=== PATIENT | female | born 1950 | race Caucasian/White ===

== ENCOUNTER 2017-06-26 11:09 | Day surgery (SDC) | payer MEDICARE ==
[~2017-06-26 11:09] MED LIST: Buffered Lidocaine 0.9% SYRIN* 5 ML/SYR SYRINGE INTRADERM ONE; Famotidine IV* 10 MG/ML 2 ML (20 mg) IV ONE; Metoclopramide TAB* 10 MG PO ONE
[2017-06-26] MEDS ORDERED: Buffered Lidocaine 0.9% SYRIN* 5 ML/SYR SYRINGE ONE (11:24)
[2017-06-26] MEDS ORDERED: Famotidine IV* 10 MG/ML 2 ML (20 mg) ONE (11:24)
[2017-06-26] MEDS ORDERED: Metoclopramide TAB* 10 MG ONE (11:24)
[2017-06-26] MEDS ORDERED: ceFAZolin 2 GM PREMIX (*) 2 GM/50 ML BAG IVPB ONE (11:24)
[2017-06-26] MEDS ORDERED: Propofol* 10 MG/ML 20 ML BTL IV PUSH ONE (11:42)
[2017-06-26] MEDS ORDERED: Ondansetron INJ* 2 MG/ML VIAL ONE (11:42)
[2017-06-26] MEDS ORDERED: KETAMINE HCL* 50 MG/ML 10 ML VIAL ONE (11:42)
[2017-06-26] MEDS ORDERED: Lidocaine 2% PF * 5 ML VIAL ONE (11:42)
[2017-06-26] MEDS ORDERED: Midazolam* 1 MG/ML 5 ML VIAL (5 MG) ONE (11:42)
[2017-06-26] MEDS ORDERED: fentaNYL* 50 MCG/ML 2 ML VIAL (100 MCG VIAL) ONE (11:42)
[2017-06-26] MEDS ORDERED: Dexamethasone IV* 4 MG/ML 1 ML (4 MG) ONE (11:42)
[2017-06-26] MEDS ORDERED: Ketorolac INJ* 30 MG/ML 1 ML VIAL ONE (11:42)
[2017-06-26] MEDS ORDERED: Neostigmine Methylsulfate* 2 MG/2 ML SYRINGE ONE (11:50)
[2017-06-26] MEDS ORDERED: Glycopyrrolate IV* 0.2 MG/ML 1 ML VIAL ONE (11:50)
[2017-06-26] MEDS ORDERED: Labetalol IV* 5 MG/ML 20 ML VIAL ONE (12:08)
[2017-06-26] MEDS ORDERED: Lidocaine 1% INJ* 10 MG/ML 30 ML SDV ONE (12:27)
[2017-06-26] MEDS ORDERED: Bupivacaine 0.5% SDV PF* 30 ML VIAL ONE (12:27)
[2017-06-26] MEDS ORDERED: Ondansetron INJ* 2 MG/ML VIAL IV PRN (13:23)
[2017-06-26] MEDS ORDERED: fentaNYL* 50 MCG/ML 2 ML VIAL (100 MCG VIAL) IV PRN (13:23)
[2017-06-26] MEDS ORDERED: EPHEDrine (Pressors)* 50 MG/ML VIAL ONE (13:28)
[2017-06-26] MEDS ORDERED: oxyCODONE/Acetamin 5/325 MG* TAB PO PRN (13:45)
--- NOTE | 2017-06-26 13:51 | PN ---
Progress Note - Progress Note Date of Service: 06/26/17 Note: Brief Operative Note: Pre-op: Left inguinal lymphadenopathy; hx marginal zone lymphoma Post-op: Same Surgery: Excision of left inguinal lymph nodes Surgeon: Dr. Lay Linen Folder: EMILIO Sheets Anaesthesia: MAC and local EBL: Minimal Fluids: LR 500 cc Catheter: None Drains: None Specimen: Left inguinal lymph nodes Findings: See dictated op note
[2017-06-26 15:00] VITALS: BP 111/73
--- NOTE | 2017-06-29 10:24 | OP ---
CC: Dr. Sayda Mcneill; Dr. Mono Loredo, [facility] DATE OF OPERATION: 06/26/17 DATE OF : 52 SURGEON: Camden Lay MD. CENTER REP: EMILIO Kruse. ANESTHESIOLOGIST: ANESTHESIA: Local MAC anesthesia. PRE-OP DIAGNOSES: Left inguinal lymphadenopathy and history of marginal zone lymphoma. POST-OP DIAGNOSES: Left inguinal lymphadenopathy and history of marginal zone lymphoma. PROCEDURE: Excision of left inguinal lymph node. ESTIMATED BLOOD LOSS: Minimal blood loss. IV FLUIDS: 500 cc crystalloid fluid given. SPECIMENS: Left inguinal lymph node. DRAINS: None. DESCRIPTION OF PROCEDURE: The patient was identified in the preoperative. The area was marked. Con sent was signed. She was brought to the operating room. General sedation was given. The patient's l eft groin and lower abdomen were prepped and draped sterilely and a time-out was performed. The patient had received preoperative antibiotics and sequential devices. Injection with lidocaine for local block was performed and a transverse site overlying the lesion, th is incision was made. Flaps are made both superiorly and inferiorly and lymph node was removed both with blunt and sharp dissection in its entirety and passed off as specimen. The wound was then irrig ated. Hemostasis achieved. The the skin was reapproximated with 3-0 Polysorb sutures followed by 4- 0 Monocryl subcuticular stitches. Steri-strips and sterile dressings were applied. [id number]/[facility] #: [id number]
== END 2017-06-26 15:10 | disposition home or self-care (01) ==
LOC: OR 11:09
PROVIDERS: ATTEND Surgery
DX: C83.05 Small cell B-cell lymphoma, lymph nodes of inguinal region and lower limb (principal); E03.9 Hypothyroidism, unspecified; F17.210 Nicotine dependence, cigarettes, uncomplicated; C83.84 Other non-follicular lymphoma, lymph nodes of axilla and upper limb
CPT/HCPCS: 88184; 88185; 88188; 88307; 88333; 88341; 88342; 88360; A9270-GY; J0690; J1100; J1885; J2001; J2250; J2405; J2704; J3010

== ENCOUNTER 2018-05-22 07:52 | Inpatient (IN) | payer MEDICARE ==
[2018-05-22] MEDS: NS 0.9% 1000 ML* 2,000 ML IV ONE ×2 (08:24→08:25)
[2018-05-22] MEDS ORDERED: Meclizine TAB* 12.5 MG PO ONE (08:26)
[2018-05-22 08:41] LABS: EGFR Non-African American 44.5 (>60)
[2018-05-22 09:10] LABS: ABS Basophils 0.1 10^3/ul (0-0.2); ABS Eosinophils 0.2 10^3/ul (0-0.6); ABS Lymphocytes 2.1 10^3/ul (1.0-4.8); ABS Monocytes 0.5 10^3/ul (0-0.8); ABS Neutrophils 6.7 10^3/ul (1.5-7.7); ABS Nucleated RBC 0 10^3/ul; Eosinophil % 1.8 % (0-6); Hematocrit 43 % (35-47); Hemoglobin 14.4 g/dl (12.0-16.0); Lymphocyte % 21.8 % (25-47); Mean Corpuscular HGB Conc 33 g/dl (31-36); Mean Corpuscular Hemoglobin 33 pg (27-31); Mean Corpuscular Volume 98 fL (80-97); Mean Platelet Volume 8.8 um3 (7.4-10.4); Nucleated Red Blood Cells % 0; Platelet Count 308 10^3/ul (150-450); Red Blood Count 4.38 10^6/ul (4.00-5.40); Red Cell Distribution Width 15 % (10.5-15); White Blood Count 9.6 10^3/ul (3.5-10.8)
--- NOTE | 2018-05-22 09:24 | RAD ---
INDICATION: Dizziness, diaphoresis. COMPARISON: Comparison is made with a prior study from November 19, 2010. TECHNIQUE: AP and lateral views of the chest were obtained. FINDINGS: The heart is within normal limits in size. Mediastinal and hilar contours appear within normal limits. The lungs are underinflated and clear. No pleural effusion is seen. IMPRESSION: NO EVIDENCE FOR ACTIVE CARDIOPULMONARY DISEASE.
[2018-05-22] MEDS ORDERED: LORazepam INJ* 2 MG/ML 1 ML VIAL IV PUSH ONE (09:54)
[2018-05-22] MEDS ORDERED: Iodixanol* (CONTRAST) 320 MG/ML 100 ML SDV IV ONE (10:13)
--- NOTE | 2018-05-22 11:06 | RAD ---
HISTORY: dizziness COMPARISONS: None TECHNIQUE: Multiple contiguous axial CT scans were obtained of the head without intravenous contrast. FINDINGS: The study is limited by patient motion artifact. HEMORRHAGE/INFARCT: There is no hemorrhage or acute infarct. MASSES/SHIFT: There is no mass or shift. EXTRA-AXIAL SPACES: There are no extra-axial fluid collections. SULCI AND VENTRICLES: The sulci and ventricles are normal in size and position for the patient's stated age. CEREBRUM: There are no focal parenchymal abnormalities. BRAINSTEM: There are no focal parenchymal abnormalities. CEREBELLUM: There are no focal parenchymal abnormalities. VESSELS: The vessels are grossly normal. PARANASAL SINUSES: The paranasal sinuses are clear. ORBITS: The orbits are unremarkable. BONES AND SOFT TISSUE: No bone or soft tissue abnormalities are noted. OTHER: None IMPRESSION: NO ACUTE INTRACRANIAL PATHOLOGY.
--- NOTE | 2018-05-22 11:07 | RAD ---
HISTORY: CA hx/ SOB/ diaphoretic COMPARISONS: PET/CT dated May 31, 2017 TECHNIQUE: Multiple contiguous axial CT scans of the chest were obtained after the administration of nonionic intravenous contrast, timed to the pulmonary arterial phase of contrast enhancement.. Coronal and sagittal multiplanar reformations are also submitted for review. FINDINGS: NECK AND THYROID: The lower neck and thyroid are unremarkable. CHEST WALL: There is no lower cervical, axillary, or supraclavicular lymphadenopathy by size criteria. HEART AND PERICARDIUM: The heart is unremarkable. AORTA AND PULMONARY VASCULATURE: There is no pulmonary arterial filling defect to suggest pulmonary embolism. The aorta is not well evaluated secondary to technique and phase of contrast demonstration. There is mild calcific atherosclerosis disease. The aorta is otherwise grossly normal.. MEDIASTINUM: There is no mediastinal lymphadenopathy by size criteria. DONNA: There is no hilar lymphadenopathy by size criteria. AIRWAY AND ESOPHAGUS: The airway is unremarkable, without endobronchial filling defect. The esophagus is grossly normal. LUNG PARENCHYMA: The lungs are clear. PLEURA: No pleural abnormalities are noted. UPPER ABDOMEN: The upper abdomen is unremarkable. BONES AND SOFT TISSUES: No bone or soft tissue abnormalities are noted. OTHER: None. IMPRESSION: NO PULMONARY ARTERIAL FILLING DEFECT TO SUGGEST PULMONARY EMBOLISM.
[2018-05-22 11:17] LABS: Urine Appearance Cloudy; Urine Blood Negative (Negative); Urine Color Yellow; Urine Ketones Negative (Negative); Urine Protein Negative (Negative); Urine Red Blood Cell 1+(3-5/hpf) (Absent); Urine Specific Gravity 1.019 (1.010-1.030); Urine Urobilinogen Negative (Negative); Urine White Blood Cell 3+(>20/hpf) (Absent)
[2018-05-22] MEDS: Heparin VIAL(*) 5000 UNITS/ML VIAL (FIVE THOUSAND) SUBCUT SCH ×2 (14:10→22:11)
--- NOTE | 2018-05-22 16:16 | RAD ---
HISTORY: Dizziness COMPARISONS: CT dated May 22, 2018 TECHNIQUE: The following sequences were obtained of the head: Sagittal T1-weighted images, axial T2-weighted images, axial FLAIR images, axial susceptibility weighted images, axial T1-weighted images. Additionally, axial diffusion-weighted images were obtained with calculated apparent diffusion coefficients. FINDINGS: HEMORRHAGE/INFARCT: There is no hemorrhage or acute infarct. MASSES/SHIFT: There is no mass or shift. EXTRA-AXIAL SPACES/MENINGES: There are no extra-axial fluid collections. SULCI AND VENTRICLES: The sulci and ventricles are normal in size and position for the patient's stated age. CEREBRUM: There are multiple scattered small foci of elevated T2/FLAIR signal within the periventricular and subcortical white matter. BRAINSTEM: There are no focal parenchymal abnormalities. CEREBELLUM: There are no focal parenchymal abnormalities. The cerebellar tonsils are normal in size and position. SELLA: The sella is normal. PINEAL: The pineal region is clear. CP ANGLE/TEMPORAL BONES: The labyrinthine structures are grossly normal. VESSELS: Normal flow-voids are noted within the visualized vertebral vasculature. DIFFUSION ABNORMALITIES: There are no diffusion abnormalities. PARANASAL SINUSES/MASTOIDS: The paranasal sinuses are clear. ORBITS: The orbits are unremarkable. BONES AND SOFT TISSUE: No bone or soft tissue abnormalities are noted. OTHER: None IMPRESSION: 1. THERE ARE MULTIPLE FOCI OF ELEVATED T2/FLAIR SIGNAL WITHIN THE PERIVENTRICULAR AND SUBCORTICAL WHITE MATTER. WHILE THESE FINDINGS ARE NONSPECIFIC, THEY CAN BE SEEN IN ASSOCIATION WITH MIGRAINE HEADACHE, THE SEQUELA OF PREVIOUS INFECTION OR INFLAMMATION, AND CHRONIC SMALL VESSEL ISCHEMIA. DEMYELINATING DISEASE IS ALSO WITHIN THE DIFFERENTIAL, BUT IS CONSIDERED LESS LIKELY IN THE ABSENCE OF THE APPROPRIATE CLINICAL PRESENTATION. 2. THERE IS NO RESTRICTED DIFFUSION TO SUGGEST ACUTE INFARCT.
[2018-05-22] MEDS: Meclizine TAB* 12.5 MG PO PRN (18:51)
--- NOTE | 2018-05-22 21:07 | HP ---
CC: Mono Loredo MD * HISTORY AND PHYSICAL: DATE OF ADMISSION: 05/22/18 PRIMARY CARE PROVIDER: Mono Loredo MD ATTENDING PHYSICIAN: Marlo Thomas MD * (dictated by Megha Trejo NP) CHIEF COMPLAINT: Dizziness and vomiting. HISTORY OF PRESENT ILLNESS: Ms. Sarmiento is a 67-year-old female with past medical history significant for hypothyroidism and low-grade non-Hodgkin's lymphoma who states that she has been in her usual health over the last few days with the exception of "fan sounds" in her right ear intermittently. She states that she rolled over this morning in bed at approximately 6 am and developed dizziness. She describes this as "room spinning". This is also accompanied by vomiting this morning. She denies any fevers, chills, chest pain , cough, upper respiratory symptoms, shortness of breath, abdominal pain, any urinary symptoms such as urgency, dysuria, or changes in frequency. Due to her dizziness and vomiting, her daughter brought her to the emergency room for further evaluation of her symptoms. While in the emergency room, the patient received meclizine, 2 L of normal saline, Ativan. She had a urinalysis that was unremarkable and EKG showing a sinus noe, head CTA showing no acute pathology, a CTA of her chest showing no PE. It has been noted on triage, the patient was noted to be hypoxic with O2 sats 84% on room air. She was maintaining oxygen saturation levels in the high 90s to 100s on 3 L, and on 2 L via nasal cannula she is in the low 90s. The patient notes that she has continued to have dizziness in the emergency room when she opens her eyes. This is exacerbated by evaluating eye movement. The patient reports that the fanned noise in her right ear has resolved during her time in the emergency room. She was influenza A, B negative. She had a head CT with no acute intracranial pathology, a chest CTA showing no PE. The patient received Ativan while in the ER. She is more lethargic and drowsy after receiving the Ativan. Per her daughter, her speech is slower but this was not occurring prior to receiving the Ativan in the emergency room. She has no other speech or neurological deficits. The hospitalists were asked to evaluate the patient for admission. PAST MEDICAL HISTORY: 1. Hypothyroidism. 2. Non-Hodgkin's lymphoma. PAST SURGICAL HISTORY: 1. Status post right inguinal hernia repair as a child. 2. Status post tubal ligation. MEDICATIONS: Home medications include levothyroxine 250 mcg oral daily. ALLERGIES: No known drug allergies. FAMILY HISTORY: The patient's mother with a history of an AR. Sister with heart disease. Mother with type 2 diabetes mellitus. Her mother has a history of blood cancer, she is unsure the name of it. Additionally, she had a brother with metastatic cancer with unknown cause. SOCIAL HISTORY: She smokes a half a pack a day. She smoked for the last 54 years. She occasionally drinks alcohol. Denies recreational drug use. Her daughter, Celeste Sarmiento, will be her surrogate decision maker in the event she is unable to make decisions for herself. REVIEW OF SYSTEMS: I performed an 11-point review of systems. All the pertinent positives and negatives are mentioned in the history of present illness. The remaining review of systems is negative. PHYSICAL EXAMINATION GENERAL APPEARANCE: The patient is alert, pleasant, appears to be in no acute distress. VITAL SIGNS: Temperature 97.4, heart rate 57, respiratory rate 21, O2 sat 95% on 3 L via nasal cannula, blood pressure 117/81. HEENT: Normocephalic, atraumatic. Pupils are equal and reactive to light. Extraocular movements are intact. The patient is noted to have resting nystagmus in addition to horizontal nystagmus with eye movement. RESPIRATORY: There is no accessory muscle use. Her lungs are clear to auscultation, bilateral. CARDIOVASCULAR: Regular rate and rhythm. S1, S2 present. There are no murmurs , rubs, or gallops heard. ABDOMEN: Soft, nontender, nondistended. There are bowel sounds present x4. EXTREMITIES: There is no lower extremity edema. DP, PT pulses are 1+ and symmetric. MUSCULOSKELETAL: There is no clubbing or cyanosis noted. The patient exhibits good strength in all extremities. NEUROLOGICAL: The patient is alert and oriented x4. Cranial nerves II through XII are grossly intact. Her handgrips are equal. She has strong dorsi and plantarflexion. Again, she moves all her extremities. As above, she is noted to have resting and horizontal nystagmus. PSYCHOLOGICAL: The patient is calm and cooperative. SKIN: There are no rashes or abnormalities seen. DIAGNOSTIC STUDIES/LAB DATA: Sodium 140, potassium 3.8, chloride 101, CO2 of 33, BUN 17, creatinine 1.21, glucose 162. White blood cell count 9.6, hemoglobin 14.4, hematocrit 43, platelet count 308,000. Influenza A, B negative. Urinalysis significant for leukocyte esterase 2+, wbc's 3+, rbc's 1+, squamous epithelial cells present, and hyaline casts present. EKG shows a sinus bradycardia, rate of 58. There are no acute signs of ischemia. This is similar to previous from 11/19/10. Brain CT from today. Radiologist's impression: No acute intracranial pathology. Chest CTA from today. Radiologist's impression: No pulmonary arterial filling defect to suggest pulmonary embolus. IMPRESSION: Ms. Sarmiento is a 67-year-old female with past medical history significant for hypothyroidism and low-grade non-Hodgkin's lymphoma who presented to the emergency room with complaints of dizziness. She will be admitted as an observation for dizziness and rule out cerebrovascular accident. ASSESSMENT/PLAN: 1. Dizziness. This could represent a vestibular pathology or a stroke. We will monitor her on telemetry. I am going to check an MRI. If this is negative , I will hold on further stroke workup. If this is positive for a stroke, we will get an echocardiogram. Additionally, I will check fasting lipids. We will do neuro checks q.4 hours. I will check orthostatic vital signs. 2. Hypoxia. She had a CTA of her chest and that is negative for a pulmonary embolism. It is unclear if she typically runs hypoxic at baseline with her smoking history. I am going to check an ABG and continue supplemental oxygen as needed. 3. Acute kidney injury. The patient's creatinine appears to be elevated above her baseline. I am going to give her some IV fluids. I will recheck labs in the morning. 4. Hypothyroidism. We will continue her on her home levothyroxine dosing. 5. Non-Hodgkin's lymphoma. The patient will continue to follow with her PCP and Oncology. This is not an active issue. 6. Obesity. The patient's BMI is approximately 29. 7. Fluids, electrolytes, and nutrition. She will be on a regular diet. 8. Code status. Full code. 9. DVT prophylaxis. She is at high risk. She will be on subcu heparin. 10. Disposition. Observation. TIME SPENT: Time for this admission was approximately 60 minutes, greater than half of that was spent with the patient and her daughter discussing medications , past medical history, events leading to her arrival today, performing a physical examination. The case has been reviewed with the attending, Dr. Thomas, who agrees with the plan of care. Reviewed by GUANACO COURTNEY 05/25/18 [id number]/[facility] #: [id number] MTDD
[2018-05-23] MEDS: Heparin VIAL(*) 5000 UNITS/ML VIAL (FIVE THOUSAND) SUBCUT SCH ×2 (06:34→14:09)
[2018-05-23 07:04] LABS: EGFR Non-African American 44.9 (>60)
[2018-05-23] MEDS: Meclizine TAB* 12.5 MG PO PRN (07:51)
[2018-05-23] MEDS: Levothyroxine TAB* 50 MCG TAB PO SCH (07:51)
[2018-05-23] MEDS ORDERED: Diazepam TAB(*) 5 MG PO PRN (10:21)
--- NOTE | 2018-05-23 13:00 | ECHO ---
Patient: NIDHI QUEVEDO [facility] Rec#: [id number] : 1950 Date: 05/23/2018 Age: 67y Height: 177 cm / 69.7 in Weight: 90.7 kg / 199.9 lbs Sex: F BSA: 2.1 Room#: [facility] Admit Date#: 05/22/2018 Type: Inpatient Referring: Izabella Live Reading: Camden Salgado DO [employer] Fab[employer]ator: Kristin Way RN RDCS CC: Mono Loredo MD Transthoracic Echocardiogram Indication: TIA BP: 116/82 HR: 60 Rhythm: NSR with PACs Findings History: Thyroid disease, low grade non-Hodgkins lymphoma, smoker Technical Comments: The study is technically limited due to patient body habitus. The study is technically limited due to the patient's smoking history. Left Ventricle: The left ventricular chamber size is normal. Mild concentric left ventricular hypertrophy is observed. Global left ventricular wall motion and contractility are within normal limits. There is normal left ventricular systolic function. The estimated ejection fraction is 60-65%. There is no consistent Doppler evidence of clinically significant diastolic dysfunction. Left Atrium: The left atrial chamber size is normal. Right Ventricle: The right ventricular chamber size and systolic function are within normal limits. Right Atrium: The right atrial cavity size is normal. The bubble study is negative. A patent foramen ovale is not demonstrated with color Doppler and agitated contrast. Aortic Valve: The aortic valve is trileaflet. The aortic valve leaflets are mildly thickened. There is trace to mild aortic regurgitation. There is no evidence of aortic stenosis. Mitral Valve: The mitral valve leaflets are mildly thickened. There is a trace of mitral regurgitation. There is no evidence of mitral stenosis. Tricuspid Valve: The tricuspid valve structure is not well visualized. There is trace tricuspid regurgitation. Unable to estimate the right ventricular systolic pressure. Pulmonic Valve: The pulmonic valve appears normal. There is a trace pulmonic regurgitation. There is no pulmonic stenosis. Pericardium: There is no significant pericardial effusion. Aorta: There is no dilatation of the ascending aorta. There is no dilatation of the aortic arch. There is mild dilatation of the aortic root. Pulmonary Artery: The main pulmonary artery is not well visualized. Venous: The venous system is not well visualized. The inferior vena cava is not visualized. Contrast: Normal saline was used as contrast for the bubble study. Images 1 and 2. Conclusions The left ventricular chamber size is normal. Mild concentric left ventricular hypertrophy is observed. Global left ventricular wall motion and contractility are within normal limits. There is normal left ventricular systolic function. The estimated ejection fraction is 60-65%. The left atrial chamber size is normal. The right ventricular chamber size and systolic function are within normal limits. No significant valvular abnormalities noted The bubble study is negative. There is mild dilatation of the aortic root. None prior for comparison at time of interpretation Measurements Name Value Normal Range RVDdMajor (2D) 2.7 cm (2.2 - 4.4) RAd ISD 4CH 4.1 cm (3.4 - 4.9) RA (A4C)W 3.5 cm (2.9 - 4.6) IVSd (2D) 1.1 cm (0.6 - 1) LVPWd (2D) 1.1 cm (0.6 - 1) LVIDd (2D) 4.4 cm (3.6 - 5.4) LVIDs (2D) 2.8 cm - LV FS (2D) 36 % (25 - 45) Aortic Annulus 2.3 cm (1.4 - 2.6) Ao root diameter (2D) 3.6 cm (2.1 - 3.5) Ascending Ao 3.5 cm (2.1 - 3.4) Aortic arch 2.9 cm (1.8 - 3.4) LA dimension (AP) 2D 3.1 cm (2.3 - 3.8) LAd ISD 4CH 4.2 cm (2.9 - 5.3) LA ISD 4CH W 3.8 cm (2.5 - 4.5) Name Value Normal Range LA ESV BP (A/L) index 14.5 ml/m2 - Name Value Normal Range MV E-wave Vmax 0.88 m/sec - MV deceleration time 222 msec - MV A-wave Vmax 0.77 m/sec - MV E:A ratio 1.1 ratio - LV septal e' Vmax 0.07 m/sec - LV lateral e' Vmax 0.06 m/sec - LV E:e' septal ratio 12.6 ratio - LV E:e' lateral ratio 14.7 ratio - Name Value Normal Range AV Vmax 1.2 m/sec - AV VTI 26.2 cm - AV peak gradient 6 mmHg - AV mean gradient 3 mmHg - LVOT Vmax 0.74 m/sec - LVOT VTI 14.6 cm - LVOT peak gradient 2 mmHg - LVOT mean gradient 1 mmHg - WINDY Vmax 0.52 m/sec - Name Value Normal Range PV Vmax 0.43 m/sec -
--- NOTE | 2018-05-23 13:07 | RAD ---
HISTORY: acute vertigo COMPARISONS: MRI of the brain dated May 22, 2018 TECHNIQUE: 3-D axial [id number] MR angiography was performed of the head to include the in[place] of [place]. Multiple 3-D maximum intensity projection reconstructions are also submitted for review. FINDINGS: The study is limited by patient motion artifact. RIGHT VERTEBRAL ARTERY: The distal right vertebral artery is unremarkable, without stenosis. LEFT VERTEBRAL ARTERY: The distal left vertebral artery is unremarkable, without stenosis. DOMINANCE: The vertebral arteries are codominant. DISTAL RIGHT CERVICAL INTERNAL CAROTID ARTERY: The distal right cervical internal carotid artery is unremarkable. DISTAL LEFT CERVICAL INTERNAL CAROTID ARTERY: The distal left cervical internal carotid artery is unremarkable. INTRACRANIAL CIRCULATION: There is no aneurysm, vascular malformation, occlusion, or stenosis of the visualized intracranial circulation. The anterior communicating artery complex is clear. The posterior communicating arteries are diminutive if present. OTHER FINDINGS: None IMPRESSION: LIMITED STUDY. NO ANEURYSM, VASCULAR MALFORMATION, OCCLUSION, OR STENOSIS OF THE VISUALIZED INTRACRANIAL CIRCULATION.
--- NOTE | 2018-05-23 13:10 | RAD ---
HISTORY: Dizziness, suspect left cerebellar stroke COMPARISONS: May 22, 2018 TECHNIQUE: The following sequences were obtained of the head: Sagittal T1-weighted images, axial T2-weighted images, axial FLAIR images, axial susceptibility weighted images, axial T1-weighted images. Additionally, axial diffusion-weighted images were obtained with calculated apparent diffusion coefficients. FINDINGS: HEMORRHAGE/INFARCT: There is no hemorrhage or acute infarct. MASSES/SHIFT: There is no mass or shift. EXTRA-AXIAL SPACES/MENINGES: There are no extra-axial fluid collections. SULCI AND VENTRICLES: The sulci and ventricles are normal in size and position for the patient's stated age. CEREBRUM: There are multiple scattered small foci of elevated T2/FLAIR signal within the periventricular and subcortical white matter. BRAINSTEM: There are no focal parenchymal abnormalities. CEREBELLUM: There are no focal parenchymal abnormalities. On axial images, left inferior cerebellum appears mildly dysplastic, though this is felt to represent volume averaging through a mildly prominent left cerebellar fissure. The cerebellar tonsils are normal in size and position. SELLA: The sella is normal. PINEAL: The pineal region is clear. CP ANGLE/TEMPORAL BONES: The labyrinthine structures are grossly normal. VESSELS: Normal flow-voids are noted within the visualized vertebral vasculature. DIFFUSION ABNORMALITIES: There are no diffusion abnormalities. PARANASAL SINUSES/MASTOIDS: The paranasal sinuses are clear. There are small bilateral mastoid effusions. ORBITS: The orbits are unremarkable. BONES AND SOFT TISSUE: No bone or soft tissue abnormalities are noted. OTHER: None IMPRESSION: 1. STABLE SCATTERED NONSPECIFIC WHITE MATTER CHANGES. 2. NO RESTRICTED DIFFUSION TO SUGGEST ACUTE INFARCT.
--- NOTE | 2018-05-23 14:05 | RAD ---
INDICATION: Vertigo. COMPARISON: No relevant prior exams available on the [facility] [place] for [place]. TECHNIQUE: Bilateral carotid duplex scan. Stenosis estimations reflect velocity criteria that have been correlated to angiographic stenosis calculations based on distal internal carotid diameter. REPORT: RIGHT ICA: 44 cm/s peak systolic 20 cm/s end diastolic CCA: 62 cm/s peak systolic ICA/CCA peak systolic ratio: 0.71 The right common carotid artery and internal carotid artery are without evidence for significant atherosclerotic disease. Tortuous RIGHT internal carotid artery. Normal spectral wave forms are present throughout. Antegrade flow in the right vertebral artery. LEFT ICA: 50 cm/s peak systolic 24 cm/s end diastolic CCA: 51 cm/s peak systolic ICA/CCA peak systolic ratio: 1.1 Minimal predominant calcific plaque at the LEFT carotid bulb and proximal internal carotid artery. Normal spectral wave forms are present throughout. Antegrade flow in the left vertebral artery. IMPRESSION: #. Minimal atherosclerotic plaque at the LEFT carotid bifurcation without appreciable internal carotid artery stenosis resulting based on NASCET criteria. #. Negative for atherosclerotic disease at the RIGHT carotid artery. CPT II Codes: 3100F
--- NOTE | 2018-05-23 16:37 | PN ---
Subjective Date of Service: 05/23/18 Interval History: Patient seen and examined. Remains dizzy. Denies chest pain, no SOB, denies palpitations. Intermittent nausea. Family at bedside. Objective Active Medications: Diazepam (Valium Tab(*)) 5 mg PO Q8H PRN PRN Reason: vertigo Stop: 05/24/18 18:00 Last Admin: 05/23/18 11:15 Dose: 5 mg Heparin Sodium (Porcine) (Heparin Vial(*)) 5,000 units SUBCUT Q8HR GURJIT Last Admin: 05/23/18 14:09 Dose: 5,000 units Influenza Virus Vaccine (Fluarix *Quad* 2018-*) 0.5 ml IM .ONCE ONE Stop: 05/24/18 09:01 Levothyroxine Sodium (Synthroid Tab*) 250 mcg PO 0800 [facility] Last Admin: 05/23/18 07:51 Dose: 250 mcg Meclizine HCl (Antivert Tab*) 25 mg PO Q8HR PRN PRN Reason: DIZZINESS Last Admin: 05/23/18 07:51 Dose: 25 mg Vital Signs - 8 hr 05/23/18 05/23/18 05/23/18 11:15 11:26 15:19 Temperature 98.7 F 97.7 F Pulse Rate 63 67 Respiratory 18 18 16 Rate Blood Pressure 112/76 131/67 (mmHg) O2 Sat by Pulse 96 94 Oximetry Oxygen Devices in Use Now: Nasal Cannula Appearance: Drowsy, NAD Eyes: No Scleral Icterus, PERRLA Ears/Nose/Mouth/Throat: Mucous Membranes Moist Neck: NL Appearance and Movements; NL JVP, Trachea Midline Respiratory: Symmetrical Chest Expansion and Respiratory Effort, Clear to Auscultation Cardiovascular: NL Sounds; No Murmurs; No JVD Abdominal: NL Sounds; No Tenderness; No Distention Extremities: No Edema, No Clubbing, Cyanosis Skin: No Rash or Ulcers Neurological: Alert and Oriented x 3, NL Muscle Strength and Tone Nutrition: Taking PO's Result Diagrams: 05/22/18 08:14 05/23/18 06:13 Microbiology and Other Data: Microbiology 05/22/18 10:13 Urine Culture - Final Urine 05/22/18 08:16 Influenza Types A,B Antigen - Final Nasal Specimen received for Influenza A/B Molecular testing Diagnostic Imaging: Patient Name: NIDHI QUEVEDO Vidal Medical Record#: [id number] Ordering Physician: Stephanie Paiz MD Acct.#: [id number] : 1950 Age: 67 Sex: F Location: 4 [facility]/TELEMETRY Exam Date: 05/23/18 1041 ADM Status: ADM Seema Order Information: VL CAROTID BILATERAL Accession Number: [id number] CPT: 01708 INDICATION: Vertigo. COMPARISON: No relevant prior exams available on the [facility] PACS for comparison. TECHNIQUE: Bilateral carotid duplex scan. Stenosis estimations reflect velocity criteria that have been correlated to angiographic stenosis calculations based on distal internal carotid diameter. REPORT: RIGHT ICA: 44 cm/s peak systolic 20 cm/s end diastolic CCA: 62 cm/s peak systolic ICA/CCA peak systolic ratio: 0.71 The right common carotid artery and internal carotid artery are without evidence for significant atherosclerotic disease. Tortuous RIGHT internal carotid artery. Normal spectral wave forms are present throughout. Antegrade flow in the right vertebral artery. LEFT ICA: 50 cm/s peak systolic 24 cm/s end diastolic CCA: 51 cm/s peak systolic ICA/CCA peak systolic ratio: 1.1 Minimal predominant calcific plaque at the LEFT carotid bulb and proximal internal carotid artery. Normal spectral wave forms are present throughout. Antegrade flow in the left vertebral artery. IMPRESSION: #. Minimal atherosclerotic plaque at the LEFT carotid bifurcation without appreciable internal carotid artery stenosis resulting based on NASCET criteria. #. Negative for atherosclerotic disease at the RIGHT carotid artery. CPT II Codes: 3100F Patient Name: NIDHI QUEVEDO Medical Record#: [id number] Ordering Physician: Stephanie Paiz MD Acct.#: [id number] : 1950 Age: 67 Sex: F [facility] 4 [facility] Exam Date: 05/23/18 1003 ADM Status: ADM Seema Order Information: MRI BRAIN W/O Accession Number: [id number] CPT: 36265 HISTORY: Dizziness, suspect left cerebellar stroke COMPARISONS: May 22, 2018 TECHNIQUE: The following sequences were obtained of the head: Sagittal T1- weighted images, axial T2-weighted images, axial FLAIR images, axial susceptibility weighted images, axial T1-weighted images. Additionally, axial diffusion-weighted images were obtained with calculated apparent diffusion coefficients. FINDINGS: HEMORRHAGE/INFARCT: There is no hemorrhage or acute infarct. MASSES/SHIFT: There is no mass or shift. EXTRA-AXIAL SPACES/MENINGES: There are no extra-axial fluid collections. SULCI AND VENTRICLES: The sulci and ventricles are normal in size and position for the patient's stated age. CEREBRUM: There are multiple scattered small foci of elevated T2/FLAIR signal within the periventricular and subcortical white matter. BRAINSTEM: There are no focal parenchymal abnormalities. CEREBELLUM: There are no focal parenchymal abnormalities. On axial images, left inferior cerebellum appears mildly dysplastic, though this is felt to represent volume averaging through a mildly prominent left cerebellar fissure. The cerebellar tonsils are normal in size and position. SELLA: The sella is normal. PINEAL: The pineal region is clear. CP ANGLE/TEMPORAL BONES: The labyrinthine structures are grossly normal. VESSELS: Normal flow-voids are noted within the visualized vertebral vasculature. DIFFUSION ABNORMALITIES: There are no diffusion abnormalities. PARANASAL SINUSES/MASTOIDS: The paranasal sinuses are clear. There are small bilateral mastoid effusions. ORBITS: The orbits are unremarkable. BONES AND SOFT TISSUE: No bone or soft tissue abnormalities are noted. OTHER: None IMPRESSION: 1. STABLE SCATTERED NONSPECIFIC WHITE MATTER CHANGES. 2. NO RESTRICTED DIFFUSION TO SUGGEST ACUTE INFARCT. <Electronically signed by Jason Gardner MD in OV> 05/23/18 130 Dictated By: Jason Gardner MD Dictated Date/Time: 05/23/18 130 Transcribed Date/Time: 05/23/18 130 This report is only to be considered final once signed by the Provider(s) as displayed in the "<Electronically Signed by >" field (s). Absence of a signature indicates the report is in a draft status and still needs to be finalized. In the event this document was created by someone other than the signing Provider, the individual initiating the document will be listed in the "Entered by:" or "Dictated by:" reyez. 1 of 2 Patient Name: NIDHI QUEVEDO Medical Record#: [id number] Ordering Physician: Na JHAVERI Acct.#: [id number] : 1950 Age: 67 Sex: F Location: EMERGENCY DEPARTMENT Exam Date: 05/22/18 0951 ADM Status: REG ER Order Information: CTA CHEST Accession Number: [id number] CPT: 67660 HISTORY: CA hx/ SOB/ diaphoretic COMPARISONS: PET/CT dated May 31, 2017 TECHNIQUE: Multiple contiguous axial CT scans of the chest were obtained after the administration of nonionic intravenous contrast, timed to the pulmonary arterial phase of contrast enhancement.. Coronal and sagittal multiplanar reformations are also submitted for review. FINDINGS: NECK AND THYROID: The lower neck and thyroid are unremarkable. CHEST WALL: There is no lower cervical, axillary, or supraclavicular lymphadenopathy by size criteria. HEART AND PERICARDIUM: The heart is unremarkable. AORTA AND PULMONARY VASCULATURE: There is no pulmonary arterial filling defect to suggest pulmonary embolism. The aorta is not well evaluated secondary to technique and phase of contrast demonstration. There is mild calcific atherosclerosis disease. The aorta is otherwise grossly normal.. MEDIASTINUM: There is no mediastinal lymphadenopathy by size criteria. DONNA: There is no hilar lymphadenopathy by size criteria. AIRWAY AND ESOPHAGUS: The airway is unremarkable, without endobronchial filling defect. The esophagus is grossly normal. LUNG PARENCHYMA: The lungs are clear. PLEURA: No pleural abnormalities are noted. UPPER ABDOMEN: The upper abdomen is unremarkable. BONES AND SOFT TISSUES: No bone or soft tissue abnormalities are noted. OTHER: None. IMPRESSION: NO PULMONARY ARTERIAL FILLING DEFECT TO SUGGEST PULMONARY EMBOLISM. <Electronically signed by Jason Gardner MD in OV> 05/22/18 110 Dictated By: Jason Gardner MD Dictated Date/Time: 05/22/18 110 Transcribed Date/Time: 05/22/18 110 Copy to: Assess/Plan/Problems-Billing Assessment: This is a 67 year old female with history of low grade lymphoma and tobacco abuse, that presented to the ER with complaint of persistent, intractable dizziness, hypoxia, and vomiting. - Patient Problems (1) Dizziness Code(s): R42 - DIZZINESS AND GIDDINESS SNOMED Code(s): 516423370 Comment: - r/o TIA vs. CVA vs BPPV? Confounding with episode of afib overnight - MRI, MRA, US carotids as above - Neurology consult appreciated, [place] Maneuvers applied by Dr. Paiz, appears to be improved - ECHO with negative bubble study - Continue meclizine and valium PRN with anti-emetics - PT/OT - Optimize lipids, will start high dose statin and AC (2) History of lymphoma Code(s): Z85.79 - PRSNL HX OF MALIG NEOPLM OF LYMPHOID, HEMATPOETC & REL TISS SNOMED Code(s): 131115019 Comment: - Stable (3) Hypoxia Code(s): R09.02 - HYPOXEMIA SNOMED Code(s): 022476242 Comment: - Etiology unclear, may be underlaying COPD - CTA chest negative for PE - Wean O2 as tolerated (4) PAF (paroxysmal atrial fibrillation) Code(s): I48.0 - PAROXYSMAL ATRIAL FIBRILLATION SNOMED Code(s): 951157424 Comment: - Noted on tele overnight, not captured on EKG - May be having small embolic events given MRI findings (nothing new or acute though) which may be contributing to current symptoms - Discussed anticoagulation with neurology, does not appear to need rate control, will start eliquis Status and Disposition: Remain inpatient. DC to home when medically stable.
--- NOTE | 2018-05-23 17:45 | CONS ---
NEUROLOGY CONSULTATION NOTE: DATE OF CONSULT: 05/23/18 CONSULTING PROVIDER: Izabella Phipps NP CHIEF COMPLAINT: Dizziness and abnormal MRI. HISTORY OF PRESENT ILLNESS: Ms. Sarmiento is a pleasant 67-year-old female with a history of tobacco use, non-Hodgkin's lymphoma, hypothyroidism, who presented with sudden-onset vertigo. The patient woke up at 6:30 a.m. on 05/22/18. She opened her eyes without having any vertigo. She turned around to get up when suddenly she felt a may of vertiginous sensation. The room was spinning and going towards the left side. She was extremely off-balance. The spinning sensation was continuous. Moving her head right or left worsens the vertigo. She had nausea and vomiting all throughout the morning yesterday. She was unable to stand on her feet due to severe vertigo. She denied any focal weakness or paresthesias. She denied any headaches. She denied any double vision. She denied any swallowing difficulties. She has never had vertigo in the past. She denied any chest pain or palpitation. She denied any hearing loss or tinnitus, but she did have a fan-like sensation/sound in the right ear that lasted for a few hours. The patient was evaluated in the emergency room. She received meclizine with [id number]-[id number]-wg benefit. She continues to be symptomatic this morning. PAST MEDICAL HISTORY: Hypothyroidism, non-Hodgkin's lymphoma, obesity, dyslipidemia. PAST SURGICAL HISTORY: Inguinal hernia repair as a child and tubal ligation. HOME MEDICATION: Levothyroxine 250 mcg oral daily. ALLERGIES: No known drug allergies. FAMILY HISTORY: Her father unfortunately when she was 4 years of age due to a motor vehicle accident. Her mother has a history of myocardial infarction. There is no family history of stroke or seizures. SOCIAL HISTORY: The patient smokes for more than 54 years. She currently averages a half a pack per day. She rarely drinks alcohol. She denied any recreational drugs. REVIEW OF SYSTEMS: A 14-point review of systems was obtained, otherwise negative except for what was mentioned in the HPI. PHYSICAL EXAM: Vitals: Temperature 97.4, heart rate of 59, respiratory rate of 16, oxygen saturation of 93, blood pressure of 116/82. General: Ill- appearing female in no acute distress but feels nauseated and vertiginous. Head is normocephalic without any obvious abnormality. HiNT examination is positive towards the left side. Eyes: Conjunctivae/corneas are clear. Neck: Supple and symmetrical. No carotid bruits. Lungs are clear to auscultation bilaterally. Cardiovascular: Sounds bradycardia with normal S1, S2. Extremities: Normal range of motion with no cyanosis. Skin: No skin lesions or lacerations. Psych: Affect is broad and normal mood. Mental Status: Awake , alert, and oriented to person, place, time, and general circumstances. Speech and language including expression, naming, repetition, and comprehension were assessed and found to be normal. Cranial Nerves: Normal confrontation testing bilaterally. Pupils in mid range and reactive to light measuring 4 mm bilaterally and constricted to 3 mm with light. She has no ptosis. She does have a rotatory horizontally prominent nystagmus with a fast pace going towards the left side on primary gaze. The increase in frequency and intensity of the nystagmus is seen when looking towards the left. She has no double vision. No facial droop. She is able to hear throughout the history process. Symmetrical palatal elevation. Normal strength against resistance. Undilated funduscopic examination reveals no evidence of increased intraocular pressure. She has sharp disc margins. Motor: No abnormal movements, although I found slight decrease in rapid alternating movement on the left upper extremity. 5/5 strength in the upper and lower extremities bilaterally. Reflexes, right/left: Brachioradialis 2/2, biceps 2/2, triceps 2/2, patella 2/2, ankles trace/trace, plantar flexor/mute. Sensation is intact to light touch and pinprick throughout. Coordination: Mild dysmetria to ffwogj-pn-ovqh on the left and more prominent dysmetria to [id number] testing on the left lower extremity. Gait and station were not assessed as the patient is severely vertiginous. DIAGNOSTIC STUDIES/LAB DATA: WBC 9.6, hemoglobin 14.4, hematocrit 43, platelets of 308. Sodium 142, potassium 4.4, chloride 103, creatinine 1.20. Cholesterol 428, LDL cholesterol 256. Urinalysis showed no evidence of bacteria or pyuria. She does have 3+ wbc's and 2+ leukocyte esterase, but she denied any dysuria. She had an EKG that showed a prolonged QTc of 512. She also had a prolonged NE at 222 milliseconds and heart rate of 58. She was found to be in atrial fibrillation intermittently on tele. CT of the chest showed no evidence of pulmonary arterial filling defect to suggest PE. Brain CT showed no acute intracranial pathology. MRI of the brain without contrast showed multiple foci of elevated T2/FLAIR signal throughout the brain with no evidence of an acute ischemic infarction. C-reactive protein was 3.24. TSH was not recently checked. ASSESSMENT AND PLAN: 1. Ms. Mehreen Sarmiento is a pleasant 67-year-old female who has a history of tobacco use and is overweight, who presented with sudden-onset continuous vertigo. On examination, she has concerning neurological signs of primary gaze rotatory with predominantly horizontal nystagmus towards the left side that does not fatigue. This is concerning for a central cause for the vertigo.. Given the slight dysmetria to mxwcgx-ru-gnlu and cmjo-hn-tyjv testing on the left side, I am concerned that she may have had left cerebellar ischemic stroke that was not seen on the initial MRI. Strokes in the posterior fossa can be missed on MRI within the first 24 hours. Other differential diagnosis would be atypical, severe, benign paroxysmal positional vertigo, although we should not be seeing primary gaze nystagmus or any other focal neurological deficits. What may support the benign paroxysmal positional vertigo diagnosis is that her HiNT examination was positive. I started the patient on Valium 5 mg every 8 hours as needed for severe vertigo. Continue meclizine 25 mg every 8 hours. 2. Paroxysmal atrial fibrillation - the patient will require anticoagulation therapy. 3. Abnormal diffuse chronic small vessel disease on MRI - her risk factors include dyslipidemia and chronic tobacco use. It does not appear that this is related to a demyelinating process given that the patient has never had any clinical evidence of demyelinating disease and she has other risk factors to have chronic white matter changes related to small vessel disease. 4. Dyslipidemia - LDL is 256. RECOMMENDATION: I have reordered an MRI of the brain only to obtain the DWI and ADC sequences to confirm that there is no stroke in the posterior fossa. If there is, the patient will confirm the diagnosis that was based off her clinical examination. If the MRI is negative, then we can safely conclude that she has BPPV. Please also obtain an MRA head and an MRA of neck to evaluate the carotid vasculature. She is pending an echo. She will require anticoagulation therapy given the episodes of atrial fibrillation. I will also recommend starting her on high-dose atorvastatin 80 mg daily given her LDL level. I have ordered a TSH and vitamin B12 level. Neurology will continue to follow. TIME SPENT: I spent a total of 70 minutes and greater than 50% was spent directly reviewing the medical chart, obtaining history, examining the patient, education and counseling, and discussing the treatment plan as mentioned above. [id number]/[facility] #: [id number] ELENA
[2018-05-23] MEDS ORDERED: Atorvastatin* 80 MG TAB PO ONE (21:00)
[2018-05-23] MEDS ORDERED: Atorvastatin* 20 MG TAB PO SCH (21:00)
[2018-05-23] MEDS: Apixaban* 5 MG TAB PO SCH (22:08)
--- NOTE | 2018-05-24 06:47 | ED ---
Dizziness - HPI Summary HPI Summary: Patient is a 67-year-old female with a PMH of low-grade non-Hodgkin's lymphoma presenting to the ED with acute onset of dizziness and diaphoresis without chest pain or shortness of breath 2 hours [employer]. Daughter at bedside. Daughter states she became immediately diaphoretic and was unable to stand on her own. She describes the room as spinning. After developing the dizziness, she states she had episodes of vomiting. Denies any fevers, sweats, chills, cough or shortness of breath. She is a heavy smoker 50 years, but has never been diagnosed with COPD. - History Of Current Complaint Chief Complaint: EDNauseaVomitDiarrh Stated Complaint: DIZZINESS Time Seen by Provider: 05/22/18 07:59 Hx Obtained From: Patient Timing: Constant Severity Initially: Mild Severity Currently: Mild Character: Room Spinning Aggravating Factor(s): Other - Not associated with position change or headache Alleviating Factor(s): Nothing Associated Signs And Symptoms: Positive: Nausea, Vomiting. Negative: Diarrhea, Diaphoresis, Unsteady Gait, Visual Changes, Decreased Oral Intake - Risk Factors Cardiac Risk Factors: Negative CVA Risk Factor: Negative - Allergies/Home Medications Allergies/Adverse Reactions: Allergies Allergy/AdvReac Type Severity Reaction Status Date / Time No Known Allergies Allergy Verified 06/26/17 11:38 PMH/Surg Hx/FS Hx/Imm Hx Previously Healthy: Yes Endocrine/Hematology History: Reports: Hx Thyroid Disease - hypothyroidism Cardiovascular History: Denies: Hx Pacemaker/ICD Musculoskeletal History: Reports: Hx Arthritis Sensory History: Reports: Hx Contacts or Glasses Denies: Hx Hearing Aid, Hx Hearing Problem Opthamlomology History: Reports: Hx Contacts or Glasses Psychiatric History: Denies: Hx Panic Disorder - Cancer History Cancer Type, Location and Year: Non hodgekins lymphoma Hx Chemotherapy: No - Surgical History Surgery Procedure, Year, and Place: henia repair as an . thyroid surgery in the s. tubal ligation late . breast bx; lumpectomy Hx Anesthesia Reactions: No - Immunization History Hx Pertussis Vaccination: No Immunizations Up to Date: Yes Infectious Disease History: No Infectious Disease History: Denies: Hx Clostridium Difficile, Hx Hepatitis, Hx Human Immunodeficiency Virus (HIV), Hx of Known/Suspected MRSA, Hx Shingles, Hx Tuberculosis, Traveled Outside the [place] in Last 30 Days - Social History Occupation: Unemployed Lives: With Family Alcohol Use: None Hx Substance Use: No Substance Use Type: Reports: None Hx Tobacco Use: Yes Smoking Status (MU): Heavy Every Day Tobacco Smoker Type: Cigarettes Amount Used/How Often: 1/2 ppd, has smoked on and off since 16 years old Length of Time of Smoking/Using Tobacco: 50 Have You Smoked in the Last Year: Yes Review of Systems Constitutional: Negative Negative: Fever, Chills, Fatigue, Skin Diaphoresis Negative: Palpitations, Chest Pain Negative: Shortness Of Breath, Cough Positive: Nausea. Negative: Abdominal Pain, Vomiting, Diarrhea Genitourinary: Negative Positive: no symptoms reported, see HPI Negative: Arthralgia, Myalgia Negative: Rash, Bruising Positive: Weakness - dizziness Psychological: Normal All Other Systems Reviewed And Are Negative: Yes Physical Exam Triage Information Reviewed: Yes Vital Signs On Initial Exam: Initial Vitals Temp Pulse Resp BP Pulse Ox 97.4 F 68 16 142/79 84 05/22/18 07:54 05/22/18 07:54 05/22/18 07:54 05/22/18 07:54 05/22/18 07:54 Vital Signs Reviewed: Yes Appearance: Positive: Well-Appearing, Well-Nourished Skin: Positive: Warm, Skin Color Reflects Adequate Perfusion Head/Face: Positive: Normal Head/Face Inspection Eyes: Positive: Other: - Nystagmus at rest Neck: Positive: Supple, No Lymphadenopathy Respiratory/Lung Sounds: Positive: Wheezes - Bilaterally Cardiovascular: Positive: Pulses are Symmetrical in both Upper and Lower Extremities Musculoskeletal: Positive: Strength/ROM Intact Neurological: Positive: Alert, Oriented to Person Place, Time, Speech Normal Psychiatric: Positive: Normal, Affect/Mood Appropriate AVPU Assessment: Alert - [place] Coma Scale Best Eye Response: 4 - Spontaneous Best Motor Response: 6 - Obeys Commands Best Verbal Response: 5 - Oriented Coma Scale Total: 15 Diagnostics - Vital Signs Vital Signs Temp Pulse Resp BP Pulse Ox 05/22/18 12:14 60 22 141/86 91 05/22/18 12:00 61 22 94 05/22/18 11:44 56 20 112/79 95 05/22/18 11:14 57 21 117/81 95 05/22/18 11:00 59 23 95 05/22/18 10:52 60 22 138/87 100 05/22/18 10:14 61 19 129/87 95 05/22/18 10:07 18 05/22/18 10:00 65 20 87 05/22/18 09:55 66 14 143/75 89 05/22/18 09:44 17 119/83 05/22/18 09:14 56 14 129/89 93 05/22/18 09:00 59 21 93 05/22/18 08:44 60 15 154/86 94 05/22/18 08:14 63 20 146/96 96 05/22/18 08:05 21 05/22/18 07:54 97.4 F 68 16 142/79 84 - Laboratory Lab Results: Lab Results 05/22/18 05/22/18 05/22/18 Range/Units 08:14 08:14 08:14 WBC 9.6 (3.5-10.8) 10^3/ul RBC 4.38 (4.00-5.40) 10^6/ul Hgb 14.4 (12.0-16.0) g/dl Hct 43 (35-47) % MCV 98 H (80-97) fL MCH 33 H (27-31) pg MCHC 33 (31-36) g/dl RDW 15 (10.5-15) % Plt Count 308 (150-450) 10^3/ul MPV 8.8 (7.4-10.4) um3 Neut % (Auto) 69.7 (38-83) % Lymph % (Auto) 21.8 L (25-47) % [place] % (Auto) 5.7 (0-7) % Eos % (Auto) 1.8 (0-6) % Baso % (Auto) 1.0 (0-2) % Absolute Neuts (auto) 6.7 (1.5-7.7) 10^3/ul Absolute Lymphs (auto) 2.1 (1.0-4.8) 10^3/ul Absolute Monos (auto) 0.5 (0-0.8) 10^3/ul Absolute Eos (auto) 0.2 (0-0.6) 10^3/ul Absolute Basos (auto) 0.1 (0-0.2) 10^3/ul Absolute Nucleated RBC 0 10^3/ul Nucleated RBC % 0 Sodium 140 (135-145) mmol/L Potassium 3.8 (3.5-5.0) mmol/L Chloride 101 (101-111) mmol/L Carbon Dioxide 33 H (22-32) mmol/L Anion Gap 6 (2-11) mmol/L BUN 17 (6-24) mg/dL Creatinine 1.21 H (0.51-0.95) mg/dL Est GFR ( Amer) 53.9 (>60) Est GFR (Non-Af Amer) 44.5 (>60) BUN/Creatinine Ratio 14.0 (8-20) Glucose 162 H (70-100) mg/dL Lactic Acid 1.4 (0.5-2.0) mmol/L Calcium 9.5 (8.6-10.3) mg/dL Total Bilirubin 0.40 (0.2-1.0) mg/dL AST 36 (13-39) U/L ALT 23 (7-52) U/L Alkaline Phosphatase 82 (34-104) U/L C-Reactive Protein 3.24 (<8.01) mg/L Total Protein 7.3 (6.4-8.9) g/dL Albumin 4.4 (3.2-5.2) g/dL Globulin 2.9 (2-4) g/dL Albumin/Globulin Ratio 1.5 (1-3) Urine Color Urine Appearance Urine pH (5-9) Ur Specific [place] (1.010-1.030) Urine Protein (Negative) Urine Ketones (Negative) Urine Blood (Negative) Urine Nitrate (Negative) Urine Bilirubin (Negative) Urine Urobilinogen (Negative) Ur Leukocyte Esterase (Negative) Urine WBC (Auto) (Absent) Urine RBC (Auto) (Absent) Ur Squamous Epith Cells (Absent) Urine Bacteria (Absent) Hyaline Casts (Absent) Urine Glucose (Negative) Influenza A (Rapid) (Negative) Influenza B (Rapid) (Negative) 05/22/18 05/22/18 Range/Units 08:27 10:13 WBC (3.5-10.8) 10^3/ul RBC (4.00-5.40) 10^6/ul Hgb (12.0-16.0) g/dl Hct (35-47) % MCV (80-97) fL MCH (27-31) pg MCHC (31-36) g/dl RDW (10.5-15) % Plt Count (150-450) 10^3/ul MPV (7.4-10.4) um3 Neut % (Auto) (38-83) % Lymph % (Auto) (25-47) % [place] % (Auto) (0-7) % Eos % (Auto) (0-6) % Baso % (Auto) (0-2) % Absolute Neuts (auto) (1.5-7.7) 10^3/ul Absolute Lymphs (auto) (1.0-4.8) 10^3/ul Absolute Monos (auto) (0-0.8) 10^3/ul Absolute Eos (auto) (0-0.6) 10^3/ul Absolute Basos (auto) (0-0.2) 10^3/ul Absolute Nucleated RBC 10^3/ul Nucleated RBC % Sodium (135-145) mmol/L Potassium (3.5-5.0) mmol/L Chloride (101-111) mmol/L Carbon Dioxide (22-32) mmol/L Anion Gap (2-11) mmol/L BUN (6-24) mg/dL Creatinine (0.51-0.95) mg/dL Est GFR ( Amer) (>60) Est GFR (Non-Af Amer) (>60) BUN/Creatinine Ratio (8-20) Glucose (70-100) mg/dL Lactic Acid (0.5-2.0) mmol/L Calcium (8.6-10.3) mg/dL Total Bilirubin (0.2-1.0) mg/dL AST (13-39) U/L ALT (7-52) U/L Alkaline Phosphatase (34-104) U/L C-Reactive Protein (<8.01) mg/L Total Protein (6.4-8.9) g/dL Albumin (3.2-5.2) g/dL Globulin (2-4) g/dL Albumin/Globulin Ratio (1-3) Urine Color Yellow Urine Appearance Cloudy Urine pH 5.0 (5-9) Ur Specific [place] 1.019 (1.010-1.030) Urine Protein Negative (Negative) Urine Ketones Negative (Negative) Urine Blood Negative (Negative) Urine Nitrate Negative (Negative) Urine Bilirubin Negative (Negative) Urine Urobilinogen Negative (Negative) Ur Leukocyte Esterase 2+ A (Negative) Urine WBC (Auto) 3+(>20/hpf) A (Absent) Urine RBC (Auto) 1+(3-5/hpf) A (Absent) Ur Squamous Epith Cells Present A (Absent) Urine Bacteria Absent (Absent) Hyaline Casts Present A (Absent) Urine Glucose Negative (Negative) Influenza A (Rapid) Negative (Negative) Influenza B (Rapid) Negative (Negative) Result Diagrams: 05/22/18 08:14 05/23/18 06:13 Lab Statement: Any lab studies that have been ordered have been reviewed, and results considered in the medical decision making process. Dizzy Course/Dx - Course Course Of Treatment: During the course treatment, the patient is evaluated for dizziness. She is given meclizine on arrival, labs obtained and fluids are given. UA obtained which is unremarkable and EKG shows a sinus bradycardia. Due to her dizziness is CT brain was obtained which shows no acute intracranial pathology. On arrival her oxygen saturation is 84% on room air and she is immediately placed on 3 L elevating her oxygen saturation to the mid 90s. She states she is not on oxygen at home and has not been complaining of soreness of breath. This could be new and at her baseline, however to assess for other shortness of breath and etiologies, CTA of the chest was completed which shows no evidence of pulmonary embolism. She continues to report dizziness despite the meclizine, so was given Ativan 1 mg IV. Patient did report some noise in her right ear prior to arrival, however this has dissipated. Influenza swabs obtained which are negative. Discussed case with hospitalist who agrees to admit. Will call for an ABG due to hypoxia and possibly further a neuro consult for continuing dizziness. - Diagnoses Differential Diagnosis/HQI/PQRI: Other - Dizziness Provider Diagnoses: Dizziness - Provider Notifications Discussed Care Of Patient With: Malro Thomas Discharge - Sign-Out/Discharge Documenting (check all that apply): Patient Departure - Discharge Plan Condition: Fair Disposition: ADMITTED TO [facility] - Billing Disposition and Condition Condition: FAIR Disposition: Admitted to [facility]
[2018-05-24] MEDS: Levothyroxine TAB* 50 MCG TAB PO SCH (08:27)
[2018-05-24] MEDS: Apixaban* 5 MG TAB PO SCH ×2 (08:27→21:40)
--- NOTE | 2018-05-24 16:50 | PN ---
Subjective Date of Service: 05/24/18 Interval History: continues to c/o dizziness improving. patient continue to by hypoxic on RA with o2 saturation decreasing to 84%. denies chest pain or shortness of breath. Denies BRADSHAW or visual changes. Denies abd pain n/v/d. Family History: Unchanged from Admission Social History: Unchanged from Admission Past Medical History: Unchanged from Admission Objective Active Medications: Apixaban (Eliquis*) 5 mg PO BID [facility] Last Admin: 05/24/18 08:27 Dose: 5 mg Diazepam (Valium Tab(*)) 5 mg PO Q8H PRN PRN Reason: vertigo Stop: 05/24/18 18:00 Last Admin: 05/23/18 11:15 Dose: 5 mg Levothyroxine Sodium (Synthroid Tab*) 250 mcg PO 0800 [facility] Last Admin: 05/24/18 08:27 Dose: 250 mcg Meclizine HCl (Antivert Tab*) 25 mg PO Q8HR PRN PRN Reason: DIZZINESS Last Admin: 05/23/18 07:51 Dose: 25 mg Vital Signs - 8 hr 05/24/18 05/24/18 05/24/18 10:46 11:38 15:53 Temperature 97.7 F 98.2 F Pulse Rate 68 72 Respiratory 18 18 Rate Blood Pressure 113/70 133/76 (mmHg) O2 Sat by Pulse 84 91 92 Oximetry Oxygen Devices in Use Now: Nasal Cannula Appearance: appears comfortable resting in bed. no acute distress Eyes: No Scleral Icterus Ears/Nose/Mouth/Throat: Clear Oropharnyx, Mucous Membranes Moist Neck: NL Appearance and Movements; NL JVP, Trachea Midline Respiratory: Symmetrical Chest Expansion and Respiratory Effort, Clear to Auscultation Cardiovascular: NL Sounds; No Murmurs; No JVD, No Edema Abdominal: NL Sounds; No Tenderness; No Distention Lymphatic: No Cervical Adenopathy Extremities: No Edema, No Clubbing, Cyanosis Skin: No Rash or Ulcers Neurological: Alert and Oriented x 3, - - nystagmus noted with left and right lateral gazes Nutrition: Taking PO's Result Diagrams: 05/22/18 08:14 05/23/18 06:13 Additional Lab and Data: Lab Results 05/22/18 05/22/18 05/22/18 Range/Units 08:14 08:14 08:14 WBC 9.6 (3.5-10.8) 10^3/ul RBC 4.38 (4.00-5.40) 10^6/ul Hgb 14.4 (12.0-16.0) g/dl Hct 43 (35-47) % MCV 98 H (80-97) fL MCH 33 H (27-31) pg MCHC 33 (31-36) g/dl RDW 15 (10.5-15) % Plt Count 308 (150-450) 10^3/ul MPV 8.8 (7.4-10.4) um3 Neut % (Auto) 69.7 (38-83) % Lymph % (Auto) 21.8 L (25-47) % Blount % (Auto) 5.7 (0-7) % Eos % (Auto) 1.8 (0-6) % Baso % (Auto) 1.0 (0-2) % Absolute Neuts (auto) 6.7 (1.5-7.7) 10^3/ul Absolute Lymphs (auto) 2.1 (1.0-4.8) 10^3/ul Absolute Monos (auto) 0.5 (0-0.8) 10^3/ul Absolute Eos (auto) 0.2 (0-0.6) 10^3/ul Absolute Basos (auto) 0.1 (0-0.2) 10^3/ul Absolute Nucleated RBC 0 10^3/ul Nucleated RBC % 0 Sodium 140 (135-145) mmol/L Potassium 3.8 (3.5-5.0) mmol/L Chloride 101 (101-111) mmol/L Carbon Dioxide 33 H (22-32) mmol/L Anion Gap 6 (2-11) mmol/L BUN 17 (6-24) mg/dL Creatinine 1.21 H (0.51-0.95) mg/dL Est GFR ( Amer) 53.9 (>60) Est GFR (Non-Af Amer) 44.5 (>60) BUN/Creatinine Ratio 14.0 (8-20) Glucose 162 H (70-100) mg/dL Lactic Acid 1.4 (0.5-2.0) mmol/L Calcium 9.5 (8.6-10.3) mg/dL Total Bilirubin 0.40 (0.2-1.0) mg/dL AST 36 (13-39) U/L ALT 23 (7-52) U/L Alkaline Phosphatase 82 (34-104) U/L C-Reactive Protein 3.24 (<8.01) mg/L Total Protein 7.3 (6.4-8.9) g/dL Albumin 4.4 (3.2-5.2) g/dL Globulin 2.9 (2-4) g/dL Albumin/Globulin Ratio 1.5 (1-3) Urine Color Urine Appearance Urine pH (5-9) Ur Specific Canon (1.010-1.030) Urine Protein (Negative) Urine Ketones (Negative) Urine Blood (Negative) Urine Nitrate (Negative) Urine Bilirubin (Negative) Urine Urobilinogen (Negative) Ur Leukocyte Esterase (Negative) Urine WBC (Auto) (Absent) Urine RBC (Auto) (Absent) Ur Squamous Epith Cells (Absent) Urine Bacteria (Absent) Hyaline Casts (Absent) Urine Glucose (Negative) Influenza A (Rapid) (Negative) Influenza B (Rapid) (Negative) 05/22/18 05/22/18 Range/Units 08:27 10:13 WBC (3.5-10.8) 10^3/ul RBC (4.00-5.40) 10^6/ul Hgb (12.0-16.0) g/dl Hct (35-47) % MCV (80-97) fL MCH (27-31) pg MCHC (31-36) g/dl RDW (10.5-15) % Plt Count (150-450) 10^3/ul MPV (7.4-10.4) um3 Neut % (Auto) (38-83) % Lymph % (Auto) (25-47) % Blount % (Auto) (0-7) % Eos % (Auto) (0-6) % Baso % (Auto) (0-2) % Absolute Neuts (auto) (1.5-7.7) 10^3/ul Absolute Lymphs (auto) (1.0-4.8) 10^3/ul Absolute Monos (auto) (0-0.8) 10^3/ul Absolute Eos (auto) (0-0.6) 10^3/ul Absolute Basos (auto) (0-0.2) 10^3/ul Absolute Nucleated RBC 10^3/ul Nucleated RBC % Sodium (135-145) mmol/L Potassium (3.5-5.0) mmol/L Chloride (101-111) mmol/L Carbon Dioxide (22-32) mmol/L Anion Gap (2-11) mmol/L BUN (6-24) mg/dL Creatinine (0.51-0.95) mg/dL Est GFR ( Amer) (>60) Est GFR (Non-Af Amer) (>60) BUN/Creatinine Ratio (8-20) Glucose (70-100) mg/dL Lactic Acid (0.5-2.0) mmol/L Calcium (8.6-10.3) mg/dL Total Bilirubin (0.2-1.0) mg/dL AST (13-39) U/L ALT (7-52) U/L Alkaline Phosphatase (34-104) U/L C-Reactive Protein (<8.01) mg/L Total Protein (6.4-8.9) g/dL Albumin (3.2-5.2) g/dL Globulin (2-4) g/dL Albumin/Globulin Ratio (1-3) Urine Color Yellow Urine Appearance Cloudy Urine pH 5.0 (5-9) Ur Specific Canon 1.019 (1.010-1.030) Urine Protein Negative (Negative) Urine Ketones Negative (Negative) Urine Blood Negative (Negative) Urine Nitrate Negative (Negative) Urine Bilirubin Negative (Negative) Urine Urobilinogen Negative (Negative) Ur Leukocyte Esterase 2+ A (Negative) Urine WBC (Auto) 3+(>20/hpf) A (Absent) Urine RBC (Auto) 1+(3-5/hpf) A (Absent) Ur Squamous Epith Cells Present A (Absent) Urine Bacteria Absent (Absent) Hyaline Casts Present A (Absent) Urine Glucose Negative (Negative) Influenza A (Rapid) Negative (Negative) Influenza B (Rapid) Negative (Negative) Microbiology and Other Data: Microbiology 05/22/18 10:13 Urine Culture - Final Urine 05/22/18 08:16 Influenza Types A,B Antigen - Final Nasal Specimen received for Influenza A/B Molecular testing Diagnostic Imaging: Patient Name: NIDHI QUEVEDO Medical Record#: [id number] Ordering Physician: Stephanie Paiz MD Acct.#: [id number] : 1950 Age: 67 Sex: F Location: 4 [facility]TELE[facility] Exam Date: 05/23/18 1041 ADM Status: ADM Seema Order Information: VL CAROTID BILATERAL Accession Number: [id number] CPT: 39325 INDICATION: Vertigo. COMPARISON: No relevant prior exams available on the [facility] PACS for comparison. TECHNIQUE: Bilateral carotid duplex scan. Stenosis estimations reflect velocity criteria that have been correlated to angiographic stenosis calculations based on distal internal carotid diameter. REPORT: RIGHT ICA: 44 cm/s peak systolic 20 cm/s end diastolic CCA: 62 cm/s peak systolic ICA/CCA peak systolic ratio: 0.71 The right common carotid artery and internal carotid artery are without evidence for significant atherosclerotic disease. Tortuous RIGHT internal carotid artery. Normal spectral wave forms are present throughout. Antegrade flow in the right vertebral artery. LEFT ICA: 50 cm/s peak systolic 24 cm/s end diastolic CCA: 51 cm/s peak systolic ICA/CCA peak systolic ratio: 1.1 Minimal predominant calcific plaque at the LEFT carotid bulb and proximal internal carotid artery. Normal spectral wave forms are present throughout. Antegrade flow in the left vertebral artery. IMPRESSION: #. Minimal atherosclerotic plaque at the LEFT carotid bifurcation without appreciable internal carotid artery stenosis resulting based on NASCET criteria. #. Negative for atherosclerotic disease at the RIGHT carotid artery. CPT II Codes: 3100F Patient Name: NIDHI QUEVEDO Medical Record#: [id number] Ordering Physician: Stephanie Paiz MD Acct.#: [id number] : 1950 Age: 67 Sex: F Location: 4 [facility] Exam Date: 05/23/18 1003 ADM Status: ADM Seema Order Information: MRI BRAIN W/O Accession Number: [id number] CPT: 05055 HISTORY: Dizziness, suspect left cerebellar stroke COMPARISONS: May 22, 2018 TECHNIQUE: The following sequences were obtained of the head: Sagittal T1- weighted images, axial T2-weighted images, axial FLAIR images, axial susceptibility weighted images, axial T1-weighted images. Additionally, axial diffusion-weighted images were obtained with calculated apparent diffusion coefficients. FINDINGS: HEMORRHAGE/INFARCT: There is no hemorrhage or acute infarct. MASSES/SHIFT: There is no mass or shift. EXTRA-AXIAL SPACES/MENINGES: There are no extra-axial fluid collections. SULCI AND VENTRICLES: The sulci and ventricles are normal in size and position for the patient's stated age. CEREBRUM: There are multiple scattered small foci of elevated T2/FLAIR signal within the periventricular and subcortical white matter. BRAINSTEM: There are no focal parenchymal abnormalities. CEREBELLUM: There are no focal parenchymal abnormalities. On axial images, left inferior cerebellum appears mildly dysplastic, though this is felt to represent volume averaging through a mildly prominent left cerebellar fissure. The cerebellar tonsils are normal in size and position. SELLA: The sella is normal. PINEAL: The pineal region is clear. CP ANGLE/TEMPORAL BONES: The labyrinthine structures are grossly normal. VESSELS: Normal flow-voids are noted within the visualized vertebral vasculature. DIFFUSION ABNORMALITIES: There are no diffusion abnormalities. PARANASAL SINUSES/MASTOIDS: The paranasal sinuses are clear. There are small bilateral mastoid effusions. ORBITS: The orbits are unremarkable. BONES AND SOFT TISSUE: No bone or soft tissue abnormalities are noted. OTHER: None IMPRESSION: 1. STABLE SCATTERED NONSPECIFIC WHITE MATTER CHANGES. 2. NO RESTRICTED DIFFUSION TO SUGGEST ACUTE INFARCT. <Electronically signed by Jason Gardner MD in OV> 05/23/18 130 Dictated By: Jason Gardner MD Dictated Date/Time: 05/23/181306 Transcribed Date/Time: 05/23/18 130 This report is only to be considered final once signed by the Provider(s) as displayed in the "<Electronically Signed by >" field (s). Absence of a signature indicates the report is in a draft status and still needs to be finalized. In the event this document was created by someone other than the signing Provider, the individual initiating the document will be listed in the "Entered by:" or "Dictated by:" reyez. 1 of 2 Patient Name: NIDHI QUEVEDO Medical Record#: [id number] Ordering Physician: Na JHAVERI Acct.#: [id number] : 1950 Age: 67 Sex: F Location: EMERGENCY DEPARTMENT Exam Date: 05/22/18 0951 ADM Status: REG ER Order Information: CTA CHEST Accession Number: [id number] CPT: 51042 HISTORY: CA hx/ SOB/ diaphoretic COMPARISONS: PET/CT dated May 31, 2017 TECHNIQUE: Multiple contiguous axial CT scans of the chest were obtained after the administration of nonionic intravenous contrast, timed to the pulmonary arterial phase of contrast enhancement.. Coronal and sagittal multiplanar reformations are also submitted for review. FINDINGS: NECK AND THYROID: The lower neck and thyroid are unremarkable. CHEST WALL: There is no lower cervical, axillary, or supraclavicular lymphadenopathy by size criteria. HEART AND PERICARDIUM: The heart is unremarkable. AORTA AND PULMONARY VASCULATURE: There is no pulmonary arterial filling defect to suggest pulmonary embolism. The aorta is not well evaluated secondary to technique and phase of contrast demonstration. There is mild calcific atherosclerosis disease. The aorta is otherwise grossly normal.. MEDIASTINUM: There is no mediastinal lymphadenopathy by size criteria. DONNA: There is no hilar lymphadenopathy by size criteria. AIRWAY AND ESOPHAGUS: The airway is unremarkable, without endobronchial filling defect. The esophagus is grossly normal. LUNG PARENCHYMA: The lungs are clear. PLEURA: No pleural abnormalities are noted. UPPER ABDOMEN: The upper abdomen is unremarkable. BONES AND SOFT TISSUES: No bone or soft tissue abnormalities are noted. OTHER: None. IMPRESSION: NO PULMONARY ARTERIAL FILLING DEFECT TO SUGGEST PULMONARY EMBOLISM. <Electronically signed by Jason Gardner MD in OV> 05/22/18 110 Dictated By: Jason Gardner MD Dictated Date/Time: 05/22/18 110 Transcribed Date/Time: 05/22/181101 Copy to: Assess/Plan/Problems-Billing Assessment: This is a 67 year old female with history of low grade lymphoma and tobacco abuse, that presented to the ER with complaint of persistent, intractable dizziness, hypoxia, and vomiting. - Patient Problems (1) Dizziness Current Visit: Yes Status: Acute Code(s): R42 - DIZZINESS AND GIDDINESS SNOMED Code(s): 872788167 Comment: - BPPV - Confounding with episode of afib overnight - MRI, MRA, US carotids as above - Neurology consult appreciated, Eppley Maneuvers applied by Dr. Paiz- reports dizziness is improving- continues to have, gait imbalance with walking. - ECHO with negative bubble study - Continue meclizine and valium PRN with anti-emetics - PT/OT - Optimize lipids, will start high dose statin and AC (2) PAF (paroxysmal atrial fibrillation) Current Visit: Yes Status: Acute Code(s): I48.0 - PAROXYSMAL ATRIAL FIBRILLATION SNOMED Code(s): 160162419 Comment: - Noted on tele overnight, not captured on EKG - May be having small embolic events given MRI findings (nothing new or acute though) which may be contributing to current symptoms - Discussed anticoagulation with neurology, does not appear to need rate control, will start eliquis - currently in SR on the monitor (3) Hypothyroid Current Visit: Yes Status: Acute Code(s): E03.9 - HYPOTHYROIDISM, UNSPECIFIED SNOMED Code(s): 28160976 Comment: TSH 77 - will continue levothyroxine at 250mcg - as patient reports that she does not take her levothyroxine on a daily basis and offen forget to take her medications - will need TSH rechecked in 4 to 6 weeks (4) History of lymphoma Current Visit: Yes Status: Acute Code(s): Z85.79 - PRSNL HX OF MALIG NEOPLM OF LYMPHOID, HEMATPOETC & REL TISS SNOMED Code(s): 208892833 Comment: - Stable (5) Hypoxia Current Visit: Yes Status: Acute Code(s): R09.02 - HYPOXEMIA SNOMED Code(s ): 700993304 Comment: - Etiology unclear, may be underlaying COPD - CTA chest negative for PE - attempted to wean O2 but o2 dropped to 84% on RA, recovered with 2 liters NC to 94%., will need oxygen for home (6) DVT prophylaxis Current Visit: Yes Status: Acute Code(s): ZAO1003 - SNOMED Code(s): 828539232 Comment: Ryan (7) Full code status Current Visit: Yes Status: Acute Code(s): Z78.9 - OTHER SPECIFIED HEALTH STATUS SNOMED Code(s): 092823064 Status and Disposition: Remain inpatient. DC to home when medically stable.
[2018-05-25] MEDS: Apixaban* 5 MG TAB PO SCH (07:51)
[2018-05-25] MEDS: Levothyroxine TAB* 50 MCG TAB PO SCH (07:51)
--- NOTE | 2018-05-25 11:16 | CONSULT ---
Subjective Date of Service: 05/25/18 Interval History: Admission Date: 05/22/18 Consult date 05/24/2018 Service: Hospitalist PMMohini Loredo MD CHIEF COMPLAINT: Dizziness and vomiting Reason for consult: Abnormal telemetry strips HISTORY OF PRESENT ILLNESS: Ms. Sarmiento is a 67 year old woman admitted with right ear hearing changes, positional dizziness and room spinning and vomiting. She has been diagnosed with vertigo. She is improving but still remains with symptoms. She was found with telemetry abnormalities. There were PVC's with compensatory pauses, wenkebach physiology heart block and brief arrhythmias. There was no atrial fibrillation, flutter, prolonged pauses or high degree heart block. Patient has had generalized fatigue since December. She denies any CP, sustained palpitations or syncope (had one episode as a child). She described more of fatigue than dyspnea. She was found with 02 requirements and an elevated bicarbonate suggestive of chronic respiratory failure likely related to undiagnosed smoking related COPD. Daughter is at bedside who pateint lives with. PAST MEDICAL HISTORY: 1. Hypothyroidism s/p subtotal thyroidectomy, non-adherent with synthroid 2. Non-Hodgkin's lymphoma. PAST SURGICAL HISTORY: 1. Status post right inguinal hernia repair as a child. 2. Status post tubal ligation. MEDICATIONS: Home medications include levothyroxine 250 mcg oral daily (non- adherent) ALLERGIES: No known drug allergies. FAMILY HISTORY: The patient's mother with a history of an ID. Sister with heart disease. Mother with type 2 diabetes mellitus. Her mother has a history of blood cancer, she is unsure the name of it. Additionally, she had a brother with metastatic cancer with unknown cause. SOCIAL HISTORY: She smokes a half a pack a day. She smoked for the last 54 years. She occasionally drinks alcohol. Denies recreational drug use. Her daughter, Celeste Sarmiento, will be her surrogate decision maker in the event she is unable to make decisions for herself. Medications Active Medications: Apixaban (Eliquis*) 5 mg PO BID [facility] Last Admin: 05/25/18 07:51 Dose: 5 mg Meclizine HCl (Antivert Tab*) 25 mg PO Q8HR PRN PRN Reason: DIZZINESS Last Admin: 05/23/18 07:51 Dose: 25 mg Home Medications: Levothyroxine TAB* [Synthroid 100 MCG TAB*] 250 mcg PO 0800 01/05/15 [History Confirmed 05/22/18] Review of Systems - Measurements Intake and Output: Intake and Output Last 24 Hours 05/23/18 05/24/18 05/25/18 05/26/18 06:59 06:59 06:59 06:59 Intake Total 3140 365 600 Output Total 0 700 0 Balance 3140 -335 600 Weight 200 lb 200 lb Intake: IV Fluids 2990 Oral 150 365 600 Output: Urine 0 700 0 Other: Estimated Void Large Medium # Bowel Movements 0 0 # Voids 0 2 0 - Review of Systems Constitutional Symptoms: Positive: Weakness, Fatigue Negative: Weight Loss, Fever, Night Sweats Dermatology: Negative: Rash, Skin Lesions HEENT: Negative: Change in Hearing, Vertigo Eyes: Negative: Change in Vision, Double Vision Thyroid: Negative: Constipation, Weight Loss, Weight Gain Pulmonary: Positive: Cough, Shortness of Breath, Exercise Intolerance Negative: Hemoptysis, COPD, Asthma Cardiology: Positive: Shortness of Breath Negative: Chest Pain, Palpitations, Swelling of Ankles, Peripheral Vascular Dis, Edema, Faintness, Syncope, Claudication, Paroxysmal Nocturnal Dyspnea, Orthopnea Gastroenterology: Negative: Abdominal Pain, Nausea, Vomiting, Anorexia Genital - Urinary: Negative: Dysuria, Hematuria Musculoskeletal: Negative: Joint Pain, Joint Stiffness, Arthritis Endocrinology: Negative: Adrenal Problems, Gonadal Problems, Calluses, Hirsutism, Polydipsia , Polyuria, Pituitary Disease Hematologic/Lymphatic: Negative: Use of Anticoagulant, Use of Antiplatelet Drugs Neurology: Negative: Change in Speech, Change in Sphincter Function, Change in Walking, Numbness\Paresthesiae, Hx of Stroke\TIA Psychiatry: Negative: Unusual Anxiety, Suicidal Ideation Allergic/Immunologic: Negative: Hx Anaphylaxis, Hx Angioedema, Hx HIV, Immunocompromise Review of Systems Statement: All other review of systems negative, unless stated above. Objective Vital Signs: Temp Pulse Resp BP Pulse Ox 98.1 F 72 16 132/70 98 05/25/18 07:22 05/25/18 07:22 05/25/18 08:00 05/25/18 07:22 05/25/18 07:22 Oxygen Devices in Use Now: Nasal Cannula Appearance: nad, pleasant Ears/Nose/Mouth/Throat: Clear Oropharnyx, Mucous Membranes Moist Neck: NL Appearance and Movements; NL JVP, - - thyroidectomy scar Respiratory: Symmetrical Chest Expansion and Respiratory Effort, Clear to Auscultation Cardiovascular: NL Sounds; No Murmurs; No JVD, RRR, No Edema Abdominal: NL Sounds; No Tenderness; No Distention Extremities: No Edema Skin: No Rash or Ulcers Neurological: Alert and Oriented x 3 Laboratory Results: 05/22/18 08:14 05/23/18 06:13 Total Bilirubin 0.40 mg/dL (0.2-1.0) 05/22/18 08:14 AST 36 U/L (13-39) 05/22/18 08:14 ALT 23 U/L (7-52) 05/22/18 08:14 Alkaline Phosphatase 82 U/L (34-104) 05/22/18 08:14 Total Protein 7.3 g/dL (6.4-8.9) 05/22/18 08:14 Albumin 4.4 g/dL (3.2-5.2) 05/22/18 08:14 Globulin 2.9 g/dL (2-4) 05/22/18 08:14 Albumin/Globulin Ratio 1.5 (1-3) 05/22/18 08:14 Triglycerides 473 mg/dL 05/23/18 06:13 Cholesterol 428 mg/dL 05/23/18 06:13 LDL Cholesterol Senior Account Director 05/23/18 06:13 HDL Cholesterol 42.8 mg/dL 05/23/18 06:13 TSH 77.33 mcIU/mL (0.34-5.60) H 05/23/18 06:13 direct ldl 256 Diagnostic Imaging: Brain CT admission. Radiologist's impression: No acute intracranial pathology. Chest CTA admission. Radiologist's impression: No pulmonary arterial filling defect to suggest pulmonary embolus. Brain MRI 05/23/2018: scattered non-specific white matter changes, no acute infarct echo 05/23/2018: mild LVH, normal LVEF, LA size, and no significant valvular abnormalities noted EKG Data: ekg 11/2010: NSR, LAFB with PRWP EKG on admission: Unchanged from 11/2010 Other ekgs since admsission showing pvc's Assessment/Plan 67 year old woman admitted with vertigo and cardiology consulted due to abnormal telemetry monitoring as described in HPI. - Some of her telemetry abnormalities may be related to her severe hypothyroidism which needs corrected - Would start intensive dose atorvastatin 80 mg po daily given her severe dyslipidemia and correction of thyroid abnormalities should also be of benefit with this regard. This will need rechecked through her PMD's office. We also discussed a heart healthy diet. - I think primary prevention aspirin in this high risk patient is reasonable and would start aspirin 81 mg po daily - There is no cardiac indication for a pacemaker or anticoagulation. Eliquis can be discontinued from a cardiac standpoint - Patient needs additional risk factor modification including but not limited to smoking cessation and she expressed understanding of risks of medication non- adherence and continued smoking including but not limited to stroke, heart attack and Thank you for allowing me to participate in the cardiovascular care of this patient. Please do not hesitate to contact me with questions or concerns
[2018-05-25 11:29] VITALS: BP 152/69
--- NOTE | 2018-05-25 17:45 | PN ---
Subjective Date of Service: 05/25/18 Interval History: patient reports she continues to feel off balance, with change in position. patient continues to need oxygen for maintain saturations above 90%. Denies chest pain or shortness of breath, denies abd pain n/v/d. denies headache Family History: Unchanged from Admission Social History: Unchanged from Admission Past Medical History: Unchanged from Admission Objective Active Medications: Apixaban (Eliquis*) 5 mg PO BID GURJIT Last Admin: 05/25/18 07:51 Dose: 5 mg Meclizine HCl (Antivert Tab*) 25 mg PO Q8HR PRN PRN Reason: DIZZINESS Last Admin: 05/23/18 07:51 Dose: 25 mg Vital Signs - 8 hr 05/25/18 11:27 Temperature 98.2 F Pulse Rate 71 Respiratory 20 Rate Blood Pressure 152/69 (mmHg) O2 Sat by Pulse 96 Oximetry Oxygen Devices in Use Now: Nasal Cannula Appearance: appears comfortable resting in bed, no acute distress Eyes: No Scleral Icterus Ears/Nose/Mouth/Throat: Clear Oropharnyx, Mucous Membranes Moist, - - lateral nystagmus noted Neck: NL Appearance and Movements; NL JVP, Trachea Midline Respiratory: Symmetrical Chest Expansion and Respiratory Effort, Clear to Auscultation Cardiovascular: NL Sounds; No Murmurs; No JVD, No Edema Abdominal: NL Sounds; No Tenderness; No Distention Extremities: No Edema, No Clubbing, Cyanosis Skin: No Rash or Ulcers Neurological: Alert and Oriented x 3 Nutrition: Taking PO's Result Diagrams: 05/22/18 08:14 05/23/18 06:13 Additional Lab and Data: Lab Results 05/22/18 05/22/18 05/22/18 Range/Units 08:14 08:14 08:14 WBC 9.6 (3.5-10.8) 10^3/ul RBC 4.38 (4.00-5.40) 10^6/ul Hgb 14.4 (12.0-16.0) g/dl Hct 43 (35-47) % MCV 98 H (80-97) fL MCH 33 H (27-31) pg MCHC 33 (31-36) g/dl RDW 15 (10.5-15) % Plt Count 308 (150-450) 10^3/ul MPV 8.8 (7.4-10.4) um3 Neut % (Auto) 69.7 (38-83) % Lymph % (Auto) 21.8 L (25-47) % Chambers % (Auto) 5.7 (0-7) % Eos % (Auto) 1.8 (0-6) % Baso % (Auto) 1.0 (0-2) % Absolute Neuts (auto) 6.7 (1.5-7.7) 10^3/ul Absolute Lymphs (auto) 2.1 (1.0-4.8) 10^3/ul Absolute Monos (auto) 0.5 (0-0.8) 10^3/ul Absolute Eos (auto) 0.2 (0-0.6) 10^3/ul Absolute Basos (auto) 0.1 (0-0.2) 10^3/ul Absolute Nucleated RBC 0 10^3/ul Nucleated RBC % 0 Sodium 140 (135-145) mmol/L Potassium 3.8 (3.5-5.0) mmol/L Chloride 101 (101-111) mmol/L Carbon Dioxide 33 H (22-32) mmol/L Anion Gap 6 (2-11) mmol/L BUN 17 (6-24) mg/dL Creatinine 1.21 H (0.51-0.95) mg/dL Est GFR ( Amer) 53.9 (>60) Est GFR (Non-Af Amer) 44.5 (>60) BUN/Creatinine Ratio 14.0 (8-20) Glucose 162 H (70-100) mg/dL Lactic Acid 1.4 (0.5-2.0) mmol/L Calcium 9.5 (8.6-10.3) mg/dL Total Bilirubin 0.40 (0.2-1.0) mg/dL AST 36 (13-39) U/L ALT 23 (7-52) U/L Alkaline Phosphatase 82 (34-104) U/L C-Reactive Protein 3.24 (<8.01) mg/L Total Protein 7.3 (6.4-8.9) g/dL Albumin 4.4 (3.2-5.2) g/dL Globulin 2.9 (2-4) g/dL Albumin/Globulin Ratio 1.5 (1-3) Urine Color Urine Appearance Urine pH (5-9) Ur Specific [place] (1.010-1.030) Urine Protein (Negative) Urine Ketones (Negative) Urine Blood (Negative) Urine Nitrate (Negative) Urine Bilirubin (Negative) Urine Urobilinogen (Negative) Ur Leukocyte Esterase (Negative) Urine WBC (Auto) (Absent) Urine RBC (Auto) (Absent) Ur Squamous Epith Cells (Absent) Urine Bacteria (Absent) Hyaline Casts (Absent) Urine Glucose (Negative) Influenza A (Rapid) (Negative) Influenza B (Rapid) (Negative) 05/22/18 05/22/18 Range/Units 08:27 10:13 WBC (3.5-10.8) 10^3/ul RBC (4.00-5.40) 10^6/ul Hgb (12.0-16.0) g/dl Hct (35-47) % MCV (80-97) fL MCH (27-31) pg MCHC (31-36) g/dl RDW (10.5-15) % Plt Count (150-450) 10^3/ul MPV (7.4-10.4) um3 Neut % (Auto) (38-83) % Lymph % (Auto) (25-47) % Chambers % (Auto) (0-7) % Eos % (Auto) (0-6) % Baso % (Auto) (0-2) % Absolute Neuts (auto) (1.5-7.7) 10^3/ul Absolute Lymphs (auto) (1.0-4.8) 10^3/ul Absolute Monos (auto) (0-0.8) 10^3/ul Absolute Eos (auto) (0-0.6) 10^3/ul Absolute Basos (auto) (0-0.2) 10^3/ul Absolute Nucleated RBC 10^3/ul Nucleated RBC % Sodium (135-145) mmol/L Potassium (3.5-5.0) mmol/L Chloride (101-111) mmol/L Carbon Dioxide (22-32) mmol/L Anion Gap (2-11) mmol/L BUN (6-24) mg/dL Creatinine (0.51-0.95) mg/dL Est GFR ( Amer) (>60) Est GFR (Non-Af Amer) (>60) BUN/Creatinine Ratio (8-20) Glucose (70-100) mg/dL Lactic Acid (0.5-2.0) mmol/L Calcium (8.6-10.3) mg/dL Total Bilirubin (0.2-1.0) mg/dL AST (13-39) U/L ALT (7-52) U/L Alkaline Phosphatase (34-104) U/L C-Reactive Protein (<8.01) mg/L Total Protein (6.4-8.9) g/dL Albumin (3.2-5.2) g/dL Globulin (2-4) g/dL Albumin/Globulin Ratio (1-3) Urine Color Yellow Urine Appearance Cloudy Urine pH 5.0 (5-9) Ur Specific [place] 1.019 (1.010-1.030) Urine Protein Negative (Negative) Urine Ketones Negative (Negative) Urine Blood Negative (Negative) Urine Nitrate Negative (Negative) Urine Bilirubin Negative (Negative) Urine Urobilinogen Negative (Negative) Ur Leukocyte Esterase 2+ A (Negative) Urine WBC (Auto) 3+(>20/hpf) A (Absent) Urine RBC (Auto) 1+(3-5/hpf) A (Absent) Ur Squamous Epith Cells Present A (Absent) Urine Bacteria Absent (Absent) Hyaline Casts Present A (Absent) Urine Glucose Negative (Negative) Influenza A (Rapid) Negative (Negative) Influenza B (Rapid) Negative (Negative) Microbiology and Other Data: Microbiology 05/22/18 10:13 Urine Culture - Final Urine 05/22/18 08:16 Influenza Types A,B Antigen - Final Nasal Specimen received for Influenza A/B Molecular testing Diagnostic Imaging: Patient Name: NIDHI QUEVEDO Medical Record#: [id number] Ordering Physician: Stephanie Paiz MD Acct.#: [id number] : 1950 Age: 67 Sex: F Location: [address] [place] [address]/TELEMETRY Exam Date: 05/23/18 104 ADM Status: ADM Seema Order Information: VL CAROTID BILATERAL Accession Number: [id number] CPT: 13138 INDICATION: Vertigo. COMPARISON: No relevant prior exams available on the [facility] for comparison. TECHNIQUE: Bilateral carotid duplex scan. Stenosis estimations reflect velocity criteria that have been correlated to angiographic stenosis calculations based on distal internal carotid diameter. REPORT: RIGHT ICA: 44 cm/s peak systolic 20 cm/s end diastolic CCA: 62 cm/s peak systolic ICA/CCA peak systolic ratio: 0.71 The right common carotid artery and internal carotid artery are without evidence for significant atherosclerotic disease. Tortuous RIGHT internal carotid artery. Normal spectral wave forms are present throughout. Antegrade flow in the right vertebral artery. LEFT ICA: 50 cm/s peak systolic 24 cm/s end diastolic CCA: 51 cm/s peak systolic ICA/CCA peak systolic ratio: 1.1 Minimal predominant calcific plaque at the LEFT carotid bulb and proximal internal carotid artery. Normal spectral wave forms are present throughout. Antegrade flow in the left vertebral artery. IMPRESSION: #. Minimal atherosclerotic plaque at the LEFT carotid bifurcation without appreciable internal carotid artery stenosis resulting based on NASCET criteria. #. Negative for atherosclerotic disease at the RIGHT carotid artery. CPT II Codes: 3100F Patient Name: NIDHI QUEVEDO Medical Record#: [id number] Ordering Physician: Stephanie Paiz MD Acct.#: [id number] : 1950 Age: 67 Sex: F Location: [address] [place] [address]/[place]LEMETRY Exam Date: 05/23/18 1003 ADM Status: ADM Seema Order Information: MRI BRAIN W/O Accession Number: [id number] CPT: 98981 HISTORY: Dizziness, suspect left cerebellar stroke COMPARISONS: May 22, 2018 TECHNIQUE: The following sequences were obtained of the head: Sagittal T1- weighted images, axial T2-weighted images, axial FLAIR images, axial susceptibility weighted images, axial T1-weighted images. Additionally, axial diffusion-weighted images were obtained with calculated apparent diffusion coefficients. FINDINGS: HEMORRHAGE/INFARCT: There is no hemorrhage or acute infarct. MASSES/SHIFT: There is no mass or shift. EXTRA-AXIAL SPACES/MENINGES: There are no extra-axial fluid collections. SULCI AND VENTRICLES: The sulci and ventricles are normal in size and position for the patient's stated age. CEREBRUM: There are multiple scattered small foci of elevated T2/FLAIR signal within the periventricular and subcortical white matter. BRAINSTEM: There are no focal parenchymal abnormalities. CEREBELLUM: There are no focal parenchymal abnormalities. On axial images, left inferior cerebellum appears mildly dysplastic, though this is felt to represent volume averaging through a mildly prominent left cerebellar fissure. The cerebellar tonsils are normal in size and position. SELLA: The sella is normal. PINEAL: The pineal region is clear. CP ANGLE/TEMPORAL BONES: The labyrinthine structures are grossly normal. VESSELS: Normal flow-voids are noted within the visualized vertebral vasculature. DIFFUSION ABNORMALITIES: There are no diffusion abnormalities. PARANASAL SINUSES/MASTOIDS: The paranasal sinuses are clear. There are small bilateral mastoid effusions. ORBITS: The orbits are unremarkable. BONES AND SOFT TISSUE: No bone or soft tissue abnormalities are noted. OTHER: None IMPRESSION: 1. STABLE SCATTERED NONSPECIFIC WHITE MATTER CHANGES. 2. NO RESTRICTED DIFFUSION TO SUGGEST ACUTE INFARCT. <Electronically signed by Jason Gardner MD in [place]> 05/23/18 130 Dictated By: Jason Gardner MD Dictated Date/Time: 05/23/181306 Transcribed Date/Time: 05/23/18 130 This report is only to be considered final once signed by the Provider(s) as displayed in the "<Electronically Signed by >" field (s). Absence of a signature indicates the report is in a draft status and still needs to be finalized. In the event this document was created by someone other than the signing Provider, the individual initiating the document will be listed in the "Entered by:" or "Dictated by:" reyez. 1 of 2 Patient Name: NIDHI QUEVEDO Medical Record#: [id number] Ordering Physician: Na JHAVERI Acct.#: [id number] : 1950 Age: 67 Sex: F Location: EMERGENCY DEPARTMENT Exam Date: 05/22/18950 ADM Status: REG ER Order Information: CTA CHEST Accession Number: [id number] CPT: 82197 HISTORY: CA hx/ SOB/ diaphoretic COMPARISONS: PET/CT dated May 31, 2017 TECHNIQUE: Multiple contiguous axial CT scans of the chest were obtained after the administration of nonionic intravenous contrast, timed to the pulmonary arterial phase of contrast enhancement.. Coronal and sagittal multiplanar reformations are also submitted for review. FINDINGS: NECK AND THYROID: The lower neck and thyroid are unremarkable. CHEST WALL: There is no lower cervical, axillary, or supraclavicular lymphadenopathy by size criteria. HEART AND PERICARDIUM: The heart is unremarkable. AORTA AND PULMONARY VASCULATURE: There is no pulmonary arterial filling defect to suggest pulmonary embolism. The aorta is not well evaluated secondary to technique and phase of contrast demonstration. There is mild calcific atherosclerosis disease. The aorta is otherwise grossly normal.. MEDIASTINUM: There is no mediastinal lymphadenopathy by size criteria. DONNA: There is no hilar lymphadenopathy by size criteria. AIRWAY AND ESOPHAGUS: The airway is unremarkable, without endobronchial filling defect. The esophagus is grossly normal. LUNG PARENCHYMA: The lungs are clear. PLEURA: No pleural abnormalities are noted. UPPER ABDOMEN: The upper abdomen is unremarkable. BONES AND SOFT TISSUES: No bone or soft tissue abnormalities are noted. OTHER: None. IMPRESSION: NO PULMONARY ARTERIAL FILLING DEFECT TO SUGGEST PULMONARY EMBOLISM. <Electronically signed by Jason Gardner MD in OV> 05/22/18 110 Dictated By: Jason Gardner MD Dictated Date/Time: 05/22/181103 Transcribed Date/Time: 05/22/181101 Copy to: Assess/Plan/Problems-Billing Assessment: This is a 67 year old female with history of low grade lymphoma and tobacco abuse, that presented to the ER with complaint of persistent, intractable dizziness, hypoxia, and vomiting. - Patient Problems (1) Dizziness Status: Acute Code(s): R42 - DIZZINESS AND GIDDINESS SNOMED Code(s): 952630666 Comment: - BPPV - Confounding with episode of afib overnight- seen by cardiology who reports episode is not afib - MRI, MRA, US carotids as above - Neurology consult appreciated, Eppley Maneuvers applied by Dr. Paiz- reports dizziness is improving- continues to have, gait imbalance with walking. - ECHO with negative bubble study - Continue meclizine PRN - Optimize lipids, will start high dose statin and AC (2) PAF (paroxysmal atrial fibrillation) Status: Acute Code(s): I48.0 - PAROXYSMAL ATRIAL FIBRILLATION SNOMED Code(s) : 326514688 Comment: - Noted on tele overnight, not captured on EKG- seen by cardiology who feels arrhythmia was not afib - May be having small embolic events given MRI findings (nothing new or acute though) which may be contributing to current symptoms - Discussed anticoagulation with Dr. Mariano from neurology again today - will stop eliquis and start Aspirin 81 mg po daily as per cardiology recommendations - currently in SR on the monitor, arrhythmia on the monitor but no afib - suspect that her arrhythmias are related to her hypothyroidism (3) Hypothyroid Status: Acute Code(s): E03.9 - HYPOTHYROIDISM, UNSPECIFIED SNOMED Code(s): 15758367 Comment: TSH 77 - will stop levothyroxine at 250mcg - as patient reports today that she only takes her levothyroxine maybe once a week. - will start levothyroxine at 100mcg po daily - will need TSH rechecked in 4 to 6 weeks with PMD (4) History of lymphoma Status: Acute Code(s): Z85.79 - PRSNL HX OF [facility] [place] NEOPLM OF LYMPHOID, HEMATPOETC & REL TISS SNOMED Code(s): 932608366 Comment: - Stable (5) Hypoxia Status: Acute Code(s): R09.02 - HYPOXEMIA SNOMED Code(s): 964871265 Comment: - Etiology unclear, may be underlaying COPD - CTA chest negative for PE - attempted to wean O2 but o2 dropped to 88% on 2 liters, recovered with 3 liters NC to 94%., will need oxygen for home at 3 liters . (6) DVT prophylaxis Status: Acute Code(s): LXP1137 - SNOMED Code(s): 452787812 Comment: stopping eliquis and discharging home (7) Full code status Status: Acute Code(s): Z78.9 - OTHER SPECIFIED HEALTH STATUS SNOMED Code(s) : 993435502 (8) Dyslipidemia Status: Acute Code(s): E78.5 - HYPERLIPIDEMIA, UNSPECIFIED SNOMED Code(s): 077605785 Comment: start lipitor at 80 mg po daily Status and Disposition: Remain inpatient. DC to home when medically stable.
--- NOTE | 2018-05-26 02:34 | PN ---
NEUROLOGICAL FOLLOWUP NOTE: DATE OF FOLLOWUP: 05/23/18 - ROOM #442 PATIENT OF: Rukhsana Aldana NP HISTORY: Dr. Paiz had seen on 05/23/18. At that point, he thought she had atrial fibrillation and therefore on the basis of her vertigo and also her abnormal MRI scan, recommended Eliquis; however, Dr. Salgado saw her and did not think she had any significant atrial arrhythmia and had some heart problems secondary to her severe hypothyroidism where she was medically noncompliant with medications. He, therefore, discontinued the Eliquis and has her on aspirin. The patient, in talking to her, has had no prior episodes of possible stroke and the dizziness with room spinning is much better but not completely resolved. MEDICATIONS: Include her Antivert and she has been switched to aspirin by Jovan. PHYSICAL EXAMINATION: Temperature 98.2, pulse 71, respirations 20, blood pressure 150/69. She was alert and oriented with normal speech and comprehension. Cranial nerves II through XII were normal other than 2 beats of nystagmus when looking to the left. She was not dizzy. Strength is 5/5. [id number] is intact. Chest clear. Cardiovascular: Regular rate and rhythm. DIAGNOSTIC STUDIES: I reviewed her MRI scan films, which did show some diffuse white matter disease, some of it is subcortically. There is no acute infarct. Her MRA and carotid Dopplers were negative. Her transthoracic echo showed no source of clot. LABORATORY DATA: Labs include TSH of 77, her LDL is 256 and she is going on the statin. IMPRESSION AND PLAN: I discussed with her and Jovan that she has had no prior stroke. It is not clear whether the vertigo currently was central or peripheral. She said the Alejandro maneuver has clearly helped her and with positional vertigo, this may well have been a peripheral neuritis or labyrinthitis. If she does not have atrial fibrillation, then she does not have any clear indications for anticoagulation. I agree with Dr. Salgado. I think that it would make sense to do some more prolonged monitoring, especially once her thyroid is done to see if she has atrial arrhythmia, especially since the MRI scan showed some diffuse white matter disease. Some of which was subcortically, which would be possible but less likely for just small vessel ischemic disease. I have asked Jovan to schedule a followup to see me in 6 to 8 weeks. Thank you for sharing her case. [id number]/[facility] #: [id number] ELENA
--- NOTE | 2018-05-26 08:01 | DS ---
CC: Dr. Loredo * DISCHARGE SUMMARY: DATE OF ADMISSION: 05/22/18 DATE OF DISCHARGE: 05/25/18 PROVIDER: Rukhsana Aldana NP ATTENDING PHYSICIAN: Dr. Marlo Thomas * (dictated by Rukhsana Aldana NP). PRIMARY CARE PROVIDER: Dr. Mono Loredo. PRIMARY DIAGNOSES: 1. Benign positional paroxysmal vertigo. 2. Hypothyroidism, noncompliance with levothyroxine. 3. Hypoxia. 4. Severe dyslipidemia. SECONDARY DIAGNOSIS: Non-Hodgkin's lymphoma. STUDIES COMPLETED WHILE IN THE HOSPITAL: The patient had a chest x-ray on 05/22. Radiologist's impression, no evidence of active cardiopulmonary disease. She had an electrocardiogram on 05/22/18, which showed sinus bradycardia at a rate of 58. She had a CT of the chest on 05/22/18. Radiologist's impression, no pulmonary arterial filling defect to suggest pulmonary embolism, lung parenchyma. Lungs are clear. No pleural abnormalities were noted. She had a CT of the brain on 05/22/18. Radiologist's impression, no acute intracranial pathology. She had an MRI on 05/22/18. Radiologist's impression, there is multiple foci of elevated T2/FLAIR signal within the periventricular and subcortical white matter. All these findings are nonspecific. They can be seen associated with migraine headaches in the sequelae of previous infection or inflammation and chronic small vessel ischemia, demyelinating disease also a differential, but is considered less likely in the absence of appropriate clinical presentation. There is no restrictive diffusion to suggest acute infarct. She had a transthoracic echocardiogram on 05/23/18. Conclusion, the left ventricular chamber is normal size. Mild concentric left ventricular hypertrophy is observed. Global left ventricular wall motion and contractility are within normal limits. There is normal left ventricular systolic function with estimated ejection fraction 60% to 65%. Left atrial chamber is normal size , and right ventricular size and systolic function are within normal limits. No significant valvular abnormality is noted. The bubble study is negative. There is mild dilation to aortic root. She had an MRI of the brain on . Radiologist's impression, stable scattered nonspecific white matter changes. No restrictive diffusion to suggest acute infarct. She had an MRA of the brain on 05/23/18, limited study; no aneurysm, vascular malformation, occlusion, or stenosis of the visualized intracranial circulation. She had a carotid Doppler on 05/23/18. Radiologist's impression, minimal atherosclerotic plaque in the left carotid bifurcation without appreciable internal carotid artery stenosis resulting based on NASCET criteria, negative for arterial sclerotic disease in the right carotid artery. DISCHARGE MEDICATIONS: New home medications: 1. Atorvastatin 80 mg p.o. daily at bedtime. 2. Levothyroxine 100 mcg p.o. daily. 3. Aspirin 81 mg p.o. daily. 4. Meclizine 25 mg p.o. q.8 hours as needed for dizziness. Discontinued home medication: Levothyroxine 250 mcg. HISTORY OF PRESENT ILLNESS AND HOSPITAL COURSE: Ms. Sarmiento is a 67-year-old female with past medical history significant for hypothyroidism and low-grade non- Hodgkin's lymphoma who states that she has been in her usual state of health over the last few days with the exception of fan sounds in her right ear intermittently. She states that she rolled over this morning in bed and developed dizziness. She describes this as room spinning, accompanied by vomiting this morning. She denies any fever, chills, chest pain, cough, upper respiratory symptoms, shortness of breath, or abdominal pain. She denied any urinary symptoms as well. Due to the dizziness and vomiting, she was brought to the emergency room by her daughter. While in the emergency room, the patient received meclizine and 2 L of saline. She received some Ativan. She had a urinalysis that was unremarkable and EKG showed sinus bradycardia. She had a CTA of the chest with no acute pathology. On admission to the emergency room, the triage note did note that she was hypoxic with O2 saturation of 84% on room air. She was able to maintain O2 saturations in the high 90s on 3 L and 2 L nasal cannula, she is in the low 90s. Given the patient's continued dizziness, we were asked to evaluate her and she was admitted to the hospital. During the hospitalization, she was seen in consultation by Neurology who felt that her symptoms were related to benign positional vertigo, but there was also a concern that she could have, and so she was started on Valium 5 mg q.8 hours as needed for severe vertigo and continued meclizine 25 mg every 8 hours for the dizziness. She did have, during her hospitalization, positive for nystagmus as well. She did have the Apley maneuver completed by the neurologist, which helped improve her symptoms of dizziness. She did continue to have residual dizziness throughout the hospitalization and continued on the day of discharge. The patient was thought to have paroxysmal atrial fibrillation and was initially started on anticoagulation with Eliquis. She did later have a consultation by Cardiology who reviewed all of her telemetry strips and concluded that this was not indeed related to atrial fibrillation and her Eliquis was stopped. It was recommended that she continue on aspirin 81 mg p.o. daily. The patient remained on oxygen throughout her hospitalization. On attempts to wean her oxygen, her oxygen saturations dropped to 84% on room air. She was placed back on nasal cannula oxygen at 3 L and was able to maintain her O2 saturation at 94% on 3 L nasal cannula. The patient has a steady gait and she is ambulating with a walker for balance stability. At this time, the patient will be discharged to home. Vital signs are as follows: Blood pressure 152/69 , heart rate 71, respirations are 20, O2 saturation 96% on 3 L nasal cannula, temp was 98.2. DISCHARGE PLAN: Ms. Sarmiento will be discharged back home. Activity as tolerated. She should use a walker when ambulating. She should continue on her heart-healthy low-sodium diet. 1. Benign paroxysmal positional vertigo. The patient will continue on meclizine 25 mg p.o. q.8 hours as needed for dizziness. The patient did have some arrhythmias on the monitor during her hospitalization. I would recommend further long-term Holter monitoring or loop recorder to rule out any continued arrhythmias. I did discuss with Neurology today, Dr. Mariano, who has recommended that the patient follow up with Neurology in 6 to 7 weeks; she should follow up with Dr. Mariano at that time. She will be placed on an aspirin 81 mg p.o. daily. I would also recommend outpatient vestibular rehab to assess in improving her dizziness. 2. Hypothyroidism. The patient admits to only taking her thyroid medication approximately 1 day a week of 250 mcg of levothyroxine. Her levothyroxine was decreased to 100 mcg as the patient is noncompliant with this at home. I will begin her on a 100 mcg levothyroxine p.o. daily. Her TSH during this hospitalization was 77. She will need a repeat TSH in 4 to 6 weeks. 3. Dyslipidemia. The patient will be started on atorvastatin 80 mg p.o. daily as recommended by Neurology and Cardiology. She should have her liver functions monitored as an outpatient. 4. Cardiac arrhythmias. The patient did have some arrhythmias on the monitor. She was seen in consultation by Cardiology during this hospitalization who felt that she had PVCs with compensatory pauses, Wenckebach physiology heart block and brief arrhythmias. There was no atrial fibrillation, flutter, or prolonged pauses or high-degree heart block during this hospitalization. EKGs on this admission were showing PVCs and Cardiology has recommended that the patient continue on aspirin 81 mg as well as the patient should continue on intensive dose atorvastatin at 80 mg for her severe dyslipidemia. I would also recommend that the patient have further monitoring with Holter monitoring or loop recorder as an outpatient as the patient does have scattered white foci on an MRI, which could be associated with scattered embolic stroke and we would want to rule out any atrial fibrillation that may have occurred to cause this abnormality. 5. Hypoxia. The patient was hypoxic on admission with O2 saturation of 84%. She did have a chest x-ray and a CTA of the chest, which were both negative for pulmonary embolism and pneumonia. During her hospitalization, she was maintained on 3 L nasal cannula. Several attempts were made to wean and discontinue her oxygen that were unsuccessful. On room air, the patient continued to desaturate to 84%. I would recommend that the patient follow up with Pulmonology as an outpatient for pulmonary function testing to diagnose underlying disease of her hypoxia. I suspect that this is probably related to underdiagnosed COPD as the patient has a longstanding history of smoking. The patient will be discharged on oxygen 3 L nasal cannula for home; she should wear this at all times. FOLLOWUP: The patient is recommended to follow up with her primary care provider in 1 to 3 days. I recommended that she needs to follow up with Neurology, Dr. Mariano, in 6 to 7 weeks. She should also follow up with Pulmonology as soon as possible to diagnose underlying lung condition for her hypoxia. DISCHARGE INSTRUCTIONS: The patient was instructed to return to the emergency room for any chest pain, shortness of breath, any severe dizziness, weakness on one side, slurred speech, or any other concerning symptoms. This is a summarization of her medical stay. For further details, please obtain the entire medical record. TIME SPENT: Time spent on this discharge was approximately 60 minutes, greater than half that time was spent with the patient and her daughter discussing discharge plans and instructions. CONDITION ON DISCHARGE: Stable. RUKHSANA ALDANA, SARAH BETH [id number]/[facility] #: [id number] [facility] CENTERMohini
== END 2018-05-25 17:00 | disposition home or self-care (01) | DRG 149 ==
LOC: ED 07:52 → MEDTELE 13:10 → OBSVTOIN 05-24 15:04
PROVIDERS: ADMIT Internal Medicine; ATTEND Pediatrics
DX: H81.10 Benign paroxysmal vertigo, unspecified ear (principal); C85.90 Non-Hodgkin lymphoma, unspecified, unspecified site; N17.9 Acute kidney failure, unspecified; E03.9 Hypothyroidism, unspecified; R09.02 Hypoxemia; E66.9 Obesity, unspecified; F17.210 Nicotine dependence, cigarettes, uncomplicated; E78.5 Hyperlipidemia, unspecified; H55.00 Unspecified nystagmus; I49.1 Atrial premature depolarization; Z82.49 Family history of ischemic heart disease and other diseases of the circulatory system; Z83.3 Family history of diabetes mellitus; Z80.7 Family history of other malignant neoplasms of lymphoid, hematopoietic and related tissues; Z80.8 Family history of malignant neoplasm of other organs or systems; Z79.899 Other long term (current) drug therapy; Z68.29 Body mass index [BMI] 29.0-29.9, adult
CPT/HCPCS: 36415; 70450; 70544; 70551; 71046; 71275; 80048; 80053; 80061; 81003; 81015; 82607; 83605; 83721; 84443; 85025; 86140; 87086; 90686; 93005; 93306; 93880; 96360; 99284; 99406; A9270-GY; G0378; G8978-GP-CI; G8979-GP-CH; J1644; J2060; Q9967

== ENCOUNTER 2019-03-10 21:14 | Inpatient (IN) | payer MEDICARE ==
[2019-03-10] MEDS ORDERED: NS 0.9% 1000 ML** 3,000 ML IV ONE (21:40)
[2019-03-10] MEDS ORDERED: Levofloxacin 750 MG IVPREMIX(* 750 MG/150 ML BAG IVPB ONE (21:40)
[2019-03-10] MEDS ORDERED: Acetaminophen TAB* 325 MG PO ONE (21:40)
[2019-03-10] MEDS ORDERED: Albuterol/Ipratropium NEB.SOL* Albuterol 2.5 MG/Ipratropium 0.5 MG 3 ML INH ONE (21:41)
[2019-03-10] MEDS ORDERED: methylPREDNISolone 125 MG* 2 ML VIAL IV ONE (21:41)
[2019-03-10] MEDS ORDERED: Magnesium Sulfate 2 GM IV* 2 GM/50 ML BAG IVPB ONE (21:42)
[2019-03-10] MEDS ORDERED: Albuterol 2.5 MG/3 ML NEB.SOL* (0.083%) INH ONE (21:48)
[2019-03-10 22:06] LABS: Hematocrit 40 % (35-47); Hemoglobin 13.5 g/dL (12.0-16.0); Mean Corpuscular HGB Conc 34 g/dL (31-36); Mean Corpuscular Hemoglobin 30 pg (27-31); Mean Corpuscular Volume 90 fL (80-97); Mean Platelet Volume 9.8 fL (7.4-10.4); Platelet Count 142 10^3/uL (150-450); Red Blood Count 4.43 10^6 /uL (3.70-4.87); Red Cell Distribution Width 14 % (10-15); White Blood Count 6.9 10^3/uL (3.5-10.8)
[2019-03-10 22:12] LABS: ABS Lymphocytes 0.5 10^3/ul (1.0-4.8); ABS Monocytes 0.3 10^3/ul (0-0.8); ABS Neutrophils 6.1 10^3/ul (1.5-7.7); Eosinophil % 0.1 %; Lymphocyte % 7.7 %
[2019-03-10] MEDS: Albuterol 2.5 MG/3 ML NEB.SOL* (0.083%) INH SCH ×2 (22:13→22:25)
[2019-03-10 22:18] LABS: Activated Partial Thrombo Time 33.3 seconds (26.0-38.0)
[2019-03-10 22:31] LABS: ALT 128 U/L (7-52); AST 246 U/L (13-39); Albumin 3.7 g/dL (3.2-5.2); Albumin/Globulin Ratio 1.1 (1-3); Alkaline Phosphatase 87 U/L (34-104); Anion Gap 12 mmol/L (2-11); BUN/Creatinine Ratio 19.9 (8-20); Blood Urea Nitrogen 48 mg/dL (6-24); C Reactive Protein 120.72 mg/L (<8.01); CO2 Carbon Dioxide 25 mmol/L (22-32); Calcium 9.1 mg/dL (8.6-10.3); Chloride 94 mmol/L (101-111); EGFR African American 24.2 (>60); Globulin 3.5 g/dL (2-4); Glucose 146 mg/dL (70-100); Potassium 3.7 mmol/L (3.5-5.0); Sodium 131 mmol/L (135-145); Total Protein 7.2 g/dL (6.4-8.9)
[2019-03-10 22:39] LABS: Troponin I 0.09 ng/mL (<0.04)
[2019-03-11] MEDS ORDERED: Albuterol/Ipratropium NEB.SOL* Albuterol 2.5 MG/Ipratropium 0.5 MG 3 ML INH PRN (00:08)
[2019-03-11] MEDS ORDERED: Acetaminophen TAB* 325 MG PO PRN (00:08)
--- NOTE | 2019-03-11 00:19 | ED ---
Shortness of Breath - HPI Summary HPI Summary: The pt is a 68 year old [place] [facility] [place], rashes, and weakness beginning 1 day ago, and diarrhea beginning 3 days ago. She has difficulty speaking due to the SOB and notes that the rashes have been spreading consistently. The rashes are not pruritic. She went to see her PCP 3 days ago and they noted that her O2 Sat levels were in the 80s on room air, per the triage. She has also been feeling weak throughout the entire day today. The pts daughter spoke on her behalf in the room. The pt is a former smoker and has Hx of COPD. - History of Current Complaint Chief Complaint: EDGeneral Time Seen by Provider: 03/10/19 21:29 Hx Obtained From: Patient, Family/[employer] - Daughter Onset/Duration: Sudden Onset, Lasting Days, Still Present Timing: Constant Current Severity: None Dyspnea At: Rest - Allergy/Home Medications Allergies/Adverse Reactions: Allergies Allergy/AdvReac Type Severity Reaction Status Date / Time No Known Allergies Allergy Verified 03/10/19 21:22 PMH/Surg Hx/FS Hx/Imm Hx Endocrine/Hematology History: Reports: Hx Thyroid Disease - hypothyroidism Cardiovascular History: Denies: Hx Pacemaker/ICD, Hx Peripheral Vascular Disease Respiratory History: Reports: Hx Chronic Obstructive Pulmonary Disease (COPD) Denies: Hx Asthma Musculoskeletal History: Denies: Hx Arthritis Sensory History: Reports: Hx Contacts or Glasses Denies: Hx Hearing Aid, Hx Hearing Problem Opthamlomology History: Reports: Hx Contacts or Glasses Neurological History: Denies: Hx Transient Ischemic Attacks (TIA) Psychiatric History: Denies: Hx Panic Disorder - Cancer History Cancer Type, Location and Year: Non hodgekins lymphoma Hx Chemotherapy: No Hx Radiation Therapy: No - Surgical History Surgery Procedure, Year, and Place: henia repair as an infant. thyroid surgery in the . tubal ligation late . breast bx; lumpectomy Hx Anesthesia Reactions: No Infectious Disease History: No Infectious Disease History: Denies: Hx Clostridium Difficile, Hx Hepatitis, Hx Human Immunodeficiency Virus (HIV), Hx of Known/Suspected MRSA, Hx Shingles, Hx Tuberculosis, Traveled Outside the [place] in Last 30 Days - Family History Known Family History: Positive: Cardiac Disease - Social History Alcohol Use: Rare Hx Substance Use: No Substance Use Type: Reports: None Hx Tobacco Use: Yes Smoking Status (MU): Former Smoker Type: Cigarettes Amount Used/How Often: 1/2 ppd, has smoked on and off since 16 years old Length of Time of Smoking/Using Tobacco: 50 Have You Smoked in the Last Year: Yes Review of Systems Positive: Fatigue Positive: Shortness Of Breath Positive: Diarrhea Positive: Rash - no pruritus All Other Systems Reviewed And Are Negative: Yes Physical Exam - Summary Physical Exam Summary: VITAL SIGNS: Reviewed. GENERAL: Patient is a well-developed and nourished female who is lying comfortable in the stretcher. Patient is not in any acute respiratory distress. HEAD AND FACE: No signs of trauma. No ecchymosis, hematomas or skull depressions. No sinus tenderness. EYES: PERRLA, EOMI x 2, No injected conjunctiva, no nystagmus. EARS: Hearing grossly intact. Ear canals and tympanic membranes are within normal limits. MOUTH: Oropharynx within normal limits. NECK: Supple, trachea is midline, no adenopathy, no JVD, no carotid bruit, no c- spine tenderness, neck with full ROM CHEST: Symmetric, no tenderness at palpation LUNGS: Expiratory wheezes. Decreased breath sounds. CVS: tachycardic, S1 and S2 present, no murmurs or gallops appreciated. ABDOMEN: Soft, non-tender. No signs of distention. No rebound no guarding, and no masses palpated. Bowel sounds are normal. EXTREMITIES: FROM in all major joints, no edema, no cyanosis or clubbing. NEURO: Alert and oriented x 3. No acute neurological deficits. Speech is normal and follows commands. SKIN: Dry and warm. Diffuse Rash, reticular on her back and both cheeks, consistent with parvovirus B-19 infection (erythema infectiosum). Triage Information Reviewed: Yes Vital Signs On Initial Exam: Initial Vitals Temp Pulse Resp BP Pulse Ox 101.1 F 115 32 119/64 96 03/10/19 21:17 03/10/19 21:17 03/10/19 21:17 03/10/19 21:17 03/10/19 21:17 Vital Signs Reviewed: Yes Diagnostics - Vital Signs Vital Signs Temp Pulse Resp BP Pulse Ox 03/10/19 23:06 99 F 03/10/19 22:25 106 18 99 03/10/19 22:17 101.7 F 03/10/19 22:16 106 24 99 03/10/19 22:15 103 20 100/85 98 03/10/19 22:00 106 30 95 03/10/19 21:44 102 F 03/10/19 21:35 111 36 97 03/10/19 21:17 101.1 F 115 32 119/64 96 - Laboratory Lab Results: Lab Results 03/10/19 03/10/19 03/10/19 Range/Units 22:00 22:00 22:00 WBC 6.9 (3.5-10.8) 10^3/uL RBC 4.43 (3.70-4.87) 10^6 /uL Hgb 13.5 (12.0-16.0) g/dL Hct 40 (35-47) % MCV 90 (80-97) fL MCH 30 (27-31) pg MCHC 34 (31-36) g/dL RDW 14 (10-15) % Plt Count 142 L (150-450) 10^3/uL MPV 9.8 (7.4-10.4) fL Neut % (Auto) 88.1 % Lymph % (Auto) 7.7 % Caswell % (Auto) 3.9 % Eos % (Auto) 0.1 % Baso % (Auto) 0.2 % Absolute Neuts (auto) 6.1 (1.5-7.7) 10^3/ul Absolute Lymphs (auto) 0.5 L (1.0-4.8) 10^3/ul Absolute Monos (auto) 0.3 (0-0.8) 10^3/ul Absolute Eos (auto) 0.0 (0-0.6) 10^3/ul Absolute Basos (auto) 0.0 (0-0.2) 10^3/ul Absolute Nucleated RBC 0.0 10^3/ul Nucleated RBC % 0.0 INR (Anticoag Therapy) 1.00 (0.82-1.09) APTT 33.3 (26.0-38.0) seconds ABG pH (7.35-7.45) ABG pCO2 (35-45) mmHg ABG pO2 (80-100) mmHg ABG HCO3 (19-31) mmol/L ABG O2 Saturation (94.0-98.0) % ABG Base Excess (-2.0-2.0) mmol/L Sodium 131 L (135-145) mmol/L Potassium 3.7 (3.5-5.0) mmol/L Chloride 94 L (101-111) mmol/L Carbon Dioxide 25 (22-32) mmol/L Anion Gap 12 H (2-11) mmol/L BUN 48 H (6-24) mg/dL Creatinine 2.41 H (0.51-0.95) mg/dL Est GFR ( Amer) 24.2 (>60) Est GFR (Non-Af Amer) 20.0 (>60) BUN/Creatinine Ratio 19.9 (8-20) Glucose 146 H (70-100) mg/dL Lactic Acid (0.5-2.0) mmol/L Calcium 9.1 (8.6-10.3) mg/dL Total Bilirubin 0.80 (0.2-1.0) mg/dL AST 246 H (13-39) U/L ALT 128 H (7-52) U/L Alkaline Phosphatase 87 (34-104) U/L Troponin I 0.09 H* (<0.04) ng/mL C-Reactive Protein 120.72 H (<8.01) mg/L B-Natriuretic Peptide (<=100) pg/mL Total Protein 7.2 (6.4-8.9) g/dL Albumin 3.7 (3.2-5.2) g/dL Globulin 3.5 (2-4) g/dL Albumin/Globulin Ratio 1.1 (1-3) 03/10/19 03/10/19 03/10/19 Range/Units 22:00 22:00 22:05 WBC (3.5-10.8) 10^3/uL RBC (3.70-4.87) 10^6 /uL Hgb (12.0-16.0) g/dL Hct (35-47) % MCV (80-97) fL MCH (27-31) pg MCHC (31-36) g/dL RDW (10-15) % Plt Count (150-450) 10^3/uL MPV (7.4-10.4) fL Neut % (Auto) % Lymph % (Auto) % Caswell % (Auto) % Eos % (Auto) % Baso % (Auto) % Absolute Neuts (auto) (1.5-7.7) 10^3/ul Absolute Lymphs (auto) (1.0-4.8) 10^3/ul Absolute Monos (auto) (0-0.8) 10^3/ul Absolute Eos (auto) (0-0.6) 10^3/ul Absolute Basos (auto) (0-0.2) 10^3/ul Absolute Nucleated RBC 10^3/ul Nucleated RBC % INR (Anticoag Therapy) (0.82-1.09) APTT (26.0-38.0) seconds ABG pH 7.44 (7.35-7.45) ABG pCO2 34 L (35-45) mmHg ABG pO2 83 (80-100) mmHg ABG HCO3 24.5 (19-31) mmol/L ABG O2 Saturation 98.7 H (94.0-98.0) % ABG Base Excess -0.5 (-2.0-2.0) mmol/L Sodium (135-145) mmol/L Potassium (3.5-5.0) mmol/L Chloride (101-111) mmol/L Carbon Dioxide (22-32) mmol/L Anion Gap (2-11) mmol/L BUN (6-24) mg/dL Creatinine (0.51-0.95) mg/dL Est GFR ( Amer) (>60) Est GFR (Non-Af Amer) (>60) BUN/Creatinine Ratio (8-20) Glucose (70-100) mg/dL Lactic Acid 1.4 (0.5-2.0) mmol/L Calcium (8.6-10.3) mg/dL Total Bilirubin (0.2-1.0) mg/dL AST (13-39) U/L ALT (7-52) U/L Alkaline Phosphatase (34-104) U/L Troponin I (<0.04) ng/mL C-Reactive Protein (<8.01) mg/L B-Natriuretic Peptide 38 (<=100) pg/mL Total Protein (6.4-8.9) g/dL Albumin (3.2-5.2) g/dL Globulin (2-4) g/dL Albumin/Globulin Ratio (1-3) Result Diagrams: 03/10/19 22:00 03/10/19 22:00 Lab Statement: Any lab studies that have been ordered have been reviewed, and results considered in the medical decision making process. - Radiology CXR Radiology Interpretation Completed By: ED Physician Summary of Radiographic Findings: No acute processes, pending official report. - CT CXR CT Interpretation Completed By: ED Physician Summary of CT Findings: No acute processes, pending official report. - EKG 2138 Cardiac Rate: Tachycardia - 105 BPM EKG Rhythm: Sinus Tachycardia Ectopy: PVCs Summary of EKG Findings: RBBB, LAFB Course/Dx - Course Course Of Treatment: The pt is a 68 year old female [place] [facility] [place] , rashes, and weakness beginning 1 day ago, and diarrhea beginning 3 days ago. She has difficulty speaking due to the SOB and notes that the rashes have been spreading consistently. The rashes are not pruritic. She went to see her PCP 3 days ago and they noted that her O2 Sat levels were in the 80s on room air, per the triage. She has also been feeling weak throughout the entire day today. The pt is a former smoker and has Hx of COPD. An EKG reveals sinus tachycardia @ 105 bpm, PVCs, RBBB, and LAFB. A CXR reveals no acute processes. Test results with no significant abnormalities except for plt count @ 142, Absolute Lymphs @ 0.5, ABG pCO2 @ 34, ABG O2 Sat @ 98.7, Sodium @ 131, Chloride @ 94, Anion Gap @ 12, BUN @ 48, Creatinine @ 2.41, Glucose @ 146, AST @ 246, ALT @ 128, Troponin @ 0.09, and CRP @ 120.72. In the ED course the pt was given 975 mg tylenol PO, 2.5 mg Ventolin INH, 1 neb Duoneb INH, 750 mg in 150 mls Levaquin @ 100 mls/hr IVPB, 2 gm in 50 mls Magnesium sulfate @ 50 mls/hr IVPB, 125 mg Solu-Medrol IV, and [address] Akhtar was consulted @ 2167. Dr. Akhtar [place] [facility] [place] - Diagnoses Provider Diagnoses: Parvovirus B19 infection, Acute renal failure, Acute bronchitis - Physician Notifications Discussed Care of Patient With: Laurence Akhtar Time Discussed With Above Provider: 22:30 Instructed by Provider To: Admit As Inpatient Discharge - Sign-Out/Discharge Documenting (check all that apply): Patient Departure - Admit Patient Received Moderate/Deep Sedation with Procedure: No - Discharge Plan Condition: Stable Disposition: ADMITTED TO [facility] - Attestation Statements Document Initiated by Scribe: Yes Documenting Scribe: TRAVIS CARRILLO Provider For Whom Scribe is Documenting (Include Credential): NESTOR KELLEY MD Scribe Attestation: I, TRAVIS CARRILLO, scribed for NESTOR KELLEY MD on 03/11/19 at 0143. Status of Scribe Document: Ready
[2019-03-11 00:50] LABS: Troponin I 0.07 ng/mL (<0.04)
[2019-03-11 03:31] LABS: Urine Appearance Cloudy; Urine Bacteria Absent (Absent); Urine Bilirubin Negative (Negative); Urine Blood 2+ (Negative); Urine Color Amber; Urine Glucose Negative (Negative); Urine Ketones Negative (Negative); Urine Nitrite Negative (Negative); Urine Protein 1+(30 mg/dL) (Negative); Urine Red Blood Cell Trace(0-2/hpf) (Absent); Urine Specific Gravity 1.012 (1.010-1.030); Urine Squamous Epithelial Cell Present (Absent); Urine Urobilinogen Negative (Negative); Urine White Blood Cell 1+(6-10/hpf) (Absent)
--- NOTE | 2019-03-11 04:25 | HP ---
CC: Dr. Poonam Gonzalez; Dr. Yi * HISTORY AND PHYSICAL: DATE OF ADMISSION: 03/11/19. PRIMARY CARE PROVIDER: Dr. Poonam Gonzalez. CHIEF COMPLAINT: Diarrhea and rash. HISTORY OF PRESENT ILLNESS: Mehreen Sarmiento is a 68-year-old female with history of oxygen-dependent COPD, who presented to the hospital complaining of shortness of breath, diarrhea, and rash. The patient stated that her symptoms of shortness of breath and diarrhea started occurring some time on Saturday three days ago. She stated that she did not feel well and she did not eat lunch. Subsequently, in the evening of Saturday, she still felt somewhat weak and with poor appetite. She started having diarrhea without abdominal pain on Saturday morning. Her shortness of breath continued to progress over the past couple of days. She started using oxygen continuously, although in the past she had been using it as needed and nightly. She developed rash yesterday, which is 24 hours after the onset of diarrhea. She denies any pain with the rash and/or pruritus. The patient presented today. Her temperature was 101.7. She also was dyspneic and wheezing and received Solu-Medrol and nebulizer treatment in the ED. She is going to be admitted with a diagnosis of diarrhea, rash, acute kidney injury, COPD exacerbation, elevated troponin. PAST MEDICAL HISTORY: 1. COPD, oxygen dependent at night and p.r.n. during the daytime. 2. History of hypothyroidism. 3. History of non-Hodgkin's lymphoma. 4. History of right inguinal hernia repair as a child. 5. History of tubal ligation. 6. History of partial thyroidectomy with subsequent hypothyroidism. MEDICATIONS: At home include: 1. Aspirin 81 mg daily. 2. Synthroid 100 mcg daily. ALLERGIES: No known drug allergies. FAMILY HISTORY: Positive in brother with history of GA, diabetes, as well as "blood cancer." Brother with metastatic cancer of unknown origin. SOCIAL HISTORY: The patient smokes a half pack of cigarettes a day and she has done so for the past 54 years. She denies any drug use. She drinks alcohol rarely. Her daughter, Celeste Sarmiento is her surrogate decision maker. REVIEW OF SYSTEMS: Please see history of present illness. All the remaining 12 systems were reviewed with the patient and were otherwise negative. PHYSICAL EXAMINATION GENERAL: The patient is a very pleasant 68-year-old female who is not in acute distress. Alert, awake, oriented x3. VITAL SIGNS: Blood pressure of 100/85, heart rate of 106 and regular, respiratory rate 18, oxygen saturation 99% on 2 L of oxygen nasal cannula, temperature of 101.7. HEENT: Head: Atraumatic, normocephalic. Eyes: Pupils are equal and reactive to light and accommodation. Oropharynx is clear. Mucosa dry. NECK: Supple. No JVD. No bruits bilaterally. RESPIRATORY: Coarse wheezes at the bilateral lower and mid lungs. CARDIOVASCULAR: Regular rate and rhythm. No murmur. ABDOMEN: Protuberant, soft, nontender. Bowel sounds are present in all 4 quadrants. EXTREMITIES: There is no edema. Pulses +2 bilaterally. There is no clubbing, no cyanosis. SKIN: On evaluation of the skin, the patient has no ecchymotic areas. She has rash that is slightly raised blanchable erythema resembling viral exanthem scattered on the anterior aspect of the patient's trunk and bilateral upper and lower extremities. The rash is basically confluent on the patient's entire back. NEURO EVALUATION: Speech clear. Cranial nerves II through XII grossly intact. Motor strength is 5/5 bilaterally. DIAGNOSTIC STUDIES/LAB DATA: Laboratory data show white blood cell count of 6.9, hemoglobin of 13.5, hematocrit of 40, and platelets of 142,000. ABG showed pH of 7.44, PCO2 of 34, PO2 of 83, bicarb of 24.5. Sodium was 131, potassium 3.7, chloride 94, carbon dioxide 25, BUN 48, creatinine 2.4. Liver function tests showed AST of 246, ALT of 128, bilirubin was unremarkable at 0.8 , alkaline phosphatase was 87 which was also normal. Lactic acid was 1.4. Troponin was 0.09. C-reactive protein was 120. Brain natriuretic peptide was 38. The patient's chest x-ray shows likely atelectasis at the right lung base, less likely pneumonia. That was reviewed by myself prior to the official radiologist report. The patient's EKG showed right bundle branch block with left anterior hemiblock. The patient has a history of left anterior hemiblock, but right bundle block is new to the patient. ASSESSMENT AND PLAN: 1. The patient has diarrhea and acute renal failure with elevated BUN likely due to dehydration. Urinalysis is pending at the time of dictation. I suspect that after the patient received intravenous fluids in the emergency department, and those were 3 L total that were ordered in the ED and continuous IV fluids ordered by myself now. Her renal injury will resolve rather quickly. If it continues to be a problem, she would need to have a renal ultrasound. Urinalysis still pending at the time of dictation, but she has no urinary symptoms. Her diarrhea could be due to food poisoning, although the patient never developed nausea or vomiting. She had chilli at one of the chain restaurants on Saturday night before she started feeling sick on Saturday. It is also possible that the patient has a viral infection and one of the symptoms is diarrhea and that could also cause the rash. Parvovirus B19 testing was ordered by the ED provider. At this point, I will obtain stool cultures and will ask ID specialist to see the patient in the morning. 2. The patient's elevated troponin is likely due to the demand ischemia and dehydration. Nevertheless, her EKG has new right bundle branch block and echocardiogram is going to be obtained. The patient is also going to be placed on telemetry monitored bed. I will follow up with serial troponins. For the time being, aspirin is going to be continued. 3. The patient has hypothyroidism. Her outpatient Synthroid dose is going to be continued. 4. The patient is in chronic obstructive pulmonary disease exacerbation. She did receive the dose of Solu-Medrol in the emergency department. She also received a dose of Levaquin. I am unsure if the patient has a pneumonia on the x-ray and I will await official reading by the radiologist in the morning. For the time being, she would receive 750 mg of IV levofloxacin with her creatinine of 2.4 and GFR of 20 that should stay in her system for a considerable amount of time. I am not going to institute other antibiotics at this point, also due to the patient's rash of unknown etiology. She is going to be treated with continuation of Solu-Medrol as well as nebulizer treatments on an as needed basis. 5. The patient's code status is full. Her surrogate is her daughter as mentioned above. 6. For DVT prophylaxis, the patient is going to be placed on heparin subcutaneously. TIME SPENT: Approximately 70 minutes were spent on admission of this patient; more than half that time was spent [id number] with the patient during the interview and physical exam. [id number]/[facility] #: [id number] ELENA
[2019-03-11] MEDS: Levothyroxine TAB* 100 MCG TAB PO SCH (05:51)
[2019-03-11] MEDS: Heparin VIAL(*) 5000 UNITS/ML VIAL (FIVE THOUSAND) SUBCUT SCH ×3 (05:53→20:57)
[2019-03-11] MEDS: methylPREDNISolone SOD 40 MG* 1 ML VIAL IV SCH ×3 (05:54→21:00)
[2019-03-11 08:26] LABS: ABS Lymphocytes 0.4 10^3/ul (1.0-4.8); ABS Monocytes 0.2 10^3/ul (0-0.8); ABS Neutrophils 5.2 10^3/ul (1.5-7.7); Hematocrit 33 % (35-47); Hemoglobin 11.1 g/dL (12.0-16.0); Lymphocyte % 7.1 %; Mean Corpuscular HGB Conc 33 g/dL (31-36); Mean Corpuscular Hemoglobin 30 pg (27-31); Mean Corpuscular Volume 90 fL (80-97); Mean Platelet Volume 10.3 fL (7.4-10.4); Platelet Count 113 10^3/uL (150-450); Red Blood Count 3.67 10^6 /uL (3.70-4.87); Red Cell Distribution Width 14 % (10-15); White Blood Count 5.8 10^3/uL (3.5-10.8)
[2019-03-11] MEDS: NS 0.9% 1000 ML** 1,000 ML IV SCH ×2 (08:27→20:03)
[2019-03-11 08:44] LABS: BUN/Creatinine Ratio 21.2 (8-20); EGFR African American 23.8 (>60); EGFR Non-African American 19.7 (>60); Potassium 3.7 mmol/L (3.5-5.0)
[2019-03-11] MEDS: Aspirin EC TAB* 81 MG TAB.EC PO SCH (09:45)
--- NOTE | 2019-03-11 14:05 | CONS ---
CONSULTATION REPORT: DATE OF CONSULT: 03/11/19 REQUESTING PHYSICIAN: Dr. Aguilera. CONSULTING SERVICE: Infectious disease. REASON FOR CONSULT: Diarrhea, rash. IMPRESSION: 1. Five days of rash, fever, liquid diarrhea, all of which are improving today. Suspect an enteritis or colitis as the primary diagnosis, which could be viral or bacterial including Campylobacter as pointed out by the medicine team. Salmonella is a consideration. 2. Chronic obstructive pulmonary disease with chronic respiratory failure, on supplemental oxygen at home. 3. History of non-Hodgkin's lymphoma. RECOMMENDATIONS: As she stopped having a bowel movement, we will stop the C. diff PCR. She is not having abdominal pain. If she does have another movement , we can send a stool culture. I suspect most likely we will not have an etiology for her symptoms and that overall she will continue to slowly improve. Most of those entities are self-limited as well. HISTORY OF PRESENT ILLNESS: This is a 68-year-old woman who over the weekend developed malaise, fever, liquid stools without abdominal pain, and then Saturday some rash, which was worse on her back, chest, and stomach. It has now spread to her arms and legs. She came to the hospital yesterday because of dehydration , weakness, could not get out of bed, and continued diarrhea. Her white count yesterday was 6.9. Her CRP was 120. Her creatinine was 2.4, up from a baseline of around 0.8 or 0.9. She has been able to produce a stool specimen. She had blood cultures sent that are pending. Today, she still has no abdominal pain. She has not had a bowel movement since yesterday. She is eating for the first time and overall feeling better, a little jittery after the IV steroid administration. PAST MEDICAL HISTORY: 1. COPD with supplemental oxygen at home. 2. Hypothyroidism. 3. Non-Hodgkin lymphoma. PAST SURGICAL HISTORY: 1. Status post right inguinal hernia repair as a child. 2. Status post tubal ligation. 3. Status post partial thyroidectomy. ALLERGIES: No known drug allergies. MEDICATIONS: 1. Tylenol. 2. Albuterol inhaler. 3. Aspirin. 4. Heparin subcutaneous injection. 5. Levothyroxine. 6. Methylprednisolone 40 mg IV every 8 hours. SOCIAL HISTORY: She lives in [place] with her relatives who have not had a diarrheal illness. She has had no travel. FAMILY HISTORY: Brother with [place] and diabetes. REVIEW OF SYSTEMS: All negative, except as noted above to a 14-point review. PHYSICAL EXAM: Vital Signs: Temperature 35.2, heart rate 60, respiratory rate 20, blood pressure 90/57, oxygen saturation 97% on 4 L by nasal cannula. In general, she is awake, but looks tired, not in distress. HEENT: There is no conjunctival hemorrhage. Oropharynx without lesions. Neck is supple without mass. Heart is regular rate and rhythm without murmurs, rubs, or gallops. Lungs are clear to auscultation bilaterally. Abdomen: Soft, nontender, nondistended. There are bowel sounds present. Skin: There are erythematous patches that are confluent on her back, blanching on her back and arms, not blanching on her lower extremities. Musculoskeletal: There is no spine tenderness to palpation or joint synovitis. LABORATORY DATA: Creatinine 2.4, BUN 52. White blood cell count 5, hemoglobin 11, platelets 113. Please see impression and recommendations outlined above. Thanks for asking me to see Ms. Sarmiento in consultation. [id number]/[facility] #: [id number] ELENA
--- NOTE | 2019-03-11 16:17 | PN ---
<Kay Underwood - Last Filed: 03/11/19 19:49> Subjective Date of Service: 03/11/19 Interval History: Patient presented with Shortness of breath, diarrhea and rash. She was found to have fever of 101.7. Today she had no diarrhea and no SOB. Rash is still there but no itching. She says she feels fine. Objective Active Medications: Acetaminophen (Tylenol Tab*) 650 mg PO Q4H PRN PRN Reason: FEVER/PAIN Albuterol/Ipratropium (Duoneb (Albuterol 2.5 Mg/Ipratropium 0.5 Mg)) 1 neb INH [id number] AWAKE PRN PRN Reason: sob/wheexing Aspirin (Aspirin Ec Tab*) 81 mg PO DAILY [facility] Last Admin: 03/11/19 09:45 Dose: 81 mg Heparin Sodium (Porcine) (Heparin Vial(*)) 5,000 units SUBCUT Q8HR [facility] Last Admin: 03/11/19 14:21 Dose: 5,000 units Sodium Chloride (Ns 0.9% 1000 Ml) 1,000 mls @ 125 mls/hr IV PER RATE [facility] Last Admin: 03/11/19 08:27 Dose: 125 mls/hr Levothyroxine Sodium (Synthroid Tab*) 100 mcg PO DAILY@0600 [facility] Last Admin: 03/11/19 05:51 Dose: 100 mcg Methylprednisolone Sodium Succinate (Solu-Medrol 40 Mg) 40 mg IV Q8H [facility] Last Admin: 03/11/19 14:20 Dose: 40 mg Vital Signs - 8 hr 03/11/19 03/11/19 03/11/19 10:04 13:37 15:16 Temperature 95.2 F 96.8 F Blood Pressure 98/40 (mmHg) Oxygen Devices in Use Now: Nasal Cannula Exam: Patient was sitting on a bed with nasal canula. HEENT: Normocephalic, Atraumatic. EYES PERRLA. Heart: Normal heart sound heard. Lungs: Normal vesicular sound with no any added sounds. Abdomen: Soft , nontender and bowel sound heard. Extremities: No any swelling. Skin: Erythematous patches on her back, arms and lower extremities. Nontender and blanchable. Tremors on b/l hand. Result Diagrams: 03/11/19 07:45 03/11/19 07:45 Additional Lab and Data: Lab Results 03/10/19 03/10/19 03/10/19 Range/Units 22:00 22:00 22:00 WBC 6.9 (3.5-10.8) 10^3/uL RBC 4.43 (3.70-4.87) 10^6 /uL Hgb 13.5 (12.0-16.0) g/dL Hct 40 (35-47) % MCV 90 (80-97) fL MCH 30 (27-31) pg MCHC 34 (31-36) g/dL RDW 14 (10-15) % Plt Count 142 L (150-450) 10^3/uL MPV 9.8 (7.4-10.4) fL Neut % (Auto) 88.1 % Lymph % (Auto) 7.7 % [place] % (Auto) 3.9 % Eos % (Auto) 0.1 % Baso % (Auto) 0.2 % Absolute Neuts (auto) 6.1 (1.5-7.7) 10^3/ul Absolute Lymphs (auto) 0.5 L (1.0-4.8) 10^3/ul Absolute Monos (auto) 0.3 (0-0.8) 10^3/ul Absolute Eos (auto) 0.0 (0-0.6) 10^3/ul Absolute Basos (auto) 0.0 (0-0.2) 10^3/ul Absolute Nucleated RBC 0.0 10^3/ul Nucleated RBC % 0.0 INR (Anticoag Therapy) 1.00 (0.82-1.09) APTT 33.3 (26.0-38.0) seconds ABG pH (7.35-7.45) ABG pCO2 (35-45) mmHg ABG pO2 (80-100) mmHg ABG HCO3 (19-31) mmol/L ABG O2 Saturation (94.0-98.0) % ABG Base Excess (-2.0-2.0) mmol/L Sodium 131 L (135-145) mmol/L Potassium 3.7 (3.5-5.0) mmol/L Chloride 94 L (101-111) mmol/L Carbon Dioxide 25 (22-32) mmol/L Anion Gap 12 H (2-11) mmol/L BUN 48 H (6-24) mg/dL Creatinine 2.41 H (0.51-0.95) mg/dL Est GFR ( Amer) 24.2 (>60) Est GFR (Non-Af Amer) 20.0 (>60) BUN/Creatinine Ratio 19.9 (8-20) Glucose 146 H (70-100) mg/dL Lactic Acid (0.5-2.0) mmol/L Calcium 9.1 (8.6-10.3) mg/dL Total Bilirubin 0.80 (0.2-1.0) mg/dL AST 246 H (13-39) U/L ALT 128 H (7-52) U/L Alkaline Phosphatase 87 (34-104) U/L Troponin I 0.09 H* (<0.04) ng/mL C-Reactive Protein 120.72 H (<8.01) mg/L B-Natriuretic Peptide (<=100) pg/mL Total Protein 7.2 (6.4-8.9) g/dL Albumin 3.7 (3.2-5.2) g/dL Globulin 3.5 (2-4) g/dL Albumin/Globulin Ratio 1.1 (1-3) 03/10/19 03/10/19 03/10/19 Range/Units 22:00 22:00 22:05 WBC (3.5-10.8) 10^3/uL RBC (3.70-4.87) 10^6 /uL Hgb (12.0-16.0) g/dL Hct (35-47) % MCV (80-97) fL MCH (27-31) pg MCHC (31-36) g/dL RDW (10-15) % Plt Count (150-450) 10^3/uL MPV (7.4-10.4) fL Neut % (Auto) % Lymph % (Auto) % [place] % (Auto) % Eos % (Auto) % Baso % (Auto) % Absolute Neuts (auto) (1.5-7.7) 10^3/ul Absolute Lymphs (auto) (1.0-4.8) 10^3/ul Absolute Monos (auto) (0-0.8) 10^3/ul Absolute Eos (auto) (0-0.6) 10^3/ul Absolute Basos (auto) (0-0.2) 10^3/ul Absolute Nucleated RBC 10^3/ul Nucleated RBC % INR (Anticoag Therapy) (0.82-1.09) APTT (26.0-38.0) seconds ABG pH 7.44 (7.35-7.45) ABG pCO2 34 L (35-45) mmHg ABG pO2 83 (80-100) mmHg ABG HCO3 24.5 (19-31) mmol/L ABG O2 Saturation 98.7 H (94.0-98.0) % ABG Base Excess -0.5 (-2.0-2.0) mmol/L Sodium (135-145) mmol/L Potassium (3.5-5.0) mmol/L Chloride (101-111) mmol/L Carbon Dioxide (22-32) mmol/L Anion Gap (2-11) mmol/L BUN (6-24) mg/dL Creatinine (0.51-0.95) mg/dL Est GFR ( Amer) (>60) Est GFR (Non-Af Amer) (>60) BUN/Creatinine Ratio (8-20) Glucose (70-100) mg/dL Lactic Acid 1.4 (0.5-2.0) mmol/L Calcium (8.6-10.3) mg/dL Total Bilirubin (0.2-1.0) mg/dL AST (13-39) U/L ALT (7-52) U/L Alkaline Phosphatase (34-104) U/L Troponin I (<0.04) ng/mL C-Reactive Protein (<8.01) mg/L B-Natriuretic Peptide 38 (<=100) pg/mL Total Protein (6.4-8.9) g/dL Albumin (3.2-5.2) g/dL Globulin (2-4) g/dL Albumin/Globulin Ratio (1-3) Assess/Plan/Problems-Billing Assessment: 68 y/o F with PMH of OXYGEN DEPENDENT COPD, Hypothyroidism(s/p partial thyroidectomy), NHL presented with SOB, Diarrhea for 3 days and rash for 1 day. Temperature was 102. Found to have elevated Troponin of 0.09 and after few hours 0.07(may be demand ischemia). Admitted with diagnosis of COPD exacerbation and Diarrhea(may be viral or c. jejuni). - Patient Problems (1) COPD with exacerbation Current Visit: Yes Status: Acute Code(s): J44.1 - CHRONIC OBSTRUCTIVE PULMONARY DISEASE W (ACUTE) EXACERBATION SNOMED Code(s): 234147831 Comment: Patient had SOB and wheezes during admission. Started on IV steriod and duoneb(as needed). (2) Diarrhea Current Visit: Yes Status: Acute Code(s): R19.7 - DIARRHEA, UNSPECIFIED SNOMED Code(s): 40803952 Comment: For 3 days. Improved now. May be viral or c. jejuni or c. difficle. Monitor for further symptom. (3) Rash Current Visit: Yes Status: Acute Code(s): R21 - RASH AND OTHER NONSPECIFIC SKIN ERUPTION SNOMED Code(s): 268070785 Comment: ALL over her back, trunk and extremities. May be just viral exanthem or c. jejuni. (4) DVT prophylaxis Current Visit: No Status: Acute Code(s): AQL5189 - SNOMED Code(s): 997230123 Comment: On heparin. (5) Full code status Current Visit: No Status: Acute Code(s): Z78.9 - OTHER SPECIFIED HEALTH STATUS SNOMED Code(s): 535064084 Status and Disposition: Medicine inpatient. Attending: Leny Aguilera <Leny Aguilera - Last Filed: 03/12/19 16:43> Objective Active Medications: Acetaminophen (Tylenol Tab*) 650 mg PO Q4H PRN PRN Reason: FEVER/PAIN Albuterol/Ipratropium (Duoneb (Albuterol 2.5 Mg/Ipratropium 0.5 Mg)) 1 neb INH [id number] AWAKE PRN PRN Reason: sob/wheexing Aspirin (Aspirin Ec Tab*) 81 mg PO DAILY [facility] Last Admin: 03/12/19 07:48 Dose: 81 mg Heparin Sodium (Porcine) (Heparin Vial(*)) 5,000 units SUBCUT Q8HR [facility] Last Admin: 03/12/19 13:42 Dose: Not Given Sodium Chloride (Ns 0.9% 1000 Ml) 1,000 mls @ 125 mls/hr IV PER RATE [facility] Last Admin: 03/12/19 04:17 Dose: 125 mls/hr Levothyroxine Sodium (Synthroid Tab*) 75 mcg PO DAILY@0600 [facility] Prednisone (Deltasone Tab*) 40 mg PO DAILY [facility] Stop: 03/15/19 09:01 Last Admin: 03/12/19 10:03 Dose: 40 mg Vital Signs - 8 hr 03/12/19 03/12/19 03/12/19 08:48 08:53 11:15 Temperature 97.7 F 97.8 F Pulse Rate 68 66 Respiratory 20 18 18 Rate Blood Pressure 118/54 110/54 (mmHg) O2 Sat by Pulse 98 98 Oximetry 03/12/19 15:25 Temperature 97.7 F Pulse Rate 70 Respiratory 20 Rate Blood Pressure 106/58 (mmHg) O2 Sat by Pulse 97 Oximetry Result Diagrams: 03/11/19 07:45 03/12/19 06:26 Assess/Plan/Problems-Billing Admitted overnight. No BM since entering the hospital. SOB resolved. Rash unchanged and not pruritic or painful. Appetite is back and she denies abd pain. vss, SaO2 98% on 2L well appearing, alert and interactive w family members no increased WOB sclera anicteric dry mm ctab rrr no mgr soft nontender no LE edema skin with blanching erythematous confluent patches over trunk, with macular blanching nonpalpable rash over extremities; palms clear A/P 68W with COPD on home O2, hypothyroid, non-Hodgkin's lymphoma, presents with SOB , diarrhea, and rash, found with acute renal failure, likely from hypovolemia in setting of poor PO and diarrhea. No other significant lab abnormalities, CXR normal, SOB quickly resolved after one dose of steroids. No BMs in hospital. # Diarrhea and rash. Possible etiologies include salmonella or campylobacter enteritis vs viral [place]. No BMs since entering hospital. Appetite returned without intervention. - continue to monitor - appreciate ID input # COPD exacerbation. Unclear etiology, but symptoms resolved rapidly with IV steroids. No fever, leukocytosis. CXR without consolidation. - cont prednisone burst - nebulizers as needed - contacted pt's synoptic meteorologist for her clinic team to figure out which LABA vs LAMA is covered by patient's insurance - SaO2 goal 88-92% # YAJAIRA, likely from hypovolemia in setting of poor PO and diarrhea. s/p 3L on admission - cont IVF until taking in good PO - cont to monitor # Hypothyroid - cont home levothyroxine
[2019-03-12] MEDS: NS 0.9% 1000 ML** 1,000 ML IV SCH ×2 (04:17→16:38)
[2019-03-12] MEDS: Levothyroxine TAB* 100 MCG TAB PO SCH (05:13)
[2019-03-12] MEDS: Heparin VIAL(*) 5000 UNITS/ML VIAL (FIVE THOUSAND) SUBCUT SCH ×3 (05:15→20:26)
[2019-03-12] MEDS: methylPREDNISolone SOD 40 MG* 1 ML VIAL IV SCH (05:15)
[2019-03-12 07:25] LABS: TSH (Thyroid Stimulating Horm) 0.29 mcIU/mL (0.34-5.60)
[2019-03-12] MEDS: Aspirin EC TAB* 81 MG TAB.EC PO SCH (07:48)
[2019-03-12] MEDS: predniSONE TAB* 20 MG PO SCH (10:03)
[2019-03-12 10:12] LABS: BUN/Creatinine Ratio 24.3 (8-20); Calcium 8.3 mg/dL (8.6-10.3); EGFR African American 23.6 (>60); EGFR Non-African American 19.5 (>60); Magnesium 2.4 mg/dL (1.9-2.7)
[2019-03-12] MEDS: NS 0.9% 1000 ML** 2,000 ML IV ONE ×2 (11:29→13:42)
[2019-03-12 16:08] LABS: BUN/Creatinine Ratio 24.7 (8-20); Calcium 7.9 mg/dL (8.6-10.3); EGFR Non-African American 20.6 (>60)
--- NOTE | 2019-03-12 17:35 | PN ---
<Kay Underwood - Last Filed: 03/12/19 17:29> Subjective Date of Service: 03/12/19 Interval History: Patient doesnot have any complain. SHe has good appetite and no diarrhea and SOB. Her iv steroid was discontinued because she declined it(made her see abnormal things around her). Changed to oral predisone. Objective Active Medications: Acetaminophen (Tylenol Tab*) 650 mg PO Q4H PRN PRN Reason: FEVER/PAIN Albuterol/Ipratropium (Duoneb (Albuterol 2.5 Mg/Ipratropium 0.5 Mg)) 1 neb INH [id number] AWAKE PRN PRN Reason: sob/wheexing Aspirin (Aspirin Ec Tab*) 81 mg PO DAILY [facility] Last Admin: 03/12/19 07:48 Dose: 81 mg Heparin Sodium (Porcine) (Heparin Vial(*)) 5,000 units SUBCUT Q8HR [facility] Last Admin: 03/12/19 13:42 Dose: Not Given Sodium Chloride (Ns 0.9% 1000 Ml) 1,000 mls @ 125 mls/hr IV PER RATE [facility] Last Admin: 03/12/19 16:38 Dose: 125 mls/hr Levothyroxine Sodium (Synthroid Tab*) 75 mcg PO DAILY@0600 [facility] Prednisone (Deltasone Tab*) 40 mg PO DAILY [facility] Stop: 03/15/19 09:01 Last Admin: 03/12/19 10:03 Dose: 40 mg Vital Signs - 8 hr 03/12/19 03/12/19 11:15 15:25 Temperature 97.8 F 97.7 F Pulse Rate 66 70 Respiratory 18 20 Rate Blood Pressure 110/54 106/58 (mmHg) O2 Sat by Pulse 98 97 Oximetry Oxygen Devices in Use Now: Nasal Cannula Exam: Patient was sitting on a bed with nasal canula. HEENT: Normocephalic, Atraumatic. EYES PERRLA. Heart: Normal heart sound heard. Lungs: Normal vesicular sound with no any added sounds. Abdomen: Soft , nontender and bowel sound heard. Extremities: No any swelling. Skin: Erythematous patches on her back, abdomen, arms and lower extremities. Nontender and blanchable. Tremors on b/l hand. Result Diagrams: 03/11/19 07:45 03/12/19 15:22 Additional Lab and Data: Lab Results 03/10/19 03/10/19 03/10/19 Range/Units 22:00 22:00 22:00 WBC 6.9 (3.5-10.8) 10^3/uL RBC 4.43 (3.70-4.87) 10^6 /uL Hgb 13.5 (12.0-16.0) g/dL Hct 40 (35-47) % MCV 90 (80-97) fL MCH 30 (27-31) pg MCHC 34 (31-36) g/dL RDW 14 (10-15) % Plt Count 142 L (150-450) 10^3/uL MPV 9.8 (7.4-10.4) fL Neut % (Auto) 88.1 % Lymph % (Auto) 7.7 % Mcclain % (Auto) 3.9 % Eos % (Auto) 0.1 % Baso % (Auto) 0.2 % Absolute Neuts (auto) 6.1 (1.5-7.7) 10^3/ul Absolute Lymphs (auto) 0.5 L (1.0-4.8) 10^3/ul Absolute Monos (auto) 0.3 (0-0.8) 10^3/ul Absolute Eos (auto) 0.0 (0-0.6) 10^3/ul Absolute Basos (auto) 0.0 (0-0.2) 10^3/ul Absolute Nucleated RBC 0.0 10^3/ul Nucleated RBC % 0.0 INR (Anticoag Therapy) 1.00 (0.82-1.09) APTT 33.3 (26.0-38.0) seconds ABG pH (7.35-7.45) ABG pCO2 (35-45) mmHg ABG pO2 (80-100) mmHg ABG HCO3 (19-31) mmol/L ABG O2 Saturation (94.0-98.0) % ABG Base Excess (-2.0-2.0) mmol/L Sodium 131 L (135-145) mmol/L Potassium 3.7 (3.5-5.0) mmol/L Chloride 94 L (101-111) mmol/L Carbon Dioxide 25 (22-32) mmol/L Anion Gap 12 H (2-11) mmol/L BUN 48 H (6-24) mg/dL Creatinine 2.41 H (0.51-0.95) mg/dL Est GFR ( Amer) 24.2 (>60) Est GFR (Non-Af Amer) 20.0 (>60) BUN/Creatinine Ratio 19.9 (8-20) Glucose 146 H (70-100) mg/dL Lactic Acid (0.5-2.0) mmol/L Calcium 9.1 (8.6-10.3) mg/dL Total Bilirubin 0.80 (0.2-1.0) mg/dL AST 246 H (13-39) U/L ALT 128 H (7-52) U/L Alkaline Phosphatase 87 (34-104) U/L Troponin I 0.09 H* (<0.04) ng/mL C-Reactive Protein 120.72 H (<8.01) mg/L B-Natriuretic Peptide (<=100) pg/mL Total Protein 7.2 (6.4-8.9) g/dL Albumin 3.7 (3.2-5.2) g/dL Globulin 3.5 (2-4) g/dL Albumin/Globulin Ratio 1.1 (1-3) 03/10/19 03/10/19 03/10/19 Range/Units 22:00 22:00 22:05 WBC (3.5-10.8) 10^3/uL RBC (3.70-4.87) 10^6 /uL Hgb (12.0-16.0) g/dL Hct (35-47) % MCV (80-97) fL MCH (27-31) pg MCHC (31-36) g/dL RDW (10-15) % Plt Count (150-450) 10^3/uL MPV (7.4-10.4) fL Neut % (Auto) % Lymph % (Auto) % Mcclain % (Auto) % Eos % (Auto) % Baso % (Auto) % Absolute Neuts (auto) (1.5-7.7) 10^3/ul Absolute Lymphs (auto) (1.0-4.8) 10^3/ul Absolute Monos (auto) (0-0.8) 10^3/ul Absolute Eos (auto) (0-0.6) 10^3/ul Absolute Basos (auto) (0-0.2) 10^3/ul Absolute Nucleated RBC 10^3/ul Nucleated RBC % INR (Anticoag Therapy) (0.82-1.09) APTT (26.0-38.0) seconds ABG pH 7.44 (7.35-7.45) ABG pCO2 34 L (35-45) mmHg ABG pO2 83 (80-100) mmHg ABG HCO3 24.5 (19-31) mmol/L ABG O2 Saturation 98.7 H (94.0-98.0) % ABG Base Excess -0.5 (-2.0-2.0) mmol/L Sodium (135-145) mmol/L Potassium (3.5-5.0) mmol/L Chloride (101-111) mmol/L Carbon Dioxide (22-32) mmol/L Anion Gap (2-11) mmol/L BUN (6-24) mg/dL Creatinine (0.51-0.95) mg/dL Est GFR ( Amer) (>60) Est GFR (Non-Af Amer) (>60) BUN/Creatinine Ratio (8-20) Glucose (70-100) mg/dL Lactic Acid 1.4 (0.5-2.0) mmol/L Calcium (8.6-10.3) mg/dL Total Bilirubin (0.2-1.0) mg/dL AST (13-39) U/L ALT (7-52) U/L Alkaline Phosphatase (34-104) U/L Troponin I (<0.04) ng/mL C-Reactive Protein (<8.01) mg/L B-Natriuretic Peptide 38 (<=100) pg/mL Total Protein (6.4-8.9) g/dL Albumin (3.2-5.2) g/dL Globulin (2-4) g/dL Albumin/Globulin Ratio (1-3) Assess/Plan/Problems-Billing Admitted overnight. No BM since entering the hospital. SOB resolved. Rash unchanged and not pruritic or painful. Appetite is back and she denies abd pain. 68W with COPD on home O2, hypothyroid, non-Hodgkin's lymphoma, presents with SOB , diarrhea, and rash, found with acute renal failure, likely from hypovolemia in setting of poor PO and diarrhea. CXR normal, SOB quickly resolved after one dose of steroids. Creatinine 2.45. - Patient Problems (1) COPD with exacerbation Current Visit: Yes Status: Acute Code(s): J44.1 - CHRONIC OBSTRUCTIVE PULMONARY DISEASE W (ACUTE) EXACERBATION SNOMED Code(s): 583047162 Comment: Patient had SOB and wheezes during admission. Started on IV steriod and duoneb(as needed). Her iv steroid changed to oral. Continue prednisone burst. Target SaO2- 88-92%; titrate o2 accordingly. (2) Diarrhea Current Visit: Yes Status: Acute Code(s): R19.7 - DIARRHEA, UNSPECIFIED SNOMED Code(s): 97662963 Comment: For 3 days. Improved now. May be viral or c. jejuni or salmonella. Monitor for further symptom. (3) Rash Current Visit: Yes Status: Acute Code(s): R21 - RASH AND OTHER NONSPECIFIC SKIN ERUPTION SNOMED Code(s): 545203982 Comment: ALL over her back, trunk and extremities. May be just viral exanthem or c. jejuni or salmonella. (4) Hypothyroid Current Visit: No Status: Acute Code(s): E03.9 - HYPOTHYROIDISM, UNSPECIFIED SNOMED Code(s): 80456749 Comment: TSH was low so dose decreased to 75 mCG. Follow up TFT in 4 weeks. (5) DVT prophylaxis Current Visit: No Status: Acute Code(s): DUR5041 - SNOMED Code(s): 009304491 Comment: On heparin. (6) Full code status Current Visit: No Status: Acute Code(s): Z78.9 - OTHER SPECIFIED HEALTH STATUS SNOMED Code(s): 643883291 Status and Disposition: Medicine inpatient. Attending: Leny Aguilera <Leny Aguilera - Last Filed: 03/12/19 17:58> Objective Active Medications: Acetaminophen (Tylenol Tab*) 650 mg PO Q4H PRN PRN Reason: FEVER/PAIN Albuterol/Ipratropium (Duoneb (Albuterol 2.5 Mg/Ipratropium 0.5 Mg)) 1 neb INH [id number] AWAKE PRN PRN Reason: sob/wheexing Aspirin (Aspirin Ec Tab*) 81 mg PO DAILY [facility] Last Admin: 03/12/19 07:48 Dose: 81 mg Heparin Sodium (Porcine) (Heparin Vial(*)) 5,000 units SUBCUT Q8HR [facility] Last Admin: 03/12/19 13:42 Dose: Not Given Sodium Chloride (Ns 0.9% 1000 Ml) 1,000 mls @ 125 mls/hr IV PER RATE [facility] Last Admin: 03/12/19 16:38 Dose: 125 mls/hr Levothyroxine Sodium (Synthroid Tab*) 75 mcg PO DAILY@0600 [facility] Prednisone (Deltasone Tab*) 40 mg PO DAILY [facility] Stop: 03/15/19 09:01 Last Admin: 03/12/19 10:03 Dose: 40 mg Vital Signs - 8 hr 03/12/19 03/12/19 11:15 15:25 Temperature 97.8 F 97.7 F Pulse Rate 66 70 Respiratory 18 20 Rate Blood Pressure 110/54 106/58 (mmHg) O2 Sat by Pulse 98 97 Oximetry Result Diagrams: 03/11/19 07:45 03/12/19 15:22 Assess/Plan/Problems-Billing Patient reports she feels back to her baseline. She did not like IV steroids because she may have hallucinated on them. Feels thirsty and reports still with little urine. vss, SaO2 98% on 4L well appearing, alert and interactive dry mm axilla dry ctab rrr no mgr soft nontender no LE edema skin with blanching erythematous confluent patches over trunk, with macular blanching nonpalpable rash over extremities; palms clear A/P 68W with COPD on home O2, hypothyroid, non-Hodgkin's lymphoma, presents with SOB , diarrhea, and rash, found with acute renal failure, likely from hypovolemia in setting of poor PO and diarrhea. No other significant lab abnormalities, CXR normal, SOB quickly resolved after one dose of steroids. No BMs in hospital. # YAJAIRA, likely from hypovolemia in setting of poor PO and diarrhea. s/p 3L on admission. Still dry on exam. - cont IVF until taking in good PO, give 2 L bolus today - cont to monitor # COPD exacerbation. Unclear etiology, but symptoms resolved rapidly with IV steroids. No fever, leukocytosis. CXR without consolidation. - cont prednisone burst - nebulizers as needed - contacted pt's can coverer for her clinic team to figure out which LABA vs LAMA is covered by patient's insurance - SaO2 goal 88-92% # Diarrhea and rash. Possible etiologies include salmonella or campylobacter enteritis vs viral ex[place]ham. No BMs since entering hospital. Appetite returned without intervention. - continue to monitor - appreciate ID input # Hypothyroid - reduce home levothyroxine dose to 75mcg - f/u TSH in 6 weeks (early Apr) Attestation Documenting Resident: Kj Supervising Physician: Ale Attestation: This service has been performed in part by a resident under the direction of a teaching physician.IAle, performed the service, or was physically present during the critical, or cuello portions of the service, furnished by the resident. I participated in the management of the patient.
--- NOTE | 2019-03-12 20:15 | CONS ---
CONSULTATION REPORT: DATE OF CONSULT: 03/12/19 CONSULTING PHYSICIAN: Dr. Willoughby. REASON FOR CONSULTATION: Bradycardia. HISTORY OF PRESENT ILLNESS: This is a 68-year-old with oxygen dependent COPD and possible hyperlipidemia with usual state of health until last weekend. She said that on Saturday she went to [employer] and went out to a movie and then was going to make a barbeque on Saturday. She cooked her own food, but had no appetite and did not eat and then she started developing diarrhea. She also had some sweats. On Saturday, she developed a rash and because of watery diarrhea and rash, she decided to come to the emergency room. She was admitted and then worked up for possible infectious diarrhea. She was seen by ID and has been treated with antibiotics and steroids for a possible COPD exacerbation. She reports that she has had no diarrhea since Saturday and is feeling better and her rash seems to be improving. She denies syncope or near syncope, no orthopnea, no peripheral edema. Today, she was noted to have episodes of sinus bradycardia and drop beats raising the possibility of second degree AV block, possible atypical Wenckebach or type 2 second degree AV block. The amount of NH prolongation was somewhat minimal in some of the events. One occurred at 8:12 a.m. today, one occurred at 13:03 and one occurred at 2:20 a.m. There was sinus slowing into the 40s with some of these events. She claims that she was sitting and eating at the 1 o'clock episode. She denies any syncope or near syncope. She says she normally can walk some distance. She went to [employer] and walked a steep hill in the heat. She was very short of breath and it is unusual for, but normally she can go to the [employer] and walk. She carries her oxygen with her. She denies rheumatic fever, rheumatic heart disease, and coronary disease. PAST MEDICAL HISTORY: She has a history of COPD, oxygen dependent; hypothyroidism; non-Hodgkin's lymphoma; right inguinal hernia repair as a child ; tubal ligation; partial thyroidectomy with subsequent hypothyroidism. MEDICATIONS AT HOME: Include aspirin and Synthroid as an inpatient. She is on acetaminophen albuterol, aspirin, heparin, levothyroxine 75 mcg a day, heparin 5000 units q.8 subcu, prednisone 40 mg a day, sodium chloride 125 mL an hour. Of note, she was also noted to have elevated creatinine this admission at 2.41. On 03/03/19 that had been normal at 0.9. She also had an elevated troponin. This is at 0.09 on admission and 0.07 on the 03/11/19. ALLERGIES: She has no known drug allergies. FAMILY HISTORY: Includes father in an MVA at age 32, mother who is alive in a shelter at 89 with diabetes and possible coronary disease and she had a brother who of cancer. SOCIAL HISTORY: She is , lives alone. She has 2 daughters. She drinks 1 tea a day. She has rare alcohol. 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 She reports she smoked a pack per day for 50 to 55 years until a year ago. REVIEW OF SYSTEMS: Review of systems x10 was negative, except as above. PHYSICAL EXAM: She is a well-developed, well-nourished female, obese, in no apparent distress. Temperature 97.7, pulse is 70, blood pressure is 106/58. Atraumatic, normocephalic, extraocular muscles intact, sclerae anicteric. No significant JVD. Carotids 2+ without bruits. Cardiac Exam: S1 and S2. No murmurs, gallops, or rubs. Chest: Clear with decreased breath sounds, prolonged expiratory phase. No CVAT. Abdomen: Obese, bowel sounds present, nontender. Femoral pulses intact with a bruit. Distal pulses intact. No edema. Motor strength 5/5 bilaterally. Deep tendon reflexes 2/4. She is alert and oriented x3 and she had a diffuse maculopapular rash over the legs and more confluent over her trunk. DIAGNOSTIC STUDIES/LAB DATA: Include sodium 138, potassium 4, BUN 58, creatinine 2.35, magnesium 2.4, troponin 0.07 yesterday. CRP of 120 on . Cholesterol of 243 on 03/03/19. LDL of 153 and triglycerides 281. TSH low at 0.29 on 03/12/19. Her EKG revealed sinus rhythm at 67 with left anterior hemiblock and right bundle branch block, nonspecific T-wave changes and EKG is similar to May 2018. IMPRESSION: My impression is that Ms. Sarmiento has sinus bradycardia and pauses of unclear etiology, perhaps second degree AV block, either atypical Wenckebach or even possibly second degree block. She is asymptomatic. I did explain to her that this may represent underlying conduction system disease that could progress potentially in years to come. She also had an elevated troponin of unclear etiology in the setting of possible dehydration and sepsis. For the time being, I have recommended the followin. I suggest an echo to evaluate her LV function. 2. I Suggested a stress test to evaluate for ischemia. 3. I would consider the possibility of Lyme disease given her [place]. 4. If she remains asymptomatic and does not have pauses clearly indicating the need for pacemaker, I would consider an event monitor to observe for more pronounced bradycardia or pauses that would indicate the need for pacemaker. 5. bit tapper weight reduction and regular amount of exercise would be advised. Prognosis is guarded given her severe COPD. [id number]/[facility] #: [id number] ELENA
[2019-03-13] MEDS: NS 0.9% 1000 ML** 1,000 ML IV SCH (03:07)
[2019-03-13] MEDS: Heparin VIAL(*) 5000 UNITS/ML VIAL (FIVE THOUSAND) SUBCUT SCH ×3 (05:17→19:59)
[2019-03-13] MEDS: Levothyroxine TAB* 75 MCG TAB PO SCH (05:18)
[2019-03-13 06:41] LABS: BUN/Creatinine Ratio 23.9 (8-20); Calcium 8.1 mg/dL (8.6-10.3); EGFR African American 26.7 (>60); Potassium 3.8 mmol/L (3.5-5.0)
[2019-03-13] MEDS: Aspirin EC TAB* 81 MG TAB.EC PO SCH (08:05)
[2019-03-13] MEDS: predniSONE TAB* 20 MG PO SCH (08:05)
[2019-03-13] MEDS ORDERED: Perflutren Lipid Microsphere* 3 ML VIAL ONE (08:39)
[2019-03-13] MEDS ORDERED: Regadenoson* 0.4 MG/5 ML SYRINGE ONE (10:47)
[2019-03-13] MEDS ORDERED: Aminophylline IV* 25 MG/ML 10 ML VIAL ONE (10:47)
[2019-03-13] MEDS ORDERED: Atropine SYRINGE* 0.1 MG/ML 10 ML SYRINGE (1 MG) ONE (10:53)
[2019-03-13 11:41] LABS: Troponin I 0.07 ng/mL (<0.04)
--- NOTE | 2019-03-13 13:58 | ECHO ---
*[facility]* [place] [address] Fax #: [phone] Transthoracic Echocardiogram Patient: Mehreen Sarmiento : 1950 Study Date: 03/13/2019 Age: 68 Gender: F HR: 84 bpm Height: 67 in /170.2 cm BSA: 2.13 m^2 Weight: 226.5 lb /103 kg BMI: 35.6 kg/m^2 *Field Training Agent: * Kristin Way RDCS RN *Referring Physician: * Heri Beltran MD *Reading Physician: * Heri Beltran MD Indications: SOB. Abnormal EKG. History: Chronic obstructive pulmonary disease. Non-Hodgkins lymphoma. Hypothyroidism. Risk factors: Obese. Dyslipidemia. Conclusions Summary: - Impressions: The study is unchanged since the study of May 2018. - Left ventricle: The cavity size is normal. Wall thickness is mildly increased. Systolic function is normal. The estimated ejection fraction is 65-70%. - Right ventricle: The cavity size is normal. Wall thickness is moderately increased. - Mitral valve: There is trace regurgitation. - Aortic valve: The leaflets are mildly thickened. There is trace to mild regurgitation. - Tricuspid valve: There is trace regurgitation. Study data: Transthoracic echocardiogram. Procedure: Transthoracic echocardiography was performed. Image quality was fair. The study was technically limited due to body habitus and COPD. Intravenous Definity 2 ml was administered for image enhancement. Complete 2D, spectral Doppler, and color flow Doppler. Location: Bedside. Patient status: Inpatient. Patient room number: 443-01. The previous study was not available, so comparison is made to the report of May 2018. Rhythm: Normal sinus rhythm. Findings Left ventricle: The cavity size is normal. Wall thickness is mildly increased. Systolic function is normal. The estimated ejection fraction is 65-70%. Wall motion is normal; there are no regional wall motion abnormalities. Left ventricular diastolic function parameters are indeterminate. Right ventricle: The cavity size is normal. Wall thickness is moderately increased. Systolic function is normal. Left atrium: The atrium is normal in size. Right atrium: The atrium is normal in size. Mitral valve: The leaflets are mildly thickened. There is no evidence of stenosis. There is trace regurgitation. Aortic valve: Not well visualized. The leaflets are mildly thickened. There is no evidence of stenosis. There is trace to mild regurgitation. Tricuspid valve: Not well visualized. There is trace regurgitation. Pulmonic valve: Not well visualized. There is no evidence of stenosis. There is trace regurgitation. Aorta: Aortic root: The aortic root is not dilated. Ascending aorta: The ascending aorta is not dilated. Aortic arch: The aortic arch is not dilated. Pericardium: There is no pericardial effusion. Pulmonary arteries: Not well visualized. Systolic pressure can not be accurately estimated. Systemic veins: Not well visualized. Measurements Left ventricle Value Ref Right atrium Value Ref CHRISTIANNE, LAX 4.6 cm 3.8 - 5.2 ML dim, ES, A4C 3.3 cm 2.6 - 4.4 ESD, LAX 3.1 cm 2.2 - 3.5 SI dim, ES, A4C (H) 5.7 cm 3.4 - 5.3 FS, LAX 33 % 27 - 45 PW, ED (H) 1.1 cm 0.6 - 0.9 Aortic valve Value Ref IVS/PW, ED 1.01 Fe diam, ED 2.2 cm --------- E', lat fe, TDI (L) 9.1 cm/sec >=10.0 Fe diam/bsa, ED 1.0 cm/m^2 -- ------- E/e', lat fe, 12 Peak v, S 1.9 m/sec ----- ---- TDI VTI, S 34.8 cm --------- E', med fe, TDI 10.3 cm/sec >=7.0 Mean grad, S 7.0 mm Hg -- ------- E/e', med fe, 11 Peak grad, S 14.0 mm Hg ----- ---- TDI LVOT/AV, VTI ratio 0.73 --------- E', avg, TDI 9.7 cm/sec MEGGAN, VTI 2.78 cm^2 ----- ---- E/e', avg, TDI 12 <=14 MEGGAN, Vmax 2.80 cm^2 -- ------- LVOT Value Ref Mitral valve Value Ref Diam, S 2.20 cm Peak E 1.12 m/sec --------- Area 3.8 cm^2 Peak A 1.02 m/sec --------- Peak erik, S 1.4 m/sec Decel time 264 ms --------- VTI, S 25.5 cm Peak grad, D 5.0 mm Hg --------- Peak grad, S 8 mm Hg Peak E/A ratio 1.1 --------- Mean grad, S 5 mm Hg SV 97 ml Pulmonic valve Value Ref SV/bsa 46 ml/m^2 Peak v, S 0.9 m/sec --------- Peak grad, S 3.0 mm Hg --------- Ventricular septum Value Ref IVS, ED (H) 1.1 cm 0.6 - 0.9 Aortic root Value Ref Root diam 3.2 cm <4.2 Right ventricle Value Ref AW thickness, ED (H) 0.9 cm 0.1 - 0.5 Ascending aorta Value Ref CHRISTIANNE, LAX 2.6 cm AAo AP diam, S 3.4 cm --------- CHRISTIANNE minor ax, 3.2 cm 1.9 - 3.5 A4C mid Aortic arch Value Ref Arch diam 2.9 cm --------- Left atrium Value Ref AP dim, ES 3.40 cm 2.70 - Decending aorta Value Ref 3.80 Pricila peak erik 0.4 m/sec --------- ML dim, A4C 3.9 cm SI dim, A4C 6.0 cm Vol/bsa, ES, 1-p 18 ml/m^2 11 - 40 A4C Vol/bsa, ES, A/L 20 ml/m^2 16 - 34 Legend: (L) and (H) elis values outside specified reference range. Prepared and electronically signed by Heri Beltran MD 03/13/2019 13:58
--- NOTE | 2019-03-13 16:40 | PN ---
<Kay Underwood - Last Filed: 03/13/19 16:35> Subjective Date of Service: 03/13/19 Interval History: Patient has no any fresh complaint. She had one bowel movement today. No any fever, SOB, light headedness or feeling passing out. She has dropped beats on telemetry; on and off but asymptomatic. Cardiology consulted- recommended echo, stress test and lyme antibody. No any significant findings in echo and stress test. Lyme antibody negative. Has advised for pacemaker given her frequent dropped beats. Objective Active Medications: Acetaminophen (Tylenol Tab*) 650 mg PO Q4H PRN PRN Reason: FEVER/PAIN Albuterol/Ipratropium (Duoneb (Albuterol 2.5 Mg/Ipratropium 0.5 Mg)) 1 neb INH [id number] AWAKE PRN PRN Reason: sob/wheexing Aspirin (Aspirin Ec Tab*) 81 mg PO DAILY [facility] Last Admin: 03/13/19 08:05 Dose: 81 mg Heparin Sodium (Porcine) (Heparin Vial(*)) 5,000 units SUBCUT Q8HR [facility] Last Admin: 03/13/19 13:41 Dose: Not Given Levothyroxine Sodium (Synthroid Tab*) 75 mcg PO DAILY@0600 [facility] Last Admin: 03/13/19 05:18 Dose: 75 mcg Prednisone (Deltasone Tab*) 40 mg PO DAILY [facility] Stop: 03/15/19 09:01 Last Admin: 03/13/19 08:05 Dose: 40 mg Vital Signs - 8 hr 03/13/19 03/13/19 12:21 15:20 Temperature 98.2 F 97.2 F Pulse Rate 85 70 Respiratory 18 20 Rate Blood Pressure 134/77 100/55 (mmHg) O2 Sat by Pulse 95 96 Oximetry Oxygen Devices in Use Now: Nasal Cannula Exam: Patient was sitting on a bed with nasal canula. HEENT: Normocephalic, Atraumatic. EYES PERRLA. Heart: Normal heart sound heard. Lungs: Normal vesicular sound with no any added sounds. Abdomen: Soft , nontender and bowel sound heard. Extremities: No any swelling. Skin: Erythematous patches on her back, abdomen, arms and lower extremities. Nontender and blanchable and is decreasing. Tremors on b/l hand. Result Diagrams: 03/11/19 07:45 03/13/19 06:02 Additional Lab and Data: Lab Results 03/10/19 03/10/19 03/10/19 Range/Units 22:00 22:00 22:00 WBC 6.9 (3.5-10.8) 10^3/uL RBC 4.43 (3.70-4.87) 10^6 /uL Hgb 13.5 (12.0-16.0) g/dL Hct 40 (35-47) % MCV 90 (80-97) fL MCH 30 (27-31) pg MCHC 34 (31-36) g/dL RDW 14 (10-15) % Plt Count 142 L (150-450) 10^3/uL MPV 9.8 (7.4-10.4) fL Neut % (Auto) 88.1 % Lymph % (Auto) 7.7 % [place] % (Auto) 3.9 % Eos % (Auto) 0.1 % Baso % (Auto) 0.2 % Absolute Neuts (auto) 6.1 (1.5-7.7) 10^3/ul Absolute Lymphs (auto) 0.5 L (1.0-4.8) 10^3/ul Absolute Monos (auto) 0.3 (0-0.8) 10^3/ul Absolute Eos (auto) 0.0 (0-0.6) 10^3/ul Absolute Basos (auto) 0.0 (0-0.2) 10^3/ul Absolute Nucleated RBC 0.0 10^3/ul Nucleated RBC % 0.0 INR (Anticoag Therapy) 1.00 (0.82-1.09) APTT 33.3 (26.0-38.0) seconds ABG pH (7.35-7.45) ABG pCO2 (35-45) mmHg ABG pO2 (80-100) mmHg ABG HCO3 (19-31) mmol/L ABG O2 Saturation (94.0-98.0) % ABG Base Excess (-2.0-2.0) mmol/L Sodium 131 L (135-145) mmol/L Potassium 3.7 (3.5-5.0) mmol/L Chloride 94 L (101-111) mmol/L Carbon Dioxide 25 (22-32) mmol/L Anion Gap 12 H (2-11) mmol/L BUN 48 H (6-24) mg/dL Creatinine 2.41 H (0.51-0.95) mg/dL Est GFR ( Amer) 24.2 (>60) Est GFR (Non-Af Amer) 20.0 (>60) BUN/Creatinine Ratio 19.9 (8-20) Glucose 146 H (70-100) mg/dL Lactic Acid (0.5-2.0) mmol/L Calcium 9.1 (8.6-10.3) mg/dL Total Bilirubin 0.80 (0.2-1.0) mg/dL AST 246 H (13-39) U/L ALT 128 H (7-52) U/L Alkaline Phosphatase 87 (34-104) U/L Troponin I 0.09 H* (<0.04) ng/mL C-Reactive Protein 120.72 H (<8.01) mg/L B-Natriuretic Peptide (<=100) pg/mL Total Protein 7.2 (6.4-8.9) g/dL Albumin 3.7 (3.2-5.2) g/dL Globulin 3.5 (2-4) g/dL Albumin/Globulin Ratio 1.1 (1-3) 03/10/19 03/10/19 03/10/19 Range/Units 22:00 22:00 22:05 WBC (3.5-10.8) 10^3/uL RBC (3.70-4.87) 10^6 /uL Hgb (12.0-16.0) g/dL Hct (35-47) % MCV (80-97) fL MCH (27-31) pg MCHC (31-36) g/dL RDW (10-15) % Plt Count (150-450) 10^3/uL MPV (7.4-10.4) fL Neut % (Auto) % Lymph % (Auto) % [place] % (Auto) % Eos % (Auto) % Baso % (Auto) % Absolute Neuts (auto) (1.5-7.7) 10^3/ul Absolute Lymphs (auto) (1.0-4.8) 10^3/ul Absolute Monos (auto) (0-0.8) 10^3/ul Absolute Eos (auto) (0-0.6) 10^3/ul Absolute Basos (auto) (0-0.2) 10^3/ul Absolute Nucleated RBC 10^3/ul Nucleated RBC % INR (Anticoag Therapy) (0.82-1.09) APTT (26.0-38.0) seconds ABG pH 7.44 (7.35-7.45) ABG pCO2 34 L (35-45) mmHg ABG pO2 83 (80-100) mmHg ABG HCO3 24.5 (19-31) mmol/L ABG O2 Saturation 98.7 H (94.0-98.0) % ABG Base Excess -0.5 (-2.0-2.0) mmol/L Sodium (135-145) mmol/L Potassium (3.5-5.0) mmol/L Chloride (101-111) mmol/L Carbon Dioxide (22-32) mmol/L Anion Gap (2-11) mmol/L BUN (6-24) mg/dL Creatinine (0.51-0.95) mg/dL Est GFR ( Amer) (>60) Est GFR (Non-Af Amer) (>60) BUN/Creatinine Ratio (8-20) Glucose (70-100) mg/dL Lactic Acid 1.4 (0.5-2.0) mmol/L Calcium (8.6-10.3) mg/dL Total Bilirubin (0.2-1.0) mg/dL AST (13-39) U/L ALT (7-52) U/L Alkaline Phosphatase (34-104) U/L Troponin I (<0.04) ng/mL C-Reactive Protein (<8.01) mg/L B-Natriuretic Peptide 38 (<=100) pg/mL Total Protein (6.4-8.9) g/dL Albumin (3.2-5.2) g/dL Globulin (2-4) g/dL Albumin/Globulin Ratio (1-3) Assess/Plan/Problems-Billing 68W with COPD on home O2, hypothyroid, non-Hodgkin's lymphoma, presents with SOB , diarrhea, and rash, found with acute renal failure, likely from hypovolemia in setting of poor PO and diarrhea. No other significant lab abnormalities, CXR normal, SOB quickly resolved after one dose of steroids. Due to frequent dropped beats cardiology has advised for pacemaker. - Patient Problems (1) COPD with exacerbation Current Visit: Yes Status: Acute Code(s): J44.1 - CHRONIC OBSTRUCTIVE PULMONARY DISEASE W (ACUTE) EXACERBATION SNOMED Code(s): 518662726 Comment: Patient had SOB and wheezes during admission. Started on IV steriod and duoneb(as needed). no any sx now. Her iv steroid changed to oral. Continue prednisone burst. Target SaO2- 88-92%; titrate o2 accordingly. (2) Diarrhea Current Visit: Yes Status: Acute Code(s): R19.7 - DIARRHEA, UNSPECIFIED SNOMED Code(s): 33846537 Comment: For 3 days. Improved now. Had one firm bowel movement today. May be viral or c. jejuni or salmonella. Monitor for further symptom. (3) Dropped heart beats Current Visit: Yes Status: Acute Code(s): I45.9 - CONDUCTION DISORDER, UNSPECIFIED SNOMED Code(s): 672750827 Comment: Cause unknown. Aymptomatic. Echo and stress test didnot any significant findings. Lyme antibody was negative. Cardio advised for pacemaker or cardiac event monitor. (4) Rash Current Visit: Yes Status: Acute Code(s): R21 - RASH AND OTHER NONSPECIFIC SKIN ERUPTION SNOMED Code(s): 611661122 Comment: ALL over her back, trunk and extremities. May be just viral exanthem or c. jejuni or salmonella. (5) Hypothyroid Current Visit: No Status: Acute Code(s): E03.9 - HYPOTHYROIDISM, UNSPECIFIED SNOMED Code(s): 33703059 Comment: She was on 100 mcg of synthyroid TSH was low so dose decreased to 75 mCG. Follow up TFT in 4 weeks. (6) DVT prophylaxis Current Visit: No Status: Acute Code(s): CAP9685 - SNOMED Code(s): 440938761 Comment: On heparin. (7) Full code status Current Visit: No Status: Acute Code(s): Z78.9 - OTHER SPECIFIED HEALTH STATUS SNOMED Code(s): 812762158 Status and Disposition: Medicine inpatient. Attending: Leny Aguilera <Leny Aguilera - Last Filed: 03/14/19 21:23> Objective Active Medications: Acetaminophen (Tylenol Tab*) 650 mg PO Q4H PRN PRN Reason: FEVER/PAIN Albuterol/Ipratropium (Duoneb (Albuterol 2.5 Mg/Ipratropium 0.5 Mg)) 1 neb INH [id number] AWAKE PRN PRN Reason: sob/wheexing Aspirin (Aspirin Ec Tab*) 81 mg PO DAILY [facility] Last Admin: 03/14/19 07:54 Dose: 81 mg Enoxaparin Sodium (Lovenox(*)) 30 mg SUBCUT BEDTIME [facility] Last Admin: 03/14/19 20:38 Dose: 30 mg Levothyroxine Sodium (Synthroid Tab*) 75 mcg PO DAILY@0600 [facility] Last Admin: 03/14/19 05:20 Dose: 75 mcg Prednisone (Deltasone Tab*) 40 mg PO DAILY [facility] Stop: 03/15/19 09:01 Last Admin: 03/14/19 07:54 Dose: 40 mg Vital Signs - 8 hr 03/14/19 03/14/19 03/14/19 15:41 18:42 19:30 Temperature 97.4 F 97.8 F Pulse Rate 70 68 Respiratory 18 18 18 Rate Blood Pressure 124/70 125/57 (mmHg) O2 Sat by Pulse 98 99 Oximetry Result Diagrams: 03/11/19 07:45 03/14/19 09:00 Assess/Plan/Problems-Billing Patient feels well. Noted to have dropped beats on tele, so cardiology consulted. No symptoms. Echo and stress unremarkable, with negative Lyme. Pt amenable to staying the weekend for pacer on Saturday. vss well appearing, alert and interactive mmm ctab rrr no mgr soft nontender no LE edema skin with improving erythematous confluent blanching patches over trunk, with macular blanching nonpalpable rash over extremities; palms clear A/P 68W with COPD on home O2, hypothyroid, non-Hodgkin's lymphoma, presents with SOB , diarrhea, and rash, found with acute renal failure, likely from hypovolemia in setting of poor PO and diarrhea. Thought viral syndrome vs bacterial infection, self-resolved, with course complicated by dropped beats on tele without symptoms. # Frequent pauses on tele, up to 4 seconds - pending pacer on Saturday # YAJAIRA, likely from hypovolemia in setting of poor PO and diarrhea. s/p significant IV rehydration. - improving, continue to monitor and encourage PO # COPD exacerbation. Unclear etiology, but symptoms resolved rapidly with IV steroids. No fever, leukocytosis. CXR without consolidation. 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 Possible etiologies include salmonella or campylobacter enteritis vs viral [place]. No BMs since entering hospital. Appetite returned without intervention. - continue to monitor - appreciate ID input # Hypothyroid - reduce home levothyroxine dose to 75mcg - f/u TSH in 6 weeks (early Apr) Attestation Documenting Resident: Kj Supervising Physician: Ale Attestation: This service has been performed in part by a resident under the direction of a teaching physician.IAle, performed the service, or was physically present during the critical, or cuello portions of the service, furnished by the resident. I participated in the management of the patient.
[2019-03-14] MEDS: Heparin VIAL(*) 5000 UNITS/ML VIAL (FIVE THOUSAND) SUBCUT SCH (04:53)
[2019-03-14] MEDS: Levothyroxine TAB* 75 MCG TAB PO SCH (05:20)
[2019-03-14] MEDS: Aspirin EC TAB* 81 MG TAB.EC PO SCH (07:54)
[2019-03-14] MEDS: predniSONE TAB* 20 MG PO SCH (07:54)
[2019-03-14 09:26] LABS: Calcium 8.5 mg/dL (8.6-10.3); EGFR African American 30.1 (>60); EGFR Non-African American 24.9 (>60); Magnesium 2.1 mg/dL (1.9-2.7); Potassium 3.5 mmol/L (3.5-5.0)
[2019-03-14] MEDS ORDERED: Potassium Chloride* LIQUID 20 MEQ/15 ML UDC PO ONE (13:04)
--- NOTE | 2019-03-14 18:11 | PN ---
Subjective Date of Service: 03/14/19 Interval History: Patient feels great. Off supplemental oxygen. Doesn't mind waiting in the hospital for PPM. Denies SOB, light headedness, chest pain, palpitations, or further episodes of diarrhea. Rash nearly resolved. Objective Active Medications: Acetaminophen (Tylenol Tab*) 650 mg PO Q4H PRN PRN Reason: FEVER/PAIN Albuterol/Ipratropium (Duoneb (Albuterol 2.5 Mg/Ipratropium 0.5 Mg)) 1 neb INH [id number] AWAKE PRN PRN Reason: sob/wheexing Aspirin (Aspirin Ec Tab*) 81 mg PO DAILY [facility] Last Admin: 03/14/19 07:54 Dose: 81 mg Enoxaparin Sodium (Lovenox(*)) 30 mg SUBCUT BEDTIME [facility] Levothyroxine Sodium (Synthroid Tab*) 75 mcg PO DAILY@0600 [facility] Last Admin: 03/14/19 05:20 Dose: 75 mcg Prednisone (Deltasone Tab*) 40 mg PO DAILY [facility] Stop: 03/15/19 09:01 Last Admin: 03/14/19 07:54 Dose: 40 mg Vital Signs - 8 hr 03/14/19 03/14/19 11:15 15:41 Temperature 97.9 F 97.4 F Pulse Rate 80 70 Respiratory 18 18 Rate Blood Pressure 128/72 124/70 (mmHg) O2 Sat by Pulse 93 98 Oximetry Oxygen Devices in Use Now: None Appearance: well appearing, friendly, sitting on side of bed on cellphone Ears/Nose/Mouth/Throat: Clear Oropharnyx, Mucous Membranes Moist Respiratory: Symmetrical Chest Expansion and Respiratory Effort, Clear to Auscultation Cardiovascular: NL Sounds; No Murmurs; No JVD, RRR Abdominal: NL Sounds; No Tenderness; No Distention, No Hepatosplenomegaly Extremities: No Edema Skin: - - diffuse body rash nearly resolved Neurological: Alert and Oriented x 3 Result Diagrams: 03/11/19 07:45 03/14/19 09:00 Microbiology and Other Data: Microbiology 03/10/19 22:15 Aerobic Blood Culture - Preliminary Blood Venous No Growth Day 3 Anaerobic Blood Culture - Preliminary No Growth Day 3 03/10/19 22:00 Aerobic Blood Culture - Preliminary Blood Venous No Growth Day 3 Anaerobic Blood Culture - Preliminary No Growth Day 3 03/11/19 03:00 Urine Culture - Final Urine 03/11/19 10:51 Legionella Urinary Antigen - Final Urine Negative Legionella Antigen Streptococcus pneumoniae Ag Screen - Final Negative S. pneumo Antigen Assess/Plan/Problems-Billing 68W with COPD on home O2, hypothyroid, non-Hodgkin's lymphoma, presents with SOB , diarrhea, and rash, found with acute renal failure, likely from hypovolemia in setting of poor PO and diarrhea. Thought viral syndrome vs bacterial infection, self-resolved, with course complicated by dropped beats on tele without symptoms, now pending PPM placement. # Frequent pauses on tele, up to 4 seconds - pending pacer on Saturday - no rate-lowering agents # YAJAIRA, likely from hypovolemia in setting of poor PO and diarrhea. s/p significant IV rehydration. - improving, continue to monitor and encourage PO # COPD exacerbation. Unclear etiology, but symptoms resolved rapidly with IV steroids. No fever, leukocytosis. CXR without consolidation. - cont prednisone burst - nebulizers as needed - contacted pt's public speaking teacher for her clinic team to figure out which LABA vs LAMA is covered by patient's insurance - SaO2 goal 88-92% # Diarrhea and rash. Possible etiologies include salmonella or campylobacter enteritis vs viral [place]. No BMs since entering hospital. Appetite returned without intervention. - continue to monitor - appreciate ID input # Hypothyroid - reduce home levothyroxine dose to 75mcg - f/u TSH in 6 weeks (early Apr) Status and Disposition: Medicine inpatient.
[2019-03-14] MEDS: Enoxaparin(*) 30 MG/0.3 ML SYR SUBCUT SCH (20:38)
[2019-03-15] MEDS: Levothyroxine TAB* 75 MCG TAB PO SCH (05:12)
[2019-03-15 07:47] LABS: BUN/Creatinine Ratio 24.7 (8-20); Calcium 8.4 mg/dL (8.6-10.3); EGFR African American 36.3 (>60); Potassium 4.1 mmol/L (3.5-5.0)
[2019-03-15] MEDS: Aspirin EC TAB* 81 MG TAB.EC PO SCH (09:23)
[2019-03-15] MEDS: predniSONE TAB* 20 MG PO SCH (09:23)
--- NOTE | 2019-03-15 13:27 | PN ---
<Kay Underwood - Last Filed: 03/15/19 13:22> Subjective Date of Service: 03/15/19 Interval History: Patient doesnot have any fresh complaint. Rash is decreasing and no diarrhea. She is breathing well without supplemental oxygen. Waiting for PPM(probably tomorrow). No chest pain, SOB, light headedness, palpitations. Objective Active Medications: Acetaminophen (Tylenol Tab*) 650 mg PO Q4H PRN PRN Reason: FEVER/PAIN Albuterol/Ipratropium (Duoneb (Albuterol 2.5 Mg/Ipratropium 0.5 Mg)) 1 neb INH [id number] AWAKE PRN PRN Reason: sob/wheexing Aspirin (Aspirin Ec Tab*) 81 mg PO DAILY [facility] Last Admin: 03/15/19 09:23 Dose: 81 mg Enoxaparin Sodium (Lovenox(*)) 30 mg SUBCUT BEDTIME [facility] Last Admin: 03/14/19 20:38 Dose: 30 mg Levothyroxine Sodium (Synthroid Tab*) 75 mcg PO DAILY@0600 [facility] Last Admin: 03/15/19 05:12 Dose: 75 mcg Vital Signs - 8 hr 03/15/19 03/15/19 03/15/19 07:15 08:00 11:15 Temperature 98.3 F 97.8 F Pulse Rate 67 84 Respiratory 20 18 20 Rate Blood Pressure 151/73 152/77 (mmHg) O2 Sat by Pulse 94 Oximetry Oxygen Devices in Use Now: None Exam: Patient was sitting on a bed with nasal canula. HEENT: Normocephalic, Atraumatic. EYES PERRLA. Heart: Normal heart sound heard. Lungs: Normal vesicular sound with no any added sounds. Abdomen: Soft , nontender and bowel sound heard. Extremities: No any swelling. Skin: Erythematous patches on her back, abdomen, arms and lower extremities. Nontender and blanchable and is decreasing. Result Diagrams: 03/11/19 07:45 03/15/19 06:46 Additional Lab and Data: Lab Results 03/10/19 03/10/19 03/10/19 Range/Units 22:00 22:00 22:00 WBC 6.9 (3.5-10.8) 10^3/uL RBC 4.43 (3.70-4.87) 10^6 /uL Hgb 13.5 (12.0-16.0) g/dL Hct 40 (35-47) % MCV 90 (80-97) fL MCH 30 (27-31) pg MCHC 34 (31-36) g/dL RDW 14 (10-15) % Plt Count 142 L (150-450) 10^3/uL MPV 9.8 (7.4-10.4) fL Neut % (Auto) 88.1 % Lymph % (Auto) 7.7 % [place] % (Auto) 3.9 % Eos % (Auto) 0.1 % Baso % (Auto) 0.2 % Absolute Neuts (auto) 6.1 (1.5-7.7) 10^3/ul Absolute Lymphs (auto) 0.5 L (1.0-4.8) 10^3/ul Absolute Monos (auto) 0.3 (0-0.8) 10^3/ul Absolute Eos (auto) 0.0 (0-0.6) 10^3/ul Absolute Basos (auto) 0.0 (0-0.2) 10^3/ul Absolute Nucleated RBC 0.0 10^3/ul Nucleated RBC % 0.0 INR (Anticoag Therapy) 1.00 (0.82-1.09) APTT 33.3 (26.0-38.0) seconds ABG pH (7.35-7.45) ABG pCO2 (35-45) mmHg ABG pO2 (80-100) mmHg ABG HCO3 (19-31) mmol/L ABG O2 Saturation (94.0-98.0) % ABG Base Excess (-2.0-2.0) mmol/L Sodium 131 L (135-145) mmol/L Potassium 3.7 (3.5-5.0) mmol/L Chloride 94 L (101-111) mmol/L Carbon Dioxide 25 (22-32) mmol/L Anion Gap 12 H (2-11) mmol/L BUN 48 H (6-24) mg/dL Creatinine 2.41 H (0.51-0.95) mg/dL Est GFR ( Amer) 24.2 (>60) Est GFR (Non-Af Amer) 20.0 (>60) BUN/Creatinine Ratio 19.9 (8-20) Glucose 146 H (70-100) mg/dL Lactic Acid (0.5-2.0) mmol/L Calcium 9.1 (8.6-10.3) mg/dL Total Bilirubin 0.80 (0.2-1.0) mg/dL AST 246 H (13-39) U/L ALT 128 H (7-52) U/L Alkaline Phosphatase 87 (34-104) U/L Troponin I 0.09 H* (<0.04) ng/mL C-Reactive Protein 120.72 H (<8.01) mg/L B-Natriuretic Peptide (<=100) pg/mL Total Protein 7.2 (6.4-8.9) g/dL Albumin 3.7 (3.2-5.2) g/dL Globulin 3.5 (2-4) g/dL Albumin/Globulin Ratio 1.1 (1-3) 03/10/19 03/10/19 03/10/19 Range/Units 22:00 22:00 22:05 WBC (3.5-10.8) 10^3/uL RBC (3.70-4.87) 10^6 /uL Hgb (12.0-16.0) g/dL Hct (35-47) % MCV (80-97) fL MCH (27-31) pg MCHC (31-36) g/dL RDW (10-15) % Plt Count (150-450) 10^3/uL MPV (7.4-10.4) fL Neut % (Auto) % Lymph % (Auto) % [place] % (Auto) % Eos % (Auto) % Baso % (Auto) % Absolute Neuts (auto) (1.5-7.7) 10^3/ul Absolute Lymphs (auto) (1.0-4.8) 10^3/ul Absolute Monos (auto) (0-0.8) 10^3/ul Absolute Eos (auto) (0-0.6) 10^3/ul Absolute Basos (auto) (0-0.2) 10^3/ul Absolute Nucleated RBC 10^3/ul Nucleated RBC % INR (Anticoag Therapy) (0.82-1.09) APTT (26.0-38.0) seconds ABG pH 7.44 (7.35-7.45) ABG pCO2 34 L (35-45) mmHg ABG pO2 83 (80-100) mmHg ABG HCO3 24.5 (19-31) mmol/L ABG O2 Saturation 98.7 H (94.0-98.0) % ABG Base Excess -0.5 (-2.0-2.0) mmol/L Sodium (135-145) mmol/L Potassium (3.5-5.0) mmol/L Chloride (101-111) mmol/L Carbon Dioxide (22-32) mmol/L Anion Gap (2-11) mmol/L BUN (6-24) mg/dL Creatinine (0.51-0.95) mg/dL Est GFR ( Amer) (>60) Est GFR (Non-Af Amer) (>60) BUN/Creatinine Ratio (8-20) Glucose (70-100) mg/dL Lactic Acid 1.4 (0.5-2.0) mmol/L Calcium (8.6-10.3) mg/dL Total Bilirubin (0.2-1.0) mg/dL AST (13-39) U/L ALT (7-52) U/L Alkaline Phosphatase (34-104) U/L Troponin I (<0.04) ng/mL C-Reactive Protein (<8.01) mg/L B-Natriuretic Peptide 38 (<=100) pg/mL Total Protein (6.4-8.9) g/dL Albumin (3.2-5.2) g/dL Globulin (2-4) g/dL Albumin/Globulin Ratio (1-3) Microbiology and Other Data: Microbiology 03/10/19 22:15 Aerobic Blood Culture - Preliminary Blood Venous No Growth Day 3 Anaerobic Blood Culture - Preliminary No Growth Day 3 03/10/19 22:00 Aerobic Blood Culture - Preliminary Blood Venous No Growth Day 3 Anaerobic Blood Culture - Preliminary No Growth Day 3 03/11/19 03:00 Urine Culture - Final Urine 03/11/19 10:51 Legionella Urinary Antigen - Final Urine Negative Legionella Antigen Streptococcus pneumoniae Ag Screen - Final Negative S. pneumo Antigen Assess/Plan/Problems-Billing 68W with COPD on home O2, hypothyroid, non-Hodgkin's lymphoma, presents with SOB , diarrhea, and rash, found with acute renal failure, likely from hypovolemia in setting of poor PO and diarrhea. Thought viral syndrome vs bacterial infection, self-resolved, with course complicated by dropped beats on tele without symptoms, now pending PPM placement. - Patient Problems (1) COPD with exacerbation Current Visit: Yes Status: Acute Code(s): J44.1 - CHRONIC OBSTRUCTIVE PULMONARY DISEASE W (ACUTE) EXACERBATION SNOMED Code(s): 567722882 Comment: Patient had SOB and wheezes during admission. Started on IV steriod and duoneb(as needed). no any sx now. Her iv steroid changed to oral. Prednisone burst completed today. Target SaO2- 88-92%; titrate o2 accordingly. (2) Diarrhea Current Visit: Yes Status: Acute Code(s): R19.7 - DIARRHEA, UNSPECIFIED SNOMED Code(s): 69647546 Comment: For 3 days. Improved now. Had one firm bowel movement today. May be viral or c. jejuni or salmonella. Monitor for further symptom. (3) Dropped heart beats Current Visit: Yes Status: Acute Code(s): I45.9 - CONDUCTION DISORDER, UNSPECIFIED SNOMED Code(s): 706750993 Comment: Cause unknown. Aymptomatic. Echo and stress test didnot any significant findings. Lyme antibody was negative. Cardio advised for pacemaker or cardiac event monitor.(probably tomorrow) (4) Rash Current Visit: Yes Status: Acute Code(s): R21 - RASH AND OTHER NONSPECIFIC SKIN ERUPTION SNOMED Code(s): 358197943 Comment: ALL over her back, trunk and extremities. now decreasing. May be just viral exanthem or c. jejuni or salmonella. (5) Hypothyroid Current Visit: No Status: Acute Code(s): E03.9 - HYPOTHYROIDISM, UNSPECIFIED SNOMED Code(s): 26229590 Comment: She was on 100 mcg of synthyroid TSH was low so dose decreased to 75 mCG. Follow up TFT in 4 weeks. (6) DVT prophylaxis Current Visit: No Status: Acute Code(s): AJN1427 - SNOMED Code(s): 840442149 Comment: On heparin. (7) Full code status Current Visit: No Status: Acute Code(s): Z78.9 - OTHER SPECIFIED HEALTH STATUS SNOMED Code(s): 066477896 Status and Disposition: Medicine inpatient. Attending: Leny Aguilera <Leny Aguilera - Last Filed: 03/15/19 17:43> Objective Active Medications: Acetaminophen (Tylenol Tab*) 650 mg PO Q4H PRN PRN Reason: FEVER/PAIN Albuterol/Ipratropium (Duoneb (Albuterol 2.5 Mg/Ipratropium 0.5 Mg)) 1 neb INH [id number] AWAKE PRN PRN Reason: sob/wheexing Aspirin (Aspirin Ec Tab*) 81 mg PO DAILY [facility] Last Admin: 03/15/19 09:23 Dose: 81 mg Enoxaparin Sodium (Lovenox(*)) 30 mg SUBCUT BEDTIME [facility] Last Admin: 03/14/19 20:38 Dose: 30 mg Levothyroxine Sodium (Synthroid Tab*) 75 mcg PO DAILY@0600 [facility] Last Admin: 03/15/19 05:12 Dose: 75 mcg Vital Signs - 8 hr 03/15/19 11:15 Temperature 97.8 F Pulse Rate 84 Respiratory 20 Rate Blood Pressure 152/77 (mmHg) Result Diagrams: 03/15/19 14:30 03/15/19 06:46 Assess/Plan/Problems-Billing No overnight events. Feels well, denies SOB, CP, light headedness, palpitations , recurrence of diarrhea. vss well appearing, alert and interactive ctab rrr no mgr soft nontender no LE edema A/P 68W with COPD on home O2, hypothyroid, non-Hodgkin's lymphoma, presents with SOB , diarrhea, and rash, found with acute renal failure, likely from hypovolemia in setting of poor PO and diarrhea. Thought viral syndrome vs bacterial infection, self-resolved, with course complicated by dropped beats on tele without symptoms, now pending PPM placement. # Frequent pauses on tele, up to 4 seconds - pending pacer on Saturday - no rate-lowering agents # YAJAIRA, likely from hypovolemia in setting of poor PO and diarrhea. s/p significant IV rehydration. - improving, continue to monitor and encourage PO # COPD exacerbation. Unclear etiology, but symptoms resolved rapidly with IV steroids. No fever, leukocytosis. CXR without consolidation. 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 Possible etiologies include salmonella or campylobacter enteritis vs viral [place]. No BMs since entering hospital. Appetite returned without intervention. - continue to monitor # Hypothyroid - reduce home levothyroxine dose to 75mcg - f/u TSH in 6 weeks (early Apr) Attestation Documenting Resident: Kj Supervising Physician: Ale Attestation: This service has been performed in part by a resident under the direction of a teaching physician.IAle, performed the service, or was physically present during the critical, or cuello portions of the service, furnished by the resident. I participated in the management of the patient.
[2019-03-15 14:21] LABS: Troponin I 0.02 ng/mL (<0.04)
[2019-03-15 14:43] LABS: Hematocrit 33 % (35-47); Hemoglobin 10.9 g/dL (12.0-16.0); Mean Corpuscular HGB Conc 33 g/dL (31-36); Mean Corpuscular Hemoglobin 30 pg (27-31); Mean Corpuscular Volume 90 fL (80-97); Mean Platelet Volume 9.7 fL (7.4-10.4); Platelet Count 197 10^3/uL (150-450); Red Blood Count 3.68 10^6 /uL (3.70-4.87); Red Cell Distribution Width 15 % (10-15); White Blood Count 13.5 10^3/uL (3.5-10.8)
[2019-03-15 16:20] LABS: ABS Eosinophils 0.4 10^3/ul (0-0.6); ABS Lymphocytes 1.1 10^3/ul (1.0-4.8); ABS Monocytes 1.9 10^3/ul (0-0.8); ABS Neutrophils 10.1 10^3/ul (1.5-7.7); Eosinophil % 3.3 %; Lymphocyte % 8.2 %; Nucleated Red Blood Cells % 0.2
[2019-03-15] MEDS: Enoxaparin(*) 30 MG/0.3 ML SYR SUBCUT SCH (22:27)
[2019-03-16] MEDS: Levothyroxine TAB* 75 MCG TAB PO SCH ×2 (05:16→08:01)
[2019-03-16 06:36] LABS: INR 0.88 (0.82-1.09)
[2019-03-16 06:49] LABS: BUN/Creatinine Ratio 24.5 (8-20); Calcium 8.4 mg/dL (8.6-10.3); EGFR African American 42.9 (>60); EGFR Non-African American 35.5 (>60); Potassium 4.5 mmol/L (3.5-5.0)
[2019-03-16] MEDS: Aspirin EC TAB* 81 MG TAB.EC PO SCH ×2 (07:34→08:00)
[2019-03-16] MEDS ORDERED: Diazepam TAB(*) 5 MG PO ONE (08:13)
[2019-03-16] MEDS ORDERED: ceFAZolin 2 GM in NS PREMIX(*) 2 GM/100 ML BAG IVPB ONE (08:13)
[2019-03-16] MEDS ORDERED: ceFAZolin 1 GM/10 ML flush(*) SYRINGE for pocket flush (cardiology) FLUSH ONE (08:13)
--- NOTE | 2019-03-16 11:37 | PN ---
<Gardenia Guy - Last Filed: 03/16/19 17:36> Subjective Date of Service: 03/16/19 Interval History: Patient is ambulating with a walker this morning when we saw the patient. She is generally feeling good, no more diarrhea, good appetite. She is scheduled for PPM this afternoon. Also we talked to her big family in the room, explained to them our plan of discharge tomorrow once getting PPM done today uneventfully. They were happy with this plan. Objective Active Medications: Acetaminophen (Tylenol Tab*) 650 mg PO Q4H PRN PRN Reason: FEVER/PAIN Albuterol/Ipratropium (Duoneb (Albuterol 2.5 Mg/Ipratropium 0.5 Mg)) 1 neb INH [id number] AWAKE PRN PRN Reason: sob/wheexing Aspirin (Aspirin Ec Tab*) 81 mg PO DAILY [facility] Last Admin: 03/16/19 08:00 Dose: 81 mg Enoxaparin Sodium (Lovenox(*)) 40 mg SUBCUT BEDTIME [facility] Sodium Chloride (Ns 0.9% 1000 Ml) 1,000 mls @ 75 mls/hr IV PER RATE [facility] Levothyroxine Sodium (Synthroid Tab*) 75 mcg PO DAILY@0600 [facility] Last Admin: 03/16/19 08:01 Dose: 75 mcg Vital Signs - 8 hr 03/16/19 03/16/19 07:23 07:44 Temperature 98.2 F Pulse Rate 57 Respiratory 20 20 Rate Blood Pressure 141/76 (mmHg) O2 Sat by Pulse 95 Oximetry Oxygen Devices in Use Now: None Exam: Pt is ambulating with a walker General: well, no in distress, speak in full sentence Heart: normal S1, S2, no murmur Lung: clear Abdomen: soft, non tender Result Diagrams: 03/15/19 14:30 03/16/19 06:04 Additional Lab and Data: Lab Results 03/10/19 03/10/19 03/10/19 Range/Units 22:00 22:00 22:00 WBC 6.9 (3.5-10.8) 10^3/uL RBC 4.43 (3.70-4.87) 10^6 /uL Hgb 13.5 (12.0-16.0) g/dL Hct 40 (35-47) % MCV 90 (80-97) fL MCH 30 (27-31) pg MCHC 34 (31-36) g/dL RDW 14 (10-15) % Plt Count 142 L (150-450) 10^3/uL MPV 9.8 (7.4-10.4) fL Neut % (Auto) 88.1 % Lymph % (Auto) 7.7 % [place] % (Auto) 3.9 % Eos % (Auto) 0.1 % Baso % (Auto) 0.2 % Absolute Neuts (auto) 6.1 (1.5-7.7) 10^3/ul Absolute Lymphs (auto) 0.5 L (1.0-4.8) 10^3/ul Absolute Monos (auto) 0.3 (0-0.8) 10^3/ul Absolute Eos (auto) 0.0 (0-0.6) 10^3/ul Absolute Basos (auto) 0.0 (0-0.2) 10^3/ul Absolute Nucleated RBC 0.0 10^3/ul Nucleated RBC % 0.0 INR (Anticoag Therapy) 1.00 (0.82-1.09) APTT 33.3 (26.0-38.0) seconds ABG pH (7.35-7.45) ABG pCO2 (35-45) mmHg ABG pO2 (80-100) mmHg ABG HCO3 (19-31) mmol/L ABG O2 Saturation (94.0-98.0) % ABG Base Excess (-2.0-2.0) mmol/L Sodium 131 L (135-145) mmol/L Potassium 3.7 (3.5-5.0) mmol/L Chloride 94 L (101-111) mmol/L Carbon Dioxide 25 (22-32) mmol/L Anion Gap 12 H (2-11) mmol/L BUN 48 H (6-24) mg/dL Creatinine 2.41 H (0.51-0.95) mg/dL Est GFR ( Amer) 24.2 (>60) Est GFR (Non-Af Amer) 20.0 (>60) BUN/Creatinine Ratio 19.9 (8-20) Glucose 146 H (70-100) mg/dL Lactic Acid (0.5-2.0) mmol/L Calcium 9.1 (8.6-10.3) mg/dL Total Bilirubin 0.80 (0.2-1.0) mg/dL AST 246 H (13-39) U/L ALT 128 H (7-52) U/L Alkaline Phosphatase 87 (34-104) U/L Troponin I 0.09 H* (<0.04) ng/mL C-Reactive Protein 120.72 H (<8.01) mg/L B-Natriuretic Peptide (<=100) pg/mL Total Protein 7.2 (6.4-8.9) g/dL Albumin 3.7 (3.2-5.2) g/dL Globulin 3.5 (2-4) g/dL Albumin/Globulin Ratio 1.1 (1-3) 03/10/19 03/10/19 03/10/19 Range/Units 22:00 22:00 22:05 WBC (3.5-10.8) 10^3/uL RBC (3.70-4.87) 10^6 /uL Hgb (12.0-16.0) g/dL Hct (35-47) % MCV (80-97) fL MCH (27-31) pg MCHC (31-36) g/dL RDW (10-15) % Plt Count (150-450) 10^3/uL MPV (7.4-10.4) fL Neut % (Auto) % Lymph % (Auto) % [place] % (Auto) % Eos % (Auto) % Baso % (Auto) % Absolute Neuts (auto) (1.5-7.7) 10^3/ul Absolute Lymphs (auto) (1.0-4.8) 10^3/ul Absolute Monos (auto) (0-0.8) 10^3/ul Absolute Eos (auto) (0-0.6) 10^3/ul Absolute Basos (auto) (0-0.2) 10^3/ul Absolute Nucleated RBC 10^3/ul Nucleated RBC % INR (Anticoag Therapy) (0.82-1.09) APTT (26.0-38.0) seconds ABG pH 7.44 (7.35-7.45) ABG pCO2 34 L (35-45) mmHg ABG pO2 83 (80-100) mmHg ABG HCO3 24.5 (19-31) mmol/L ABG O2 Saturation 98.7 H (94.0-98.0) % ABG Base Excess -0.5 (-2.0-2.0) mmol/L Sodium (135-145) mmol/L Potassium (3.5-5.0) mmol/L Chloride (101-111) mmol/L Carbon Dioxide (22-32) mmol/L Anion Gap (2-11) mmol/L BUN (6-24) mg/dL Creatinine (0.51-0.95) mg/dL Est GFR ( Amer) (>60) Est GFR (Non-Af Amer) (>60) BUN/Creatinine Ratio (8-20) Glucose (70-100) mg/dL Lactic Acid 1.4 (0.5-2.0) mmol/L Calcium (8.6-10.3) mg/dL Total Bilirubin (0.2-1.0) mg/dL AST (13-39) U/L ALT (7-52) U/L Alkaline Phosphatase (34-104) U/L Troponin I (<0.04) ng/mL C-Reactive Protein (<8.01) mg/L B-Natriuretic Peptide 38 (<=100) pg/mL Total Protein (6.4-8.9) g/dL Albumin (3.2-5.2) g/dL Globulin (2-4) g/dL Albumin/Globulin Ratio (1-3) Microbiology and Other Data: Microbiology 03/10/19 22:15 Aerobic Blood Culture - Preliminary Blood Venous No Growth Day 3 Anaerobic Blood Culture - Preliminary No Growth Day 3 03/10/19 22:00 Aerobic Blood Culture - Preliminary Blood Venous No Growth Day 3 Anaerobic Blood Culture - Preliminary No Growth Day 3 03/11/19 03:00 Urine Culture - Final Urine 03/11/19 10:51 Legionella Urinary Antigen - Final Urine Negative Legionella Antigen Streptococcus pneumoniae Ag Screen - Final Negative S. pneumo Antigen Assess/Plan/Problems-Billing 68W with COPD on home O2, hypothyroid, non-Hodgkin's lymphoma, presents with SOB , diarrhea, and rash, found with acute renal failure, likely from hypovolemia in setting of poor PO and diarrhea. Her diarrhea was likely due to viral syndrome vs bacterial infection, self-resolved, with course complicated by frquent pauses up to 4s on tele without symptoms, planning for PPM placement today. - Patient Problems (1) Dropped heart beats Current Visit: Yes Status: Acute Code(s): I45.9 - CONDUCTION DISORDER, UNSPECIFIED SNOMED Code(s): 134717462 Comment: Cause unknown. Aymptomatic. Echo and stress test: no significant findings. Lyme antibody was negative. will have ppm placement today (2) COPD with exacerbation Current Visit: Yes Status: Acute Code(s): J44.1 - CHRONIC OBSTRUCTIVE PULMONARY DISEASE W (ACUTE) EXACERBATION SNOMED Code(s): 267454130 Comment: Patient had SOB and wheezes during admission. Started on steriod and duoneb, and symptoms resolved. (3) Diarrhea Current Visit: Yes Status: Acute Code(s): R19.7 - DIARRHEA, UNSPECIFIED SNOMED Code(s): 17210148 Comment: Resolved. May be viral or c. jejuni or salmonella. (4) Rash Current Visit: Yes Status: Acute Code(s): R21 - RASH AND OTHER NONSPECIFIC SKIN ERUPTION SNOMED Code(s): 689180699 Comment: ALL over her back, trunk and extremities. now decreasing. May be just viral exanthem or c. jejuni or salmonella. (5) DVT prophylaxis Current Visit: No Status: Acute Code(s): KXC1683 - SNOMED Code(s): 212663919 Comment: On heparin. (6) Dizziness Current Visit: No Status: Acute Code(s): R42 - DIZZINESS AND GIDDINESS SNOMED Code(s): 159251566 Comment: - BPPV - Confounding with episode of afib overnight- seen by cardiology who reports episode is not afib - MRI, MRA, US carotids as above - Neurology consult appreciated, [place] Maneuvers applied by Dr. Paiz- reports dizziness is improving- continues to have, gait imbalance with walking. - ECHO with negative bubble study - Continue meclizine PRN - Optimize lipids, will start high dose statin and AC (7) Dyslipidemia Current Visit: No Status: Acute Code(s): E78.5 - HYPERLIPIDEMIA, UNSPECIFIED SNOMED Code(s): 715224869 Comment: start lipitor at 80 mg po daily (8) History of lymphoma Current Visit: No Status: Acute Code(s): Z85.79 - PRSNL HX OF MALIG NEOPLM OF LYMPHOID, HEMATPOETC & REL TISS SNOMED Code(s): 726399211 Comment: - Stable (9) Hypothyroid Current Visit: No Status: Acute Code(s): E03.9 - HYPOTHYROIDISM, UNSPECIFIED SNOMED Code(s): 46818097 Comment: She was on 100 mcg of synthyroid TSH was low so dose decreased to 75 mCG. Follow up TFT in 4 weeks. (10) Full code status Current Visit: No Status: Acute Code(s): Z78.9 - OTHER SPECIFIED HEALTH STATUS SNOMED Code(s): 505845888 Status and Disposition: Medicine inpatient. Discharge tomorrow if PPM done uneventfully. Attestation Documenting Resident: Gardenia Guy Supervising Physician: Franca Hernandez Attestation: This service has been performed in part by a resident under the direction of a teaching physician.I, Franca Hernandez, performed the service, or was physically present during the critical, or cuello portions of the service, furnished by the resident. I participated in the management of the patient. <Franca Hernandez - Last Filed: 03/16/19 18:19> Objective Active Medications: Acetaminophen (Tylenol Tab*) 650 mg PO Q4H PRN PRN Reason: FEVER/PAIN Albuterol/Ipratropium (Duoneb (Albuterol 2.5 Mg/Ipratropium 0.5 Mg)) 1 neb INH [id number] AWAKE PRN PRN Reason: sob/wheexing Aspirin (Aspirin Ec Tab*) 81 mg PO DAILY [facility] Last Admin: 03/16/19 08:00 Dose: 81 mg Enoxaparin Sodium (Lovenox(*)) 40 mg SUBCUT BEDTIME [facility] Sodium Chloride (Ns 0.9% 1000 Ml) 1,000 mls @ 75 mls/hr IV PER RATE [facility] Last Admin: 03/16/19 12:18 Dose: 75 mls/hr Cefazolin Sodium 1 gm/ Sodium (Chloride) 50 mls @ 200 mls/hr IVPB Q8H [facility] Stop: 03/17/19 10:14 Last Admin: 03/16/19 17:40 Dose: 200 mls/hr Levothyroxine Sodium (Synthroid Tab*) 75 mcg PO DAILY@0600 [facility] Last Admin: 03/16/19 08:01 Dose: 75 mcg Oxycodone/Acetaminophen (Percocet 5/325 Tab*) 1 tab PO Q4H PRN PRN Reason: PAIN Vital Signs - 8 hr 03/16/19 03/16/19 03/16/19 11:25 15:14 17:28 Temperature 97.7 F 97.9 F 97.4 F Pulse Rate 68 67 70 Respiratory 19 18 22 Rate Blood Pressure 118/65 141/75 148/82 (mmHg) O2 Sat by Pulse 92 97 94 Oximetry 03/16/19 03/16/19 17:41 18:11 Temperature 97.5 F Pulse Rate 68 73 Respiratory 20 Rate Blood Pressure 147/74 (mmHg) O2 Sat by Pulse 92 Oximetry Result Diagrams: 03/15/19 14:30 03/16/19 06:04 Assess/Plan/Problems-Billing Assessment: Attending: Franca Hernandez
[2019-03-16] MEDS: NS 0.9% 1000 ML** 1,000 ML IV SCH (12:18)
[2019-03-16] MEDS ORDERED: fentaNYL* 50 MCG/ML 2 ML VIAL (100 MCG VIAL) ONE (15:54)
[2019-03-16] MEDS ORDERED: Midazolam* 1 MG/ML 5 ML VIAL (5 MG) ONE (15:54)
[2019-03-16] MEDS ORDERED: Lidocaine 1% INJ* 10 MG/ML 30 ML SDV ONE (15:54)
[2019-03-16] MEDS ORDERED: oxyCODONE/Acetamin 5/325 MG* TAB PO PRN (17:11)
[2019-03-16] MEDS: ceFAZolin 1 GM ADVAN(*) 1 GM in NS 0.9% 50 ML* 50 ML IVPB SCH (17:40)
[2019-03-16] MEDS ORDERED: Enoxaparin(*) 40 MG/0.4 ML SYR SUBCUT SCH (21:00)
[2019-03-17] MEDS: ceFAZolin 1 GM ADVAN(*) 1 GM in NS 0.9% 50 ML* 50 ML IVPB SCH ×2 (02:44→09:06)
[2019-03-17] MEDS: NS 0.9% 1000 ML** 1,000 ML IV SCH (02:45)
[2019-03-17] MEDS: Levothyroxine TAB* 75 MCG TAB PO SCH (05:29)
[2019-03-17 06:33] LABS: Calcium 7.8 mg/dL (8.6-10.3); Potassium 4.4 mmol/L (3.5-5.0)
[2019-03-17 06:36] LABS: ABS Basophils 0.1 10^3/ul (0-0.2); ABS Eosinophils 0.3 10^3/ul (0-0.6); ABS Lymphocytes 2.7 10^3/ul (1.0-4.8); ABS Monocytes 0.7 10^3/ul (0-0.8); ABS Neutrophils 7.8 10^3/ul (1.5-7.7); Eosinophil % 2.6 %; Hematocrit 31 % (35-47); Hemoglobin 10.5 g/dL (12.0-16.0); Lymphocyte % 23.3 %; Mean Corpuscular HGB Conc 34 g/dL (31-36); Mean Corpuscular Hemoglobin 31 pg (27-31); Mean Corpuscular Volume 90 fL (80-97); Mean Platelet Volume 9.1 fL (7.4-10.4); Nucleated Red Blood Cells % 0.1; Platelet Count 233 10^3/uL (150-450); Red Blood Count 3.42 10^6 /uL (3.70-4.87); Red Cell Distribution Width 14 % (10-15); White Blood Count 11.6 10^3/uL (3.5-10.8)
[2019-03-17 06:38] LABS: BUN/Creatinine Ratio 23.1 (8-20); EGFR African American 53.7 (>60); EGFR Non-African American 44.4 (>60)
--- NOTE | 2019-03-17 07:23 | PN ---
Subjective Date of Service: 03/17/19 Objective Active Medications: Acetaminophen (Tylenol Tab*) 650 mg PO Q4H PRN PRN Reason: FEVER/PAIN Albuterol/Ipratropium (Duoneb (Albuterol 2.5 Mg/Ipratropium 0.5 Mg)) 1 neb INH [id number] AWAKE PRN PRN Reason: sob/wheexing Aspirin (Aspirin Ec Tab*) 81 mg PO DAILY [facility] Last Admin: 03/16/19 08:00 Dose: 81 mg Enoxaparin Sodium (Lovenox(*)) 40 mg SUBCUT BEDTIME [facility] Last Admin: 03/16/19 20:16 Dose: 40 mg Sodium Chloride (Ns 0.9% 1000 Ml) 1,000 mls @ 75 mls/hr IV PER RATE [facility] Last Admin: 03/17/19 02:45 Dose: 75 mls/hr Cefazolin Sodium 1 gm/ Sodium (Chloride) 50 mls @ 200 mls/hr IVPB Q8H [facility] Stop: 03/17/19 10:14 Last Admin: 03/17/19 02:44 Dose: 200 mls/hr Levothyroxine Sodium (Synthroid Tab*) 75 mcg PO DAILY@0600 [facility] Last Admin: 03/17/19 05:29 Dose: 75 mcg Oxycodone/Acetaminophen (Percocet 5/325 Tab*) 1 tab PO Q4H PRN PRN Reason: PAIN Vital Signs - 8 hr 03/17/19 03/17/19 03/17/19 00:41 01:17 04:19 Temperature 98.5 F 98.7 F Pulse Rate 81 74 Respiratory 24 16 Rate Blood Pressure 127/66 130/69 (mmHg) O2 Sat by Pulse 94 94 91 Oximetry Oxygen Devices in Use Now: None Result Diagrams: 03/17/19 05:56 03/17/19 05:57 Additional Lab and Data: Lab Results 03/10/19 03/10/19 03/10/19 Range/Units 22:00 22:00 22:00 WBC 6.9 (3.5-10.8) 10^3/uL RBC 4.43 (3.70-4.87) 10^6 /uL Hgb 13.5 (12.0-16.0) g/dL Hct 40 (35-47) % MCV 90 (80-97) fL MCH 30 (27-31) pg MCHC 34 (31-36) g/dL RDW 14 (10-15) % Plt Count 142 L (150-450) 10^3/uL MPV 9.8 (7.4-10.4) fL Neut % (Auto) 88.1 % Lymph % (Auto) 7.7 % [place] % (Auto) 3.9 % Eos % (Auto) 0.1 % Baso % (Auto) 0.2 % Absolute Neuts (auto) 6.1 (1.5-7.7) 10^3/ul Absolute Lymphs (auto) 0.5 L (1.0-4.8) 10^3/ul Absolute Monos (auto) 0.3 (0-0.8) 10^3/ul Absolute Eos (auto) 0.0 (0-0.6) 10^3/ul Absolute Basos (auto) 0.0 (0-0.2) 10^3/ul Absolute Nucleated RBC 0.0 10^3/ul Nucleated RBC % 0.0 INR (Anticoag Therapy) 1.00 (0.82-1.09) APTT 33.3 (26.0-38.0) seconds ABG pH (7.35-7.45) ABG pCO2 (35-45) mmHg ABG pO2 (80-100) mmHg ABG HCO3 (19-31) mmol/L ABG O2 Saturation (94.0-98.0) % ABG Base Excess (-2.0-2.0) mmol/L Sodium 131 L (135-145) mmol/L Potassium 3.7 (3.5-5.0) mmol/L Chloride 94 L (101-111) mmol/L Carbon Dioxide 25 (22-32) mmol/L Anion Gap 12 H (2-11) mmol/L BUN 48 H (6-24) mg/dL Creatinine 2.41 H (0.51-0.95) mg/dL Est GFR ( Amer) 24.2 (>60) Est GFR (Non-Af Amer) 20.0 (>60) BUN/Creatinine Ratio 19.9 (8-20) Glucose 146 H (70-100) mg/dL Lactic Acid (0.5-2.0) mmol/L Calcium 9.1 (8.6-10.3) mg/dL Total Bilirubin 0.80 (0.2-1.0) mg/dL AST 246 H (13-39) U/L ALT 128 H (7-52) U/L Alkaline Phosphatase 87 (34-104) U/L Troponin I 0.09 H* (<0.04) ng/mL C-Reactive Protein 120.72 H (<8.01) mg/L B-Natriuretic Peptide (<=100) pg/mL Total Protein 7.2 (6.4-8.9) g/dL Albumin 3.7 (3.2-5.2) g/dL Globulin 3.5 (2-4) g/dL Albumin/Globulin Ratio 1.1 (1-3) 03/10/19 03/10/19 03/10/19 Range/Units 22:00 22:00 22:05 WBC (3.5-10.8) 10^3/uL RBC (3.70-4.87) 10^6 /uL Hgb (12.0-16.0) g/dL Hct (35-47) % MCV (80-97) fL MCH (27-31) pg MCHC (31-36) g/dL RDW (10-15) % Plt Count (150-450) 10^3/uL MPV (7.4-10.4) fL Neut % (Auto) % Lymph % (Auto) % [place] % (Auto) % Eos % (Auto) % Baso % (Auto) % Absolute Neuts (auto) (1.5-7.7) 10^3/ul Absolute Lymphs (auto) (1.0-4.8) 10^3/ul Absolute Monos (auto) (0-0.8) 10^3/ul Absolute Eos (auto) (0-0.6) 10^3/ul Absolute Basos (auto) (0-0.2) 10^3/ul Absolute Nucleated RBC 10^3/ul Nucleated RBC % INR (Anticoag Therapy) (0.82-1.09) APTT (26.0-38.0) seconds ABG pH 7.44 (7.35-7.45) ABG pCO2 34 L (35-45) mmHg ABG pO2 83 (80-100) mmHg ABG HCO3 24.5 (19-31) mmol/L ABG O2 Saturation 98.7 H (94.0-98.0) % ABG Base Excess -0.5 (-2.0-2.0) mmol/L Sodium (135-145) mmol/L Potassium (3.5-5.0) mmol/L Chloride (101-111) mmol/L Carbon Dioxide (22-32) mmol/L Anion Gap (2-11) mmol/L BUN (6-24) mg/dL Creatinine (0.51-0.95) mg/dL Est GFR ( Amer) (>60) Est GFR (Non-Af Amer) (>60) BUN/Creatinine Ratio (8-20) Glucose (70-100) mg/dL Lactic Acid 1.4 (0.5-2.0) mmol/L Calcium (8.6-10.3) mg/dL Total Bilirubin (0.2-1.0) mg/dL AST (13-39) U/L ALT (7-52) U/L Alkaline Phosphatase (34-104) U/L Troponin I (<0.04) ng/mL C-Reactive Protein (<8.01) mg/L B-Natriuretic Peptide 38 (<=100) pg/mL Total Protein (6.4-8.9) g/dL Albumin (3.2-5.2) g/dL Globulin (2-4) g/dL Albumin/Globulin Ratio (1-3) Microbiology and Other Data: Microbiology 03/10/19 22:15 Aerobic Blood Culture - Preliminary Blood Venous No Growth Day 3 Anaerobic Blood Culture - Preliminary No Growth Day 3 03/10/19 22:00 Aerobic Blood Culture - Preliminary Blood Venous No Growth Day 3 Anaerobic Blood Culture - Preliminary No Growth Day 3 03/11/19 03:00 Urine Culture - Final Urine 03/11/19 10:51 Legionella Urinary Antigen - Final Urine Negative Legionella Antigen Streptococcus pneumoniae Ag Screen - Final Negative S. pneumo Antigen Assess/Plan/Problems-Billing Assessment: Status and Disposition: Medicine inpatient. Discharge tomorrow if PPM done uneventfully.
--- NOTE | 2019-03-17 07:28 | PN ---
Hospitalist Progress Note Date of Service: 03/17/19 Attending Assessment and Plan HD#7 on 03/17 See resident note for subjective and objective of which I have supervised and agree with. 68F PMH COPD, hypothyroid, non-Hodgkin's lymphoma, presents with viral gastroenteritis and YAJAIRA, course c/b unrelated sinus pauses (?early SSS) and episode of dizziness, now POD #1 s/p PPM. #Viral gastroenteritis, presented with rash as well: Resolved with supportive care #YAJAIRA: Cr returning to baseline, most likely pre renal in the setting of volume loss #Sinus pauses, ? early SSS: Stress test normal, echo normal, lyme titer normal, s/p PPM on POD #1 03/17, tolerating well #COPD: Chart dx not on tx #Hypothyroid: Continue levothryoixine at 75mcg (home dose is 100mcg) #Episode of dizziness: In hospital course, now resolved thought to be BPPV #Hx of Lymphoma: Non contributory #DVT: Lovenox #Code: Full Dispo: Able to be d/c today pending cardiology clearance
[2019-03-17] MEDS: Aspirin EC TAB* 81 MG TAB.EC PO SCH (09:06)
--- NOTE | 2019-03-17 10:01 | PN ---
Subjective Date of Service: 03/17/19 - S/P dc ppm DUE TO HIGH DEGREE AV BLOCK Interval History: s/p DC implant due to high degree AVB per notes. Patient tolerated procedure well. Denies chest pain. denies dizziness. States she is feeling well. Per nurse no events last night. Medications Active Medications: Acetaminophen (Tylenol Tab*) 650 mg PO Q4H PRN PRN Reason: FEVER/PAIN Albuterol/Ipratropium (Duoneb (Albuterol 2.5 Mg/Ipratropium 0.5 Mg)) 1 neb INH [id number] AWAKE PRN PRN Reason: sob/wheexing Aspirin (Aspirin Ec Tab*) 81 mg PO DAILY COUNTS INCLUDE 234 BEDS AT THE [facility] Last Admin: 03/17/19 09:06 Dose: 81 mg Enoxaparin Sodium (Lovenox(*)) 40 mg SUBCUT BEDTIME COUNTS INCLUDE 234 BEDS AT THE [facility] Last Admin: 03/16/19 20:16 Dose: 40 mg Sodium Chloride (Ns 0.9% 1000 Ml) 1,000 mls @ 75 mls/hr IV PER RATE COUNTS INCLUDE 234 BEDS AT THE [facility] Last Admin: 03/17/19 02:45 Dose: 75 mls/hr Cefazolin Sodium 1 gm/ Sodium (Chloride) 50 mls @ 200 mls/hr IVPB Q8H COUNTS INCLUDE 234 BEDS AT THE [facility] Stop: 03/17/19 10:14 Last Admin: 03/17/19 09:06 Dose: 200 mls/hr Levothyroxine Sodium (Synthroid Tab*) 75 mcg PO DAILY@0600 COUNTS INCLUDE 234 BEDS AT THE [facility] Last Admin: 03/17/19 05:29 Dose: 75 mcg Oxycodone/Acetaminophen (Percocet 5/325 Tab*) 1 tab PO Q4H PRN PRN Reason: PAIN Objective Vital Signs: Temp Pulse Resp BP Pulse Ox 98.0 F 73 20 121/89 96 03/17/19 07:17 03/17/19 07:17 03/17/19 07:46 03/17/19 07:17 03/17/19 07:17 Oxygen Devices in Use Now: None, Nasal Cannula Appearance: lying in bed, appears in NAD, A+Ox3 Ears/Nose/Mouth/Throat: NL Teeth, Lips, Gums, Mucous Membranes Moist Neck: NL Appearance and Movements; NL JVP, Trachea Midline Respiratory: - - Diminished but CTA, non labored Cardiovascular: - - device site is intact, no evidence of hematoma. edges are well approximated with no oozing noted., non tender to palpation Abdominal: - - distended, firm, normoactive BS x4 Extremities: - - 2+ bilateral pitting pretibial edema Neurological: Alert and Oriented x 3 Lines/Tubes/Other Access: Clean, Dry and Intact Peripheral IV Laboratory Results: 03/17/19 05:56 03/17/19 05:57 INR (Anticoag Therapy) 0.88 (0.82-1.09) 03/16/19 06:04 APTT 33.3 seconds (26.0-38.0) 03/10/19 22:00 Total Bilirubin 0.80 mg/dL (0.2-1.0) 03/10/19 22:00 AST 246 U/L (13-39) H 03/10/19 22:00 ALT 128 U/L (7-52) H 03/10/19 22:00 Alkaline Phosphatase 87 U/L (34-104) 03/10/19 22:00 B-Natriuretic Peptide 280 pg/mL (<=100) H 03/13/19 06:02 Total Protein 7.2 g/dL (6.4-8.9) 03/10/19 22:00 Albumin 3.7 g/dL (3.2-5.2) 03/10/19 22:00 Globulin 3.5 g/dL (2-4) 03/10/19 22:00 Albumin/Globulin Ratio 1.1 (1-3) 03/10/19 22:00 TSH 0.29 mcIU/mL (0.34-5.60) L 03/12/19 06:26 03/10/19 03/11/19 03/13/19 22:00 00:20 06:02 Troponin I 0.09 H* 0.07 H* 0.07 H* 03/15/19 06:46 Troponin I 0.02 Laboratory Results - last 24 hr 03/15/19 03/17/19 03/17/19 14:30 05:56 05:57 WBC 11.6 H RBC 3.42 L Hgb 10.5 L Hct 31 L MCV 90 MCH 31 MCHC 34 RDW 14 Plt Count 233 MPV 9.1 Neut % (Auto) 67.2 Lymph % (Auto) 23.3 [place] % (Auto) 6.4 Eos % (Auto) 2.6 Baso % (Auto) 0.5 Absolute Neuts (auto) 7.8 H Absolute Lymphs (auto) 2.7 Absolute Monos (auto) 0.7 Absolute Eos (auto) 0.3 Absolute Basos (auto) 0.1 Absolute Nucleated RBC 0.0 Nucleated RBC % 0.1 Hem Pathologist Commnt Sodium 141 Potassium 4.4 Chloride 107 Carbon Dioxide 24 Anion Gap 10 BUN 28 H Creatinine 1.21 H Est GFR ( Amer) 53.7 Est GFR (Non-Af Amer) 44.4 BUN/Creatinine Ratio 23.1 H Glucose 107 H Calcium 7.8 L Diagnostic Imaging: *[facility]* [place] [address] Fax #: [phone] Transthoracic Echocardiogram Patient: Nidhi Quevedo : 1950 Study Date: 03/13/2019 Age: 68 Gender: F HR: 84 bpm Height: 67 in /170.2 cm BSA: 2.13 m^2 Weight: 226.5 lb /103 kg BMI: 35.6 kg/m^2 *Bullet Swaging Machine Operator: * Kristin Way [facility] RN *Referring Physician: * Hrei Beltran MD *Reading Physician: * Heri Beltran MD Indications: SOB. Abnormal EKG. History: Chronic obstructive pulmonary disease. Non-Hodgkins lymphoma. Hypothyroidism. Risk factors: Obese. Dyslipidemia. Conclusions Summary: - Impressions: The study is unchanged since the study of May 2018. - Left ventricle: The cavity size is normal. Wall thickness is mildly increased. Systolic function is normal. The estimated ejection fraction is 65-70%. - Right ventricle: The cavity size is normal. Wall thickness is moderately increased. - Mitral valve: There is trace regurgitation. - Aortic valve: The leaflets are mildly thickened. There is trace to mild regurgitation. - Tricuspid valve: There is trace regurgitation. Study data: Transthoracic echocardiogram. Procedure: This report is only to be considered final once signed by the Provider(s) as displayed in the "<Electronically Signed by >" field (s). Absence of a signature indicates the report is in a draft status and still needs to be finalized. In the event this document was created by someone other than the signing Provider, the individual initiating the document will be listed in the "Entered by:" or "Dictated by:" reyez. Patient Name: NIDHI QUEVEDO Medical Record#: [id number] Ordering Physician: Heri Beltran MD Acct.#: [id number] : 1950 Age: 68 Sex: F Location: [address] [place] [address] MEDICAL/TELEMETRY Exam Date: 03/13/191706 ADM Status: ADM IN Order Information: NUCLEAR CARDIAC STRESS TEST Accession Number: [id number] CPT: 96289 Indication: Abnormal EKG. Myocardial perfusion scan was performed utilizing 1 day protocol. Rest myocardial perfusion was performed after intravenous injection of 10.7 mCi of technetium 99 and tetrofosmin. Pharmacological stress was applied and 25.7 mCi of technetium 99m tetrofosmin was injected. The stress images demonstrates homogeneous distribution of the radiotracer throughout the left ventricle. The rest images demonstrates a defect. This is of uncertain etiology. Regardless no reversible change is noted. No fixed defect is identified. The ejection fraction at rest is 75%. Evaluation of wall motion demonstrates no focal wall motion abnormality. IMPRESSION: No fixed or reversible perfusion defects are identified. ASSESSMENT: Low risk Based on imaging criteria from ACC/AHA 2002 Guideline Update for the Management of Patients With Chronic Stable Angina Table 23. Noninvasive Risk Stratification. <Electronically signed by Marilynn Chambers MD in OV> 03/13/19 1228 Dictated By: Marilynn Chambers MD Dictated Date/Time: 03/13/19 1228 Transcribed Date/Time: 03/13/19 1223 Copy to: CC:Leny Aguilera MD; Poonam Gonzalez DISTRICT [employer] BAILIFF; Oral Ibarra MD; Heri Beltran MD; Laurence Akhtar MD Imaging - [facility] - [place] [facility] [address] [address] ph ([phone]) ph ([phone]) ph ([phone]) This report is only to be considered final once signed by the Provider(s) as displayed in the "<Electronically Signed by >" field (s). Absence of a signature indicates the report is in a draft status and still needs to be finalized. In the event this document was created by someone other than the signing Provider, the individual initiating the document will be listed in the "Entered by:" or "Dictated by:" reyez. 1 of 2 EKG Data: Telemetry reviewed; Sinus with periods of intermittantly paced rhythm rate 70' s. ECG 03/17/2019 Sinus rhythm rate 68 LAFB with known RBBB. Assessment/Plan #1 s/p DC PPM due to high degree AVB. Device site evaluated. no pocket hematoma. edges are well approximated with amena in situ. Device interrogation today was normal. RV pacing threshold 0.5V@ 0.4ms. Atrial lead pacing threshold 0.5V @ 0.4ms. WRITING CENTER DIRECTOR 0.2%, atrial paced 0.5%. RV sensing low at implant and also on today's check. no AF. She will need to go home on Keflex 250mg Po TID X3 days. f/u in our practice for wound evaluation, set up with device clinic and staple removal next week. She may shower starting 03/18/2019 no bathing or swimming until further directed. She states she does not drive. She is not able to move LUE above shoulder for 6 weeks, she is to wear arm sling for the next 6 weeks, no lifting more than 5 lbs until further directed. Wound care was reviewed with her. CXR negative for pneumothorax. #2 DVT Prophylaxsis on sub Q Lovenox. #3 h/o thyroid disease. TSH this admit .29 on levothyroxine therapy. Differ to primary team #4 disposition pending course. Will sign off. Will d/w Dr. Lantigua. Attending: Mahesh Lantigua
[2019-03-17 11:18] VITALS: BP 159/81
--- NOTE | 2019-03-17 16:01 | DS ---
CC: Poonam Gonzalez NP; Camden Salgado DO DISCHARGE SUMMARY: DATE OF ADMISSION: 03/11/19 DATE OF DISCHARGE: 03/17/19 PRIMARY CARE PROVIDER: Poonam Gonzalez NP. BILL SORTER: Camden Salgado DO. DISPOSITION AT THE TIME OF DISCHARGE: Stable, discharged to home. PRIMARY DIAGNOSES: 1. Infectious colitis. 2. High-grade atrioventricular block/sick sinus syndrome, status post pacemaker placement on 9. 3. Acute kidney injury. SECONDARY DIAGNOSES: 1. Hypothyroidism. 2. Chronic obstructive pulmonary disease, not on inhaler treatment. 3. Distant history of non-Hodgkin lymphoma. MEDICATIONS ON DISCHARGE: Include: 1. Acetaminophen 650 mg p.o. q.4 hours p.r.n. 2. Levothyroxine 75 mcg p.o. daily. 3. Aspirin 81 mg p.o. daily. 4. Keflex 250 mg p.o. t.i.d. for 3 days status post discharge. Changes in medications during this hospitalization included the dose change of levothyroxine from 100 mcg to 75 mcg and the addition of Keflex 250 mg p.o. t.i.d. Otherwise, no medication changes. HISTORY OF PRESENT ILLNESS AND HOSPITAL COURSE: This is a 68-year-old female with a past medical his tory as per above who presented to the emergency room on 03/11/19 with a complaint of upper respirato ry symptoms along with rash and gastroenteritis- type symptoms with diarrhea and vomiting. The patie nt was admitted to the hospitalist service for what was presumed to be an upper respiratory infection and possible COPD exacerbation as well as viral gastroenteritis. She was also found to have an acut e YAJAIRA. For acute YAJAIRA, her hospital course was also complicated by incidental finding of high-degree AV block noted later during hospital course and ultimately, cardiology was involved unrelated to pres enting fashion. Her hospital course by problem is as follows: 1. Upper respiratory infection accompanied with viral gastroenteritis and rash. The patient appeared to have a viral process. Panculture was done, which ultimately was negative including stool culture s, antibiotics were held, and supportive care with IV fluids proved to be efficacious in returning he r to her baseline symptoms. Her rash ultimately passed with the resolution of her viral gastroenteri tis symptoms and the patient made a complete recovery. 2. YAJAIRA. The patient had significant YAJAIRA on admission with creatinine elevation to 2.2. The patient improved with IV fluid rehydration and creatinine on the day of discharge was 1.21. She is voiding freely without complications, which is most likely secondary to prerenal in the setting of volume los s with acute nausea, vomiting, and diarrhea. 3. Incidental sinus pauses. During the hospitalization, the patient had incidental sinus pauses and palpitations. Cardiology was consulted who felt this was unrelated and in fact, the patient has a h istory of ectopy with thyroid issues in the past. EKG showed long sinus pauses and ultimately read b y cardiology as progressing towards a high-grade block, which is indication for pacemaker. The patie nt was consented for this procedure and did get pacemaker placed on 03/16/19. After discussion of the pros and cons of cardiology and risks for complications with progression to high-grade block as an o utpatient, ultimately, the patient tolerated the procedure well and has a followup with cardiology as scheduled. 4. Hypothyroidism. The patient's TSH was low and levothyroxine dose was lowered during this hospita lization and on discharge unchanged dosage. 5. Status post pacemaker placement. As above, the patient had pacemaker placed on 03/16/19. The lady carter tolerated the procedure well and was followed with cardiology, who prescribed Keflex prophylact ically for 3 days status post discharge. 6. History of lymphoma, is noncontributory. 7. COPD, ?whether the patient had COPD exacerbation with her upper respiratory infection or if this is reactive airway disease and chronic bronchitis. She is now on home inhalers and she has no wheezi ng. She did receive some nebulizer treatments here with benefit, although all upper respiratory infe ction symptoms had cleared by the time of discharge. Thus, she was not discharged on inhalers. Decis ion to start control inhalers pending PFT or other workup can be made by primary care. 8. Sinus process. The patient was tested for Lyme disease, which was negative. Labs on the day of discharge are unremarkable with the exception of creatinine of 1.21 and mild leuko cytosis to 11.6, which was much improved from admission. Lyme testing was negative. The patient is tolerating diet, ambulating and voiding freely, and ready for discharge to home. She is stable for d ischarge to home. She has followups with primary care and cardiology scheduled. LABS AND STUDIES DONE DURING THIS HOSPITALIZATION: Chest x-ray done on 03/10/19 showed no acute card iopulmonary infiltrate. EKGs, numerous were done during this hospitalization, which ultimately showe d long sinus pauses of greater than 3 seconds. A nuclear medicine stress test was done on 03/13/19, which showed low risk for ischemic event. An echocardiogram was done on 03/12/19, which showed eject ion fraction of 65% to 70%, trace regurgitation in mitral valve, trace regurgitation in aortic valve, but otherwise no acute findings. Pacemaker was placed on 03/16/19. CONSULTATIONS DURING THIS HOSPITALIZATION: Included Dr. Ibarra of infectious disease, who recommen ded following stool studies and suggested diagnosis of gastroenteritis either viral or bacterial as e tiology of her rash, fever, and liquid diarrhea and recommended no further antibiotics. Also, Cardio logy was consulted for her high-grade block. ITEMS TO FOLLOW UP ON STATUS POST DISCHARGE: 1. Status post recent pacemaker. Ensure the patient is healing well and has staple removal with Dr. Salgado as per indicated on discharge paperwork. 2. Hypothyroidism, needs thyroid panel function checked in 6 to 8 weeks with primary care given dose change. Plan of care was discussed with the patient and her family. They have no further questions and are r randall to be discharged to home without services. They understand to return to the emergency room if t here are any complications with the pacemaker or new or worsening symptoms regarding to her most rece nt presentation. TIME SPENT: Forty minutes were spent in the planning of this discharge with over half of that spent directly at the bedside of the patient providing direct patient care. If there are any questions about the care of this patient during this hospitalization, please do not hesitate to reach out to the hospitalist team. [id number]/[facility] #: [id number]
--- NOTE | 2019-03-17 20:34 | OP ---
CC: Dr. Beltran * DATE OF PROCEDURE: 03/16/19 - ROOM #443 DATE OF STUDY: 03/16/19 DATE OF : 52 SURGEON: Mahesh Lantigua MD. ANESTHESIA: Local anesthesia with conscious sedation. PRE-OP DIAGNOSIS: Asystole, bradycardia. POST-OP DIAGNOSIS: Asystole, bradycardia. OPERATIVE PROCEDURE: Dual chamber pacemaker implantation. ESTIMATED BLOOD LOSS: None. COMPLICATIONS: None. INDICATIONS: The patient is a 68-year-old female who was admitted to the hospital because of shortness of breath, abdominal pain and diarrhea. While she was in the emergency room, she was having runs of severe bradycardia, third degree heart block and had an 8-second asystolic episode. The patient was recommended for dual chamber pacemaker implantation. DESCRIPTION OF PROCEDURE: The patient was brought to the procedure room in a fasting state. Informed consent had been obtained prior to the procedure. All labs were reviewed. The patient was placed supine on the procedure table. Her left deltopectoral area was cleaned and draped in the usual fashion. 1% lidocaine was used for local anesthesia. Under ultrasound guidance, the axillary vein was entered via Seldinger technique and a guidewire was placed. A second guidewire was placed under the same technique. A 4 cm incision was made in the pectoral area. Blunt dissection was carried down to the pectoral fascia and a pocket was fashioned for the pacemaker. Over the first guidewire, a 7-Libyan sheath introducer was placed through which a right ventricular lead was advanced to the RV apex. Initial testing showed an R wave sensitivity of 1.8. The lead was moved to multiple positions in the apex free wall of the right ventricle and of the septum. Despite multiple placements, the best R- wave sensitivity that could be measured was 2.9. Ultimately, the lead was screwed into the low septal wall of the right ventricle and a P-wave sensitivity of 2.5, impedance 571 ohms, threshold of 1volt at 0.5 msec. The ventricular lead was sutured to the pectoral fascia. The ventricular lead is a Medtronic model 5076, serial number [id number]. Over the second guidewire a 7- [place] sheath introducer was placed through which a right atrial lead was advanced to high right atrium. The right atrial lead is a Medtronic, model 5076 , serial number [id number]. Had a P-wave sensitivity of 3.1, impedance 500 ohms , threshold 1 volt at 0.5 msec. The atrial lead was sutured to the pectoral fascia. The pocket was flushed. A generator was attached appropriately to the atrioventricular lead. The generator is a Unitask model W1DR01, serial number [id number]. The device was placed in the pocket. The surgical incision was closed in 3 layers. The patient was returned to the holding area in stable condition. [id number]/[facility] #: [id number] [facility]ITAL[facility]
== END 2019-03-17 15:30 | disposition home or self-care (01) | DRG 982 ==
LOC: ED 21:14 → MEDTELE 03-11 00:08
PROVIDERS: ADMIT Internal Medicine; ATTEND Internal Medicine
PROC: 4A02XM4 Measurement of Cardiac Total Activity, External Approach (ICD-10-PCS; 2019-03-13)
PROC: 02HK3JZ Insertion of Pacemaker Lead into Right Ventricle, Percutaneous Approach (ICD-10-PCS; 2019-03-16)
PROC: 02H63JZ Insertion of Pacemaker Lead into Right Atrium, Percutaneous Approach (ICD-10-PCS; 2019-03-16)
PROC: 0JH606Z Insertion of Pacemaker, Dual Chamber into Chest Subcutaneous Tissue and Fascia, Open Approach (ICD-10-PCS; principal; 2019-03-16 15:30)
DX: N17.9 Acute kidney failure, unspecified (principal); A08.39 Other viral enteritis; J44.1 Chronic obstructive pulmonary disease with (acute) exacerbation; I45.2 Bifascicular block; I44.2 Atrioventricular block, complete; J96.10 Chronic respiratory failure, unspecified whether with hypoxia or hypercapnia; E86.0 Dehydration; E03.9 Hypothyroidism, unspecified; F17.210 Nicotine dependence, cigarettes, uncomplicated; I49.5 Sick sinus syndrome; R79.89 Other specified abnormal findings of blood chemistry; E78.5 Hyperlipidemia, unspecified; E66.9 Obesity, unspecified; Z85.72 Personal history of non-Hodgkin lymphomas; Z98.51 Tubal ligation status; Z82.49 Family history of ischemic heart disease and other diseases of the circulatory system; Z83.3 Family history of diabetes mellitus; Z79.82 Long term (current) use of aspirin; Z68.35 Body mass index [BMI] 35.0-35.9, adult
CPT/HCPCS: 33208; 36415; 71045; 71046; 78452; 80048; 80053; 81003; 81015; 82803; 83605; 83735; 83880; 84443; 84484; 85025; 85060; 85610; 85730; 86140; 86618; 86747; 87040; 87086; 87899; 93005; 93017; 93306; 99156; 99157; 99284; A9270-GY; A9502; C1785; C1892; C1898; C8929; J0280; J0461; J0690; J1644; J1650; J2250; J2785; J2920; J2930; J3010; J3475; J7512

== ENCOUNTER 2019-09-30 11:24 | Day surgery (SDC) | payer MEDICARE ==
[~2019-09-30 11:24] MED LIST changes: -Buffered Lidocaine 0.9% SYRIN* 5 ML/SYR SYRINGE INTRADERM ONE; +Buffered Lidocaine 1% SYRIN* 1 ML/SYRINGE INTRADERM ONE; -Famotidine IV* 10 MG/ML 2 ML (20 mg) IV ONE; +Lactated Ringers 1000 ML Bag* 1,000 ML IV SCH; -Metoclopramide TAB* 10 MG PO ONE
[2019-09-30] MEDS ORDERED: Rocuronium* 10 MG/ML VIAL ONE (12:13)
[2019-09-30] MEDS ORDERED: Naloxone* 0.4 MG/ML 1 ML VIAL IV PRN (12:37)
[2019-09-30] MEDS ORDERED: HYDROmorphone INJ1* 1 MG/ML SYRINGE IV PRN (12:37)
[2019-09-30] MEDS ORDERED: Benzocaine/Butamben/Tetracain (CETACAINE - SINGLE USE) 5 gm TOPICAL ONE (12:58)
[2019-09-30] MEDS ORDERED: fentaNYL* 50 MCG/ML 2 ML VIAL (100 MCG VIAL) ONE (13:08)
[2019-09-30] MEDS ORDERED: Ondansetron INJ* 2 MG/ML VIAL ONE (13:25)
[2019-09-30] MEDS ORDERED: Dexamethasone IV* 4 MG/ML 1 ML (4 MG) ONE (13:25)
[2019-09-30] MEDS ORDERED: Etomidate* 2 MG/ML 10 ML VIAL ONE (13:25)
--- NOTE | 2019-09-30 15:04 | BRIEFOPN ---
Brief Operative/Procedure Note - Operation Details Pre-Op Diagnosis: Lung nodules and enlarged lymph nodes Post-Op Diagnosis: Low grade lymphoma Procedures: Bronchoscopy/EBUS with FNA of station 7 and R4 nodes Surgeon(s)/Proceduralists: anne-marie Yi Anesthesia: GA Estimated Blood Loss: Negligable Findings: No endobronchial lesions. No metastatic disease in lymph nodes, CRISTINA suggestive of possible low grade lymphoma Specimen(s)/Culture(s) Description: FNA from R4, station 7 Complications: None
[2019-09-30 16:06] VITALS: BP 125/72
--- NOTE | 2019-10-01 00:12 | PRO ---
BRONCHOSCOPY REPORT: DATE OF PROCEDURE: 09/30/19 - [facility] PROCEDURE PERFORMED: Bronchoscopy with endobronchial ultrasound-guided fine needle aspiration of mediastinal nodes. PREPROCEDURAL DIAGNOSES: Enlarged lymph nodes, pulmonary nodules. POSTPROCEDURAL DIAGNOSIS: Possible lymphoma involvement of the lymph nodes. ANESTHESIA: General anesthesia. DESCRIPTION OF PROCEDURE: Informed consent was obtained from the patient prior to the procedure after all the risks and benefits were thoroughly explained. The patient was intubated with size 8.5 endotracheal tube. Flexible Olympus bronchoscope was inserted through ET tube after appropriate time-out was agreed on by attending staff. Informed consent was also obtained from the patient prior to the procedure after all the risks and benefits were thoroughly explained. Olympus bronchoscope was inserted through ET tube. ET tube positioning confirmed to be 2.5 cm above the level of lokesh. Bronchoscope was then advanced into the right bronchial tree, which was inspected. No endobronchial lesions were noted. Thick secretions were noted and were suctioned out. Bronchoscope was then advanced into the left bronchial tree, which was inspected. No endobronchial lesions were noted. Thick secretions were noted and were suctioned. Bronchoscope was then withdrawn and EBUS bronchoscope was inserted. Station 7 was minimally enlarged and was sampled with 2 passes. Rapid onsite evaluation revealed lymphatic tissue with no malignant cells. R4 was then accessed with 4 passes. Rapid onsite evaluation revealed lymphatic tissue with no other suspicious malignant cells. Specimen was also placed in [employer]to[employer] for flow cytometry. Rest of the specimen was placed in formalin for cell block. Bronchoscope was then withdrawn and the Olympus bronchoscope was reinserted for inspection of any bleeding. Minimal bleeding was noted and was suctioned out. The patient was extubated and seen in Recovery in optimal condition. The patient tolerated the procedure well. [id number]/[facility] #: [id number] [facility]
== END 2019-09-30 16:05 | disposition home or self-care (01) ==
LOC: OR 11:24
PROVIDERS: ATTEND Internal Medicine
DX: R59.0 Localized enlarged lymph nodes (principal); R91.8 Other nonspecific abnormal finding of lung field; J44.9 Chronic obstructive pulmonary disease, unspecified; R06.00 Dyspnea, unspecified; I10 Essential (primary) hypertension; E03.9 Hypothyroidism, unspecified; M19.90 Unspecified osteoarthritis, unspecified site
CPT/HCPCS: 88172; 88173; 88177; 88184; 88187; 88188; 88189; 88305; J1100; J2405; J3010